=== PATIENT | female | born 1955 | race Caucasian/White ===

== ENCOUNTER → 2016-06-09 | Outpatient (REF) | payer BC ==
[2016-06-09 18:08] LABS: ALBUMIN 3.8 GM/DL (3.2-5.2); ALBUMIN/GLOBULIN RATIO 1.31 (1.00-1.93); ALKALINE PHOSPHATASE 86 U/L (45-117); ALT/SGPT 18 U/L (12-78); ANION GAP 7 MEQ/L (8-16); AST/SGOT 18 U/L (15-37); BILIRUBIN,TOTAL 0.2 MG/DL (0.2-1.0); BLOOD UREA NITROGEN 14 MG/DL (7-18); CALCIUM LEVEL 8.9 MG/DL (8.8-10.2); CARBON DIOXIDE LEVEL 28 MEQ/L (21-32); CHLORIDE LEVEL 108 MEQ/L (98-107); CREATININE FOR GFR 0.74 MG/DL (0.55-1.02); GLOMERULAR FILTRATION RATE > 60.0 (>45); GLUCOSE, FASTING 88 MG/DL (80-110); POTASSIUM SERUM 4.4 MEQ/L (3.5-5.1); SODIUM LEVEL 143 MEQ/L (136-145); TOTAL PROTEIN 6.7 GM/DL (6.4-8.2)
== END ==
LOC: M SFHCPLAZ 15:27
PROVIDERS: ATTEND Nurse Practitioner Adult Health
DX: I50.30 Unspecified diastolic (congestive) heart failure (principal); R73.01 Impaired fasting glucose; E03.9 Hypothyroidism, unspecified

== ENCOUNTER → 2016-06-20 | Outpatient (CLI) | payer OTHER, BC ==
[2016-06-20 15:02] LABS: INR 0.97
== END ==
LOC: M LAB 14:31
PROVIDERS: ATTEND Physical Medicine & Rehabilitation
DX: M47.896 Other spondylosis, lumbar region (principal)

== ENCOUNTER 2016-07-30 16:32 | Emergency (ER) | payer OTHER, BC ==
[~2016-07-30] VITALS: Ht 165.1 cm; Wt 90.7 kg
[2016-07-30] MEDS ORDERED: ANAS1TAB (16:47)
[2016-07-30] MEDS ORDERED: OXYCODONE ACETAMINOPHEN (16:47)
[2016-07-30] MEDS ORDERED: LEVO100T5 (16:47)
[2016-07-30] MEDS ORDERED: DULO1CAP2 (16:47)
[2016-07-30] MEDS ORDERED: VITA50003 (16:47)
[2016-07-30] MEDS ORDERED: METH-107 (16:47)
[2016-07-30] MEDS ORDERED: OMEP40CA2 (16:47)
[2016-07-30] MEDS ORDERED: MEDR4PAK PO (18:01)
[2016-07-30] MEDS ORDERED: ROBA500T PO (18:03)
[2016-07-30 18:16] VITALS: BP 128/60
== END 2016-07-30 18:15 | disposition home or self-care (01) ==
LOC: M ED 17:24
DX: M54.5 Low back pain (principal); G89.29 Other chronic pain

== ENCOUNTER → 2016-09-12 | Outpatient (CLI) | payer BC ==
[~2016-09-12] MED LIST: ANAS1TAB; DULO1CAP2; LEVO100T5; MEDR4PAK PO; METH-107; OMEP40CA2; OXYCODONE ACETAMINOPHEN; ROBA500T PO; VITA50003
--- NOTE | 2016-09-12 14:11 | REP ---
UNILATERAL MAMMOGRAM RIGHT BREAST: Unilateral mammogram of the right breast is performed in the MLO and CC projections. Patient has a history of left breast cancer and mastectomy. Comparison 08/10/2015 as well as other prior exams. Fibroglandular pattern is unchanged with no new mass or architectural distortion. No clustered microcalcifications are seen. IMPRESSION: ACR 2 benign mammogram right breast in this patient status post left mastectomy. Suggest followup mammogram in 1 year. This mammogram was interpreted with the aid of an FDA-approved computer-aided detection system. The patient states she/he had a clinical breast exam in 08/2016. The patient letter being requested is M1. Signed by Piyush Gregg MD 09/12/2016 05:44 P
== END ==
LOC: M RAD 13:29
PROVIDERS: ATTEND Internal Medicine Medical Oncology
DX: Z12.31 Encounter for screening mammogram for malignant neoplasm of breast (principal)

== ENCOUNTER → 2016-09-29 | Outpatient (REF) | payer BC | LOC: M LAB REF 16:28 | PROVIDERS: ATTEND Obstetrics & Gynecology | DX: R30.0 Dysuria (principal) ==

== ENCOUNTER → 2016-09-29 | Outpatient (CLI) | payer BC ==
--- NOTE | 2016-10-03 09:42 | DEXA ---
AP SPINE L1 - L4 0.973 -1.8 -1.5 LT FEMUR TOTAL 0.864 -1.1 -0.9 RT FEMUR TOTAL 0.848 -1.3 -1.0 TOTAL BODY TOTAL OTHER DUAL FEMUR FRAX* ASSESSMENT Risk factors: Mother hip fracture, tobacco user, possible premature menopause. 10 year probability of fracture Major osteoporotic fracture 15.8 % Hip fracture 1.5 % COMMENTS: There is low bone density of the spine and hips. The density of the spine has decreased 10.2% since 01/09/2003. The density of the left hip has increased 1.6% since 01/09/2003. The density of the right hip has decreased 1.6% since 01/09/2003. FOLLOW-UP: Recommendation for the next bone density exam: 2 years. AMEYA
== END ==
LOC: M WHC 14:00
PROVIDERS: ATTEND Internal Medicine Medical Oncology
DX: Z13.820 Encounter for screening for osteoporosis (principal)

== ENCOUNTER 2017-01-16 19:24 | Emergency (ER) | payer OTHER, BC ==
[~2017-01-16] VITALS: Ht 167.6 cm; Wt 90.9 kg
[~2017-01-16 19:24] MED LIST changes: -METH-107; +METH1TAB40; +VITA1CAP40; -VITA50003
[2017-01-16 19:25] VITALS: BP 141/88
[2017-01-16] MEDS ORDERED: diazePAM 5 MG TAB PO ONE (22:45)
[2017-01-16] MEDS ORDERED: OXYCODONE/APAP 5MG/325MG(BULK FOR ED) 1 TABLET PO ONE (22:45)
== END 2017-01-16 22:55 | disposition home or self-care (01) ==
LOC: M ED 19:24
DX: G89.29 Other chronic pain (principal); M54.5 Low back pain; I25.9 Chronic ischemic heart disease, unspecified; E07.9 Disorder of thyroid, unspecified; K21.9 Gastro-esophageal reflux disease without esophagitis; Z79.899 Other long term (current) drug therapy; Z88.0 Allergy status to penicillin; Z88.8 Allergy status to other drugs, medicaments and biological substances; F17.210 Nicotine dependence, cigarettes, uncomplicated

== ENCOUNTER → 2017-05-01 | Outpatient (REF) | payer OTHER ==
[2017-05-01 16:07] LABS: INR 0.85
== END ==
LOC: M LABDRAW1 13:43
PROVIDERS: ATTEND Physical Medicine & Rehabilitation
DX: M48.07 Spinal stenosis, lumbosacral region (principal)

== ENCOUNTER → 2017-09-08 | Outpatient (CLI) | payer OTHER | LOC: M RAD 13:58 | DX: F17.210 Nicotine dependence, cigarettes, uncomplicated (principal) | CPT/HCPCS: G0297 ==

== ENCOUNTER → 2017-11-21 | Outpatient (CLI) | payer OTHER | LOC: M RAD 14:09 | DX: Z12.31 Encounter for screening mammogram for malignant neoplasm of breast (principal); Z85.3 Personal history of malignant neoplasm of breast; Z90.12 Acquired absence of left breast and nipple | CPT/HCPCS: 77067 ==

== ENCOUNTER → 2018-05-17 | Outpatient (REF) | payer OTHER ==
[~2018-05-17] MED LIST changes: -ANAS1TAB; +ANAS1TAB2; +FURO40TA2 OR; +OXYC-517 PO; +OXYC1TAB23 PO; +TIZA2TA OR; -VITA1CAP40; +VITA50005
[2018-05-17 12:33] LABS: HEMATOCRIT 44.3 % (36.0-47.0); HEMOGLOBIN 14.9 g/dl (12.0-15.5); MEAN CORPUSCULAR HEMOGLOBIN 30.6 pg (27.0-33.0); MEAN CORPUSCULAR HGB CONC 33.6 g/dl (32.0-36.5); PLATELET COUNT, AUTOMATED 262 10^3/uL (150-450); RED BLOOD COUNT 4.87 10^6/uL (4.00-5.40); WHITE BLOOD COUNT 6.4 10^3/uL (4.0-10.0)
[2018-05-17 12:45] LABS: ALBUMIN 3.7 GM/DL (3.2-5.2); ALT/SGPT 54 U/L (12-78); BILIRUBIN,TOTAL 0.4 MG/DL (0.2-1.0); BLOOD UREA NITROGEN 13 MG/DL (7-18); CARBON DIOXIDE LEVEL 27 MEQ/L (21-32); CHLORIDE LEVEL 106 MEQ/L (98-107); CREATININE FOR GFR 0.97 MG/DL (0.55-1.30); GLOMERULAR FILTRATION RATE > 60.0 (>45); GLUCOSE, FASTING 88 MG/DL (70-100); POTASSIUM SERUM 4.6 MEQ/L (3.5-5.1); SODIUM LEVEL 139 MEQ/L (136-145); TOTAL PROTEIN 6.8 GM/DL (6.4-8.2)
== END ==
LOC: M SFHCPLAZ 09:32
PROVIDERS: ATTEND Nurse Practitioner Adult Health
DX: I50.30 Unspecified diastolic (congestive) heart failure (principal); E03.9 Hypothyroidism, unspecified

== ENCOUNTER → 2018-07-02 | Outpatient (REF) | payer OTHER ==
[~2018-07-02] MED LIST changes: +ANAS1TAB2 PO
[2018-07-02 12:43] LABS: INR 0.92; PROTHROMBIN TIME 12.5 SECONDS (12.1-14.4)
[2018-07-02 12:44] LABS: PARTIAL THROMBOPLASTIN TIME 30.3 SECONDS (25.4-37.6)
== END ==
LOC: M LABDRAW1 11:03
PROVIDERS: ATTEND Physician Assistant
DX: Z01.812 Encounter for preprocedural laboratory examination (principal)

== ENCOUNTER → 2018-07-13 | Outpatient (CLI) | payer OTHER ==
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
== END ==
LOC: M PAIN 14:45
PROVIDERS: ATTEND Anesthesiology
DX: M46.1 Sacroiliitis, not elsewhere classified (principal); M47.816 Spondylosis without myelopathy or radiculopathy, lumbar region; G89.29 Other chronic pain; Z85.3 Personal history of malignant neoplasm of breast; Z92.21 Personal history of antineoplastic chemotherapy; E55.9 Vitamin D deficiency, unspecified; M85.80 Other specified disorders of bone density and structure, unspecified site; Z86.69 Personal history of other diseases of the nervous system and sense organs; R73.01 Impaired fasting glucose; E78.5 Hyperlipidemia, unspecified; E03.9 Hypothyroidism, unspecified; F17.210 Nicotine dependence, cigarettes, uncomplicated; Z88.0 Allergy status to penicillin; Z88.1 Allergy status to other antibiotic agents; Z88.6 Allergy status to analgesic agent; Z88.8 Allergy status to other drugs, medicaments and biological substances; K21.9 Gastro-esophageal reflux disease without esophagitis; Z79.899 Other long term (current) drug therapy

== ENCOUNTER 2018-09-19 17:07 | Emergency (ER) | payer OTHER ==
[~2018-09-19] VITALS: Ht 165.1 cm; Wt 115.0 kg
--- NOTE | 2018-09-19 18:57 | REPVR ---
EXAM: US Duplex Left Lower Extremity Veins, Limited EXAM DATE/TIME: 09/19/2018 6:26 PM CLINICAL HISTORY: 63 years old, female; Pain; Leg, upper; Left; Additional info: Left leg pain, swelling TECHNIQUE: Imaging protocol: Real-time Duplex ultrasound of the Left Lower Extremity with 2-D plummer scale, color Doppler flow and spectral waveform analysis. Limited exam focused on the left lower extremity veins. COMPARISON: No relevant prior studies available. FINDINGS: Left deep veins: Unremarkable. The common femoral, femoral, proximal profunda femoral and popliteal veins are patent without thrombus. Normal Doppler waveforms. Normal compressibility and/or augmentation response. Left superficial veins: Unremarkable. Saphenofemoral junction is patent without thrombus. Soft tissues: Unremarkable. IMPRESSION: No acute findings. No evidence of deep vein thrombosis. Electronically signed by: Elmer Bedoya On 09/19/2018 18:56:49 PM
[2018-09-19] MEDS ORDERED: LYRI75CA PO ×2 (19:14→20:09)
[2018-09-19 19:15] VITALS: BP 136/66
[2018-09-19] MEDS ORDERED: PREGABALIN 75 MG CAP(LYRICA) PO ONE (19:15)
== END 2018-09-19 20:18 | disposition home or self-care (01) ==
LOC: M ED 17:07
DX: G62.9 Polyneuropathy, unspecified (principal); I50.9 Heart failure, unspecified; E78.5 Hyperlipidemia, unspecified; G89.29 Other chronic pain; M54.5 Low back pain; E03.9 Hypothyroidism, unspecified; Z79.899 Other long term (current) drug therapy; Z79.890 Hormone replacement therapy; Z88.0 Allergy status to penicillin; Z88.8 Allergy status to other drugs, medicaments and biological substances; F17.210 Nicotine dependence, cigarettes, uncomplicated

== ENCOUNTER → 2018-09-21 | Outpatient (CLI) | payer OTHER ==
[~2018-09-21] MED LIST changes: +LYRI75CA PO
--- NOTE | 2018-09-22 11:30 | ECHO ---
DATE OF STUDY: 09/21/2018 REFERRING INDIVIDUAL: MARLEY Long INDICATION: Diastolic heart failure. HEIGHT: 65 inches. WEIGHT: 245 pounds. 2D MEASUREMENTS: Aortic annulus: 2.3 cm Aortic root: 3.5 cm Left atrium: 3.1 cm Ventricular septum: 1.22 cm Posterior wall: 1.17 cm Left ventricle diastole: 4.1 cm DOPPLER MEASUREMENTS: Aortic valve velocity: 103 cm/s LVOT velocity: 71.7 cm/s Mitral E velocity: 49.5 cm/s Mitral A velocity: 55.3 cm/s Mitral deceleration time: 280 ms MITRAL ANNULAR TISSUE DOPPLER: E prime septal: 6.63 cm/s E prime lateral: 6.74 cm/s DESCRIPTION: Rhythm was sinus. This was a moderately technically difficult echocardiogram. No pericardial effusion. Frequent premature ventricular contractions (PVCs). CONCLUSIONS: 1. Borderline concentric left ventricle hypertrophy. Normal regional left ventricular (LV) wall motion and wall thickening. Normal LV systolic function. Left ventricular ejection fraction (LVEF) 65% by visual estimate. Grade 1 LV diastolic dysfunction. 2. Frequent PVCs. 3. Moderately technically difficult echocardiogram. 4. Otherwise, normal-appearing echocardiogram Doppler findings.
== END ==
LOC: M CARPUL 10:20
PROVIDERS: ATTEND Nurse Practitioner Adult Health
DX: I50.30 Unspecified diastolic (congestive) heart failure (principal)

== ENCOUNTER → 2018-10-31 | Outpatient (CLI) | payer OTHER ==
--- NOTE | 2018-11-01 07:16 | REP ---
CT ORBITS: CT orbits is performed without the use of intravenous contrast in the axial plane. Sagittal and coronal reconstruction images are performed. No fracture is seen of either orbit. Orbital floors are intact. Visualized paranasal sinuses are clear. Globes are intact. IMPRESSION: No evidence of orbital fracture. Electronically Signed by Piyush Gregg MD 11/01/2018 09:15 A
--- NOTE | 2018-11-01 07:16 | REP ---
CT BRAIN WITHOUT CONTRAST: CT brain performed without IV contrast. There is mild atrophy. There is no midline shift or mass effect. Gregg-white differentiation is well maintained. There are mild periventricular small vessel ischemic changes in the white matter. There is no acute intracranial hemorrhage or extra-axial fluid collection. No skull fracture is seen. IMPRESSION: No evidence of acute intracranial hemorrhage or skull fracture. Mild atrophy and periventricular small vessel ischemic changes. Electronically Signed by Piyush Gregg MD 11/01/2018 09:15 A
== END ==
LOC: M RAD 16:32
PROVIDERS: ATTEND Physician Assistant
DX: S00.83XA Contusion of other part of head, initial encounter (principal); X58.XXXA Exposure to other specified factors, initial encounter; Y92.89 Other specified places as the place of occurrence of the external cause

== ENCOUNTER 2018-11-13 15:48 | Emergency (ER) | payer OTHER ==
[~2018-11-13] VITALS: Ht 165.1 cm; Wt 113.2 kg
[~2018-11-13 15:48] MED LIST changes: -DULO1CAP2; +DULO1CAP5
[2018-11-13] MEDS ORDERED: MORP-38 PO (16:00)
--- NOTE | 2018-11-13 17:09 | REP ---
Clinical: Trauma/head injury. Comparison: 10/31/2018 . Findings: Age-related atrophy and microvascular ischemic changes are appreciated along with subtle periventricular leukomalacia. Findings appear relatively stable compared to prior examination. The ventricles and sulci are symmetric. Gregg-white differentiation is maintained. There is no evidence for acute intracranial hemorrhage, mass/mass effect, pathology or infarction. No extra-axial fluid collection. Calvarium is intact. Paranasal sinuses and mastoid air cells are clear. Impression: Age related atrophy and microvascular ischemic changes. No acute intracranial hemorrhage, infarction, or mass/mass effect. Electronically Signed by Bam Licona MD 11/13/2018 05:00 P
[2018-11-13 17:57] VITALS: BP 138/86
== END 2018-11-13 19:04 | disposition home or self-care (01) ==
LOC: M ED 15:48
DX: S06.0X0A Concussion without loss of consciousness, initial encounter (principal); W22.8XXA Striking against or struck by other objects, initial encounter; Y92.89 Other specified places as the place of occurrence of the external cause; G62.9 Polyneuropathy, unspecified; E03.9 Hypothyroidism, unspecified; K21.9 Gastro-esophageal reflux disease without esophagitis; Z79.899 Other long term (current) drug therapy; Z79.890 Hormone replacement therapy; Z88.0 Allergy status to penicillin; Z88.8 Allergy status to other drugs, medicaments and biological substances; F17.210 Nicotine dependence, cigarettes, uncomplicated

== ENCOUNTER → 2019-01-01 | Outpatient (REF) | payer OTHER ==
[~2019-01-01] MED LIST changes: +MORP-69 PO
[2019-01-01 17:29] LABS: ALBUMIN 3.6 GM/DL (3.2-5.2); ALT/SGPT 60 U/L (12-78); BILIRUBIN,TOTAL 0.6 MG/DL (0.2-1.0); BLOOD UREA NITROGEN 8 MG/DL (7-18); CALCIUM LEVEL 9.1 MG/DL (8.8-10.2); CARBON DIOXIDE LEVEL 30 MEQ/L (21-32); CHLORIDE LEVEL 104 MEQ/L (98-107); CREATININE FOR GFR 0.83 MG/DL (0.55-1.30); GLOMERULAR FILTRATION RATE > 60.0 (>45); GLUCOSE, FASTING 82 MG/DL (70-100); POTASSIUM SERUM 4.1 MEQ/L (3.5-5.1); SODIUM LEVEL 139 MEQ/L (136-145); TOTAL 25(OH) VITAMIN D 15.4 NG/ML (30.0-100.0); TOTAL PROTEIN 6.9 GM/DL (6.4-8.2)
[2019-01-01 17:38] LABS: HEMOGLOBIN A1c 6.1 %
== END ==
LOC: M SFHCPLAZ 15:29
PROVIDERS: ATTEND Nurse Practitioner Adult Health
DX: E03.9 Hypothyroidism, unspecified (principal); I50.30 Unspecified diastolic (congestive) heart failure; R73.01 Impaired fasting glucose; E55.9 Vitamin D deficiency, unspecified

== ENCOUNTER → 2019-01-09 | Outpatient (CLI) | payer OTHER ==
--- NOTE | 2019-01-09 10:56 | REPMRS ---
Patient History The patient states she has not had a clinical breast exam in over a year. Left breast mastectomy 2011. Family history of ovarian cancer at age 50 or over in maternal aunt, unknown cancer at age 50 or over in maternal grandmother, breast cancer at age 50 or over in maternal cousin. Benign radio exam breast specimen of the right breast, November 29, 2012. Benign stereotatic loc for ea lesion of the right breast, November 29, 2012. Digital Mammo Screening Bilat: January 09, 2019 - Exam #: [id number] Bilateral CC and MLO view(s) were taken. Technologist: Yessi Jones, Technologist Prior study comparison: November 21, 2017, bilateral digital mammo screening bilat performed at [facility]. September 12, 2016, right breast digital mammo diagnostic unilateral performed at [facility]. August 10, 2015, right breast digital mammo diagnostic unilateral performed at [facility]. FINDINGS: There are scattered fibroglandular densities. There is a needle biopsy marker clip again noted in the right upper outer quadrant. There has been no change in the appearance of the right breast parenchyma in the interval since the prior examination. No mass, architectural distortion, or microcalcific grouping has developed. No suspicious finding. Assessment: BI-RADS/ACR category 2 mammogram. Benign Findings. Recommendation Routine screening mammogram of the right breast in 1 year. This mammogram was interpreted with the aid of an FDA-approved computer-aided dectection system. Electronically Signed By: Mack Fry MD 01/09/19 6901
== END ==
LOC: M RAD 09:44
PROVIDERS: ATTEND Internal Medicine Hematology & Oncology
DX: Z12.31 Encounter for screening mammogram for malignant neoplasm of breast (principal)

== ENCOUNTER → 2019-01-25 | Outpatient (REF) | payer OTHER ==
[2019-01-25 16:00] LABS: PLATELET COUNT, AUTOMATED 273 10^3/uL (150-450)
[2019-01-25 16:17] LABS: INR 0.99; PROTHROMBIN TIME 12.8 SECONDS (11.8-14.0)
[2019-01-25 16:18] LABS: PARTIAL THROMBOPLASTIN TIME 31.7 SECONDS (25.0-38.4)
== END ==
LOC: M LABDRAW1 14:37
PROVIDERS: ATTEND Physician Assistant
DX: Z01.812 Encounter for preprocedural laboratory examination (principal); M53.3 Sacrococcygeal disorders, not elsewhere classified

== ENCOUNTER → 2019-02-15 | Outpatient (CLI) | payer OTHER ==
--- NOTE | 2019-02-15 19:55 | REP ---
HISTORY: Tobacco abuse. COMPARISON: All priors were reviewed, the latest 09/08/2017. As per the protocol only lung window images were sent to the read station for interpretation. The 9 mm sized nodule in the right upper lobe is stable and has been so for many years. There are no new abnormal nodules, masses or opacities. Grossly the mediastinum and pulmonary volodymyr are unchanged showing no abnormality. Grossly, the imaged upper abdomen and imaged osseous structures are unchanged showing no gross abnormality. IMPRESSION: Stable CT examination of the chest. Lung RADS category 2. Continued yearly screening CT examination of the chest is recommended as per the revised Nasir Society criteria. Electronically Signed by Carlos Gardiner DO 02/18/2019 04:14 P
== END ==
LOC: M RAD 15:03
PROVIDERS: ATTEND Internal Medicine Hematology & Oncology
DX: Z12.2 Encounter for screening for malignant neoplasm of respiratory organs (principal); F17.218 Nicotine dependence, cigarettes, with other nicotine-induced disorders; R91.1 Solitary pulmonary nodule

== ENCOUNTER → 2019-03-15 | Outpatient (CLI) | payer OTHER ==
[~2019-03-15] MED LIST changes: -OMEP40CA2; +OMEP40CA97; -TIZA2TA OR; +TIZA2TA PO
--- NOTE | 2019-03-15 17:11 | REP ---
BILATERAL UPPER EXTREMITY DUPLEX DOPPLER ARTERIAL ULTRASOUND: Real-time ultrasound evaluation and duplex Doppler interrogation of the bilateral upper extremity arterial systems is performed. There is no evidence of significant stenosis of the upper extremity arterial systems. Very mild plaquing is seen. Biphasic and triphasic waveforms are seen diffusely bilaterally. PEAK SYSTOLIC VELOCITY RIGHT LEFT Subclavian artery 123.9 cm/s 148.5 cm/s Axillary 91.4 61.5 Brachial 85.0 99.5 Radial 42.7 46.6 Ulnar 79.4 67.1 IMPRESSION: Very mild plaquing bilaterally of the upper extremity arterial systems. No evidence of hemodynamically significant stenosis bilaterally. Unreviewed
--- NOTE | 2019-03-15 17:15 | REP ---
BILATERAL LOWER EXTREMITY ARTERIAL DOPPLER ULTRASOUND: HISTORY: Peripheral vascular disease. FINDINGS: Ankle brachial indices could not be obtained. Apparently, the patient was unable to tolerate blood pressure cuff placement on the lower extremities. There is a history of left mastectomy. Mild plaquing is seen throughout the lower extremity arterial system. Relatively normal triphasic and biphasic waveforms are noted throughout. No high-grade stenosis is seen. VELOCITY CHART, RIGHT LOWER EXTREMITY ARTERIES: KNIFE SETTER GRINDER MACHINE 136 cm/s Profunda 92 Proximal SFA 107 Mid SFA 95 Distal SFA 110 Popliteal 57 Proximal ARLINE 50 Tibioperoneal trunk 74 Proximal CABLE FORMER 63 Distal CABLE FORMER 49 Distal ARLINE 41 VELOCITY CHART, LEFT LOWER EXTREMITY ARTERIES: KNIFE SETTER GRINDER MACHINE 126 cm/sProfunda 98 Proximal SFA 104 Mid SFA 80 Distal SFA 80 Popliteal 59 Proximal ARLINE 41 Tibioperoneal trunk 53 Proximal CABLE FORMER 56 Distal CABLE FORMER 39 Distal ARLINE 53 Electronically Signed by Eddie Fry MD 03/16/2019 09:31 A
== END ==
LOC: M RAD 13:30
PROVIDERS: ATTEND Internal Medicine Hematology & Oncology
DX: I73.9 Peripheral vascular disease, unspecified (principal)

== ENCOUNTER → 2019-07-03 | Outpatient (REF) | payer MEDICARE, MEDICAID ==
[2019-07-03 18:29] LABS: HEMATOCRIT 44.2 % (36.0-47.0); HEMOGLOBIN 14.5 g/dl (12.0-15.5); MEAN CORPUSCULAR HEMOGLOBIN 31.2 pg (27.0-33.0); MEAN CORPUSCULAR HGB CONC 32.8 g/dl (32.0-36.5); MEAN CORPUSCULAR VOLUME 95.1 fl (80.0-96.0); PLATELET COUNT, AUTOMATED 300 10^3/uL (150-450); RED BLOOD COUNT 4.65 10^6/uL (4.00-5.40); WHITE BLOOD COUNT 8.4 10^3/uL (4.0-10.0)
[2019-07-03 18:50] LABS: HEMOGLOBIN A1c 6.2 %
[2019-07-03 19:08] LABS: ALBUMIN 3.6 GM/DL (3.2-5.2); ALT/SGPT 35 U/L (12-78); BILIRUBIN,TOTAL 0.6 MG/DL (0.2-1.0); BLOOD UREA NITROGEN 9 MG/DL (7-18); CARBON DIOXIDE LEVEL 29 MEQ/L (21-32); CHLORIDE LEVEL 103 MEQ/L (98-107); CHOLESTEROL LEVEL 182 MG/DL (<200); CHOLESTEROL RISK RATIO 5.687 (<5); CREATININE FOR GFR 0.85 MG/DL (0.55-1.30); GLOMERULAR FILTRATION RATE > 60.0 (>45); GLUCOSE, FASTING 82 MG/DL (70-100); HDL CHOLESTEROL 32 MG/DL (>40); LDL CHOLESTEROL 123 MG/DL (<100); NON-HDL-C 150 MG/DL; POTASSIUM SERUM 4.5 MEQ/L (3.5-5.1); SODIUM LEVEL 137 MEQ/L (136-145); TOTAL 25(OH) VITAMIN D 45.3 NG/ML (30.0-100.0); TOTAL PROTEIN 6.5 GM/DL (6.4-8.2); TRIGLYCERIDES LEVEL 133 MG/DL (<150)
== END ==
LOC: M SFHCPLAZ 13:51
PROVIDERS: ATTEND Nurse Practitioner Adult Health
DX: R73.01 Impaired fasting glucose (principal); E55.9 Vitamin D deficiency, unspecified; I50.30 Unspecified diastolic (congestive) heart failure; E03.9 Hypothyroidism, unspecified; Z13.220 Encounter for screening for lipoid disorders
CPT/HCPCS: 36415; 80053; 80061; 82306; 83036; 84443; 85027; G0463

== ENCOUNTER → 2019-08-21 | Outpatient (CLI) | payer MEDICARE, MEDICAID ==
--- NOTE | 2019-08-21 14:38 | REP ---
REASON FOR EXAM: Chronic venous insufficiency. TECHNIQUE: Multiple ultrasonographic images of the deep venous structures of the thigh were obtained from the common femoral vein to the popliteal vein along with Doppler interrogation and color flow Doppler images. FINDINGS: There is no abnormal echogenic material seen within any of the visualized deep venous structures that would suggest acute thrombosis. Coaptation is unremarkable throughout. Doppler interrogation shows an expected response to respiratory variability and augmentation. The color flow images show what appears to be a normal vascular pattern throughout. IMPRESSION: There is no ultrasonographic evidence of deep venous thrombosis involving any of the visualized deep venous structures of the bilateral thigh, as described above. Bilateral deep vein reflux study was also performed. On the right: No reflux was seen in the common femoral vein. An anterior accessory greater saphenous vein is not present. No reflux was seen in the greater saphenous vein at the saphenous femoral junction, the AP dimension of which measures 4.4 mm. No reflux is seen at the greater saphenous vein mid thigh junction, the AP dimension of which measures 4.1 mm. No reflux is seen in the greater saphenous vein at the knee, the AP dimension of which measures 3 mm. No reflux was seen in any portion of the superficial femoral vein, popliteal vein, or lesser saphenous vein the AP dimension of which measures 2.1 mm. On the left: No reflux was seen in the common femoral vein. An anterior accessory greater saphenous vein is not present. No reflux was seen in the greater saphenous vein at the saphenous femoral junction, the AP dimension of which measures 5.8 mm. No reflux is seen in the greater saphenous vein at the mid thigh, the AP dimension of which measures 3.8 mm. No reflux is seen in the greater saphenous vein at the knee, the AP dimension of which measures 3.1 mm. No reflux is seen in any portion of the superficial femoral vein, popliteal vein, or lesser saphenous vein, the AP dimension of which measures 3.5 mm. IMPRESSION: Negative bilateral deep vein reflux study as described above. Electronically Signed by Carlos Gardiner DO 08/21/2019 04:59 P
== END ==
LOC: M RAD 12:53
PROVIDERS: ATTEND Physician Assistant
DX: Z86.718 Personal history of other venous thrombosis and embolism (principal); Z79.899 Other long term (current) drug therapy

== ENCOUNTER 2019-09-24 14:24 | Emergency (ER) | payer MEDICARE, MEDICAID ==
[~2019-09-24] VITALS: Ht 165.1 cm; Wt 116.0 kg
[2019-09-24] MEDS ORDERED: ISOVUE-370 76% 100ML VIAL As Ordered ONE (15:56)
[2019-09-24 16:02] LABS: BASO # 0.1 10^3/uL (0.0-0.2); BASO % 0.9 % (0.0-1.0); EOS # 0.2 10^3/uL (0.0-0.5); EOS % 3.1 % (0.0-3.0); HEMATOCRIT 44.8 % (36.0-47.0); HEMOGLOBIN 14.7 g/dl (12.0-15.5); LYMPH # 1.3 10^3/uL (1.5-5.0); LYMPH % 19.8 % (24.0-44.0); MEAN CORPUSCULAR HEMOGLOBIN 30.5 pg (27.0-33.0); MEAN CORPUSCULAR HGB CONC 32.8 g/dl (32.0-36.5); MEAN CORPUSCULAR VOLUME 92.9 fl (80.0-96.0); MONO # 0.5 10^3/uL (0.0-0.8); MONO % 7.1 % (0.0-5.0); NEUTROPHILS # 4.5 10^3/uL (1.5-8.5); NEUTROPHILS % 68.5 % (36.0-66.0); PLATELET COUNT, AUTOMATED 274 10^3/uL (150-450); RED BLOOD COUNT 4.82 10^6/uL (4.00-5.40); WHITE BLOOD COUNT 6.5 10^3/uL (4.0-10.0)
[2019-09-24 16:23] LABS: ALBUMIN 3.5 GM/DL (3.2-5.2); ALT/SGPT 46 U/L (12-78); BILIRUBIN,DIRECT 0.2 MG/DL (0.0-0.2); BILIRUBIN,TOTAL 0.5 MG/DL (0.2-1.0); CK-MB VALUE MASS < 1.0 NG/ML (<3.6); CPK CREATINE PHOSPHOKINASE 61 U/L (26-192); MB/CK RELATIVE INDEX 1.64 (< OR =4); NT-PRO BNP 88 PG/ML (<125); THYROXINE (T4) 13.4 UG/DL (4.5-12.0); TOTAL PROTEIN 6.6 GM/DL (6.4-8.2); TROPONIN I < 0.02 NG/ML (< 0.10)
[2019-09-24 16:41] LABS: INR 1.06; PROTHROMBIN TIME 13.5 SECONDS (11.8-14.0)
--- NOTE | 2019-09-24 16:46 | REP ---
CT ANGIOGRAM OF THE CHEST: TECHNIQUE: Axial contrast-enhanced images from the thoracic inlet to the upper abdomen using 100 mL Isovue-370 intravenous contrast material with multiplanar reformations. There is no CT evidence of pulmonary embolism. There is no thoracic aortic aneurysm or dissection. There is mild atherosclerotic calcification. Heart is not enlarged. There is no pleural or pericardial effusion. No significant mediastinal, hilar, or chest wall lymphadenopathy is seen. Metallic clips are seen in the left axillary region. There is no pleural or pericardial effusion. Stable 9 mm nodule is seen in the right upper lobe, unchanged compared to the multiple prior chest CT exams dating back to 09/08/2017. No new nodule or infiltrate is seen. There is mild bibasilar fibroatelectatic change. There is diffuse fatty infiltration of the liver. There are degenerative changes of the spine. IMPRESSION: No CT evidence of pulmonary embolism or other acute finding. Electronically Signed by Piyush Gregg MD 09/24/2019 08:08 P
[2019-09-24 17:01] VITALS: O2SAT 95
[2019-09-24 17:11] VITALS: BP 123/79
--- NOTE | 2019-09-25 08:38 | ECGEPIP ---
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
[2019-09-27] MEDS ORDERED: DULO1CAP6 PO (14:49)
[2019-09-27] MEDS ORDERED: VITA50005 PO (14:52)
== END 2019-09-24 17:16 | disposition home or self-care (01) ==
LOC: M ED 14:24
DX: R60.0 Localized edema (principal); R23.8 Other skin changes; R00.0 Tachycardia, unspecified; G62.9 Polyneuropathy, unspecified; E03.9 Hypothyroidism, unspecified; M54.9 Dorsalgia, unspecified; K21.9 Gastro-esophageal reflux disease without esophagitis; Z85.3 Personal history of malignant neoplasm of breast; Z90.12 Acquired absence of left breast and nipple; F17.200 Nicotine dependence, unspecified, uncomplicated; Z88.0 Allergy status to penicillin; Z88.8 Allergy status to other drugs, medicaments and biological substances; Z79.899 Other long term (current) drug therapy; Z79.891 Long term (current) use of opiate analgesic
CPT/HCPCS: 71275; 80047; 80076; 82550; 82553; 83880; 84436; 84443; 84484; 85025; 85610; 93005; 99284; Q9967

== ENCOUNTER → 2019-09-27 | Outpatient (CLI) | payer MEDICARE, MEDICAID ==
[~2019-09-27] MED LIST changes: +DULO1CAP6 PO; +VITA50005 PO
[2019-09-27 14:45] LABS: BASO # 0.1 10^3/uL (0.0-0.2); EOS # 0.3 10^3/uL (0.0-0.5); EOS % 4.1 % (0.0-3.0); HEMATOCRIT 45.8 % (36.0-47.0); HEMOGLOBIN 14.9 g/dl (12.0-15.5); LYMPH # 1.4 10^3/uL (1.5-5.0); LYMPH % 22.6 % (24.0-44.0); MEAN CORPUSCULAR HEMOGLOBIN 30.5 pg (27.0-33.0); MEAN CORPUSCULAR HGB CONC 32.5 g/dl (32.0-36.5); MEAN CORPUSCULAR VOLUME 93.7 fl (80.0-96.0); MONO # 0.4 10^3/uL (0.0-0.8); MONO % 6.8 % (0.0-5.0); NEUTROPHILS # 3.9 10^3/uL (1.5-8.5); NEUTROPHILS % 64.8 % (36.0-66.0); PLATELET COUNT, AUTOMATED 278 10^3/uL (150-450); RED BLOOD COUNT 4.89 10^6/uL (4.00-5.40)
== END ==
LOC: M LAB 14:12
PROVIDERS: ATTEND Internal Medicine Hematology & Oncology
DX: C50.919 Malignant neoplasm of unspecified site of unspecified female breast (principal)

== ENCOUNTER → 2019-10-28 | Outpatient (CLI) | payer OTHER ==
[2019-10-28 17:13] LABS: PLATELET COUNT, AUTOMATED 274 10^3/uL (150-450)
[2019-10-28 17:30] LABS: INR 0.99; PROTHROMBIN TIME 12.8 SECONDS (11.8-14.0)
[2019-10-28 17:31] LABS: PARTIAL THROMBOPLASTIN TIME 34.7 SECONDS (25.0-38.4)
== END ==
LOC: M WUC 14:33
PROVIDERS: ATTEND Physician Assistant
DX: Z01.812 Encounter for preprocedural laboratory examination (principal); M53.3 Sacrococcygeal disorders, not elsewhere classified

== ENCOUNTER → 2019-11-14 | Outpatient (CLI) | payer OTHER | LOC: M LABSMTC 12:18 | PROVIDERS: ATTEND Physical Medicine & Rehabilitation | DX: Z03.818 Encounter for observation for suspected exposure to other biological agents ruled out (principal); Z11.59 Encounter for screening for other viral diseases ==

== ENCOUNTER → 2020-02-12 | Outpatient (CLI) | payer OTHER, MEDICARE | LOC: M LABSMTC 11:34 | PROVIDERS: ATTEND Physical Medicine & Rehabilitation | DX: Z01.812 Encounter for preprocedural laboratory examination (principal); Z20.828 Contact with and (suspected) exposure to other viral communicable diseases ==

== ENCOUNTER → 2020-03-18 | Outpatient (CLI) | payer OTHER, MEDICARE | LOC: M LABSMTC 11:39 | PROVIDERS: ATTEND Physical Medicine & Rehabilitation | DX: Z01.818 Encounter for other preprocedural examination (principal) ==

== ENCOUNTER → 2020-04-22 | Outpatient (CLI) | payer MEDICARE, MEDICAID ==
[~2020-04-22] MED LIST changes: +CALC500T60 PO; -LEVO100T5; +LEVO100T5 PO; -OMEP40CA97; +OMEP40CA97 PO; +PRED25TA PO
--- NOTE | 2020-04-22 15:36 | REPMRS ---
Patient History The patient states she had a clinical breast exam in 2019. Patient has history of cancer in the left breast at age 56. Family history of ovarian cancer at age 50 or over in maternal aunt, unknown cancer at age 50 or over in maternal grandmother, breast cancer at age 50 or over in maternal cousin. Benign radio exam breast specimen of the right breast, November 29, 2012. Benign stereotatic loc for ea lesion of the right breast, November 29, 2012. Taking tamoxifen for 8 years. Digital Woman Screen Mammo: April 22, 2020 - Exam #: [id number] Bilateral CC and MLO view(s) were taken. Technologist: Yessi Jones, Technologist Prior study comparison: January 09, 2019, bilateral digital mammo screening bilat, performed at [facility]. November 21, 2017, bilateral digital mammo screening bilat, performed at [facility]. September 12, 2016, right breast digital mammo diagnostic unilateral, performed at [facility]. FINDINGS: The breast tissue is almost entirely fat. There has been no change in the appearance of the right breast parenchyma in the interval since the prior examination. No mass, architectural distortion, or microcalcific grouping has developed. No suspicious finding. There is a needle biopsy marker clip in the right breast. 3-D tomosynthesis shows no additional findings. Assessment: BI-RADS/ACR category 2 mammogram. Benign Findings. Recommendation Routine screening mammogram of the right breast in 1 year. This mammogram was interpreted with the aid of an FDA-approved computer-aided dectection system. Electronically Signed By: Mack Fry MD 04/22/20 6201
--- NOTE | 2020-04-22 16:00 | DEXAMM ---
INDICATION: BREAST CA,OM AI. COMPARISON: September 29, 2016 and January 09, 2013.. TECHNIQUE: Bone density was measured using dual-energy x-ray absorptionmetry (DEXA). FINDINGS: AP SPINE L1-L4 BMD 0.903 g/cm2 Young Adult T-Score -2.4 Age Matched Z-Score -0.9. LT FEMUR, TOTAL BMD 0.746 g/cm2 Young Adult T-Score -2.1 Age Matched Z-Score -0.9. LT NECK BMD 0.735 g/cm2 Young Adult T-Score -2.2 Age Matched Z-Score -0.8. RT FEMUR, TOTAL BMD 0.764 g/cm2 Young Adult T-Score -1.9 Age Matched Z-Score -0.8. RT NECK BMD 0.766 g/cm2 Young Adult T-Score -2.0 Age Matched Z-Score -0.5. IMPRESSION: There is low bone density of the spine. There is low bone density of the left hip. There is low bone density of the right hip. The density of the spine has decreased 16.6% since the initial exam on January 09, 2013. The density of the spine decreased 7.2% since most recent exam on September 29, 2016. The density of the left hip has decreased 12.2% since initial exam on January 09, 2013. The density of the left hip has decreased 13.7% since most recent exam on September 29, 2016. The density of the right hip has decreased 11.4% since the initial exam on January 09, 2013. The density of the right hip has decreased 9.9% since the most recent exam on September 29, 2016. FOLLOW-UP: Recommendation for the next bone density exam: 2 years. <Electronically signed by Mack Fry > 04/22/20 0438
== END ==
LOC: M WHC 14:31
PROVIDERS: ATTEND Internal Medicine Hematology & Oncology
DX: Z12.31 Encounter for screening mammogram for malignant neoplasm of breast (principal); N60.31 Fibrosclerosis of right breast; M85.88 Other specified disorders of bone density and structure, other site; M85.851 Other specified disorders of bone density and structure, right thigh; M85.852 Other specified disorders of bone density and structure, left thigh; Z85.3 Personal history of malignant neoplasm of breast; Z79.811 Long term (current) use of aromatase inhibitors

== ENCOUNTER → 2020-07-06 | Outpatient (REF) | payer MEDICARE, MEDICAID ==
[~2020-07-06] MED LIST changes: +ECOT81TA5 PO; +METH-1164; -METH1TAB40; +TAMO20TA8 PO
[2020-07-06 18:07] LABS: HEMOGLOBIN A1c 5.4 %
[2020-07-06 18:19] LABS: ALBUMIN 3.3 GM/DL (3.2-5.2); ALT/SGPT 48 U/L (12-78); BILIRUBIN,TOTAL 0.5 MG/DL (0.2-1.0); BLOOD UREA NITROGEN 10 MG/DL (7-18); CALCIUM LEVEL 8.6 MG/DL (8.8-10.2); CARBON DIOXIDE LEVEL 30 MEQ/L (21-32); CHLORIDE LEVEL 105 MEQ/L (98-107); CREATININE FOR GFR 0.73 MG/DL (0.55-1.30); GLOMERULAR FILTRATION RATE > 60.0 (>45); GLUCOSE, FASTING 79 MG/DL (70-100); POTASSIUM SERUM 4.7 MEQ/L (3.5-5.1); SODIUM LEVEL 139 MEQ/L (136-145); TOTAL 25(OH) VITAMIN D 30.9 NG/ML (30.0-100.0); TOTAL PROTEIN 6.5 GM/DL (6.4-8.2)
== END ==
LOC: M SFHCPLAZ 15:09
PROVIDERS: ATTEND Nurse Practitioner Adult Health
DX: R73.01 Impaired fasting glucose (principal); I50.30 Unspecified diastolic (congestive) heart failure; E55.9 Vitamin D deficiency, unspecified; E03.9 Hypothyroidism, unspecified

== ENCOUNTER → 2020-11-02 | Outpatient (REF) | payer MEDICARE, MEDICAID ==
[~2020-11-02] MED LIST changes: +ERGO500029 PO; +OMEP40CA4 PO; -OMEP40CA97 PO; -VITA50005 PO
[2020-11-02 16:41] LABS: ALBUMIN 3.5 GM/DL (3.2-5.2); ALT/SGPT 35 U/L (12-78); BILIRUBIN,TOTAL 0.5 MG/DL (0.2-1.0); BLOOD UREA NITROGEN 8 MG/DL (7-18); CALCIUM LEVEL 9.3 MG/DL (8.8-10.2); CARBON DIOXIDE LEVEL 29 MEQ/L (21-32); CHLORIDE LEVEL 105 MEQ/L (98-107); CREATININE FOR GFR 0.76 MG/DL (0.55-1.30); GLOMERULAR FILTRATION RATE > 60.0 (>45); GLUCOSE, FASTING 79 MG/DL (70-100); SODIUM LEVEL 137 MEQ/L (136-145); TOTAL 25(OH) VITAMIN D 40.6 NG/ML (30.0-100.0)
[2020-11-02 19:58] LABS: HEMOGLOBIN A1c 5.8 %
== END ==
LOC: M SFHCPLAZ 14:04
PROVIDERS: ATTEND Nurse Practitioner Adult Health
DX: I50.30 Unspecified diastolic (congestive) heart failure (principal); R73.01 Impaired fasting glucose; E55.9 Vitamin D deficiency, unspecified; E03.9 Hypothyroidism, unspecified
CPT/HCPCS: 36415; 80053; 82306; 83036; 84443; G0463

== ENCOUNTER → 2020-12-17 | Outpatient (CLI) | payer MEDICARE, MEDICAID ==
[~2020-12-17] MED LIST changes: +GABA-1171 PO
[2020-12-17 16:07] LABS: PLATELET COUNT, AUTOMATED 255 10^3/uL (150-450)
[2020-12-17 16:18] LABS: INR 0.94; PROTHROMBIN TIME 12.9 SECONDS (12.7-14.5)
[2020-12-17 16:19] LABS: PARTIAL THROMBOPLASTIN TIME 37.8 SECONDS (25.9-37.0)
== END ==
LOC: M WUC 14:16
PROVIDERS: ATTEND Physician Assistant
DX: M51.37 Other intervertebral disc degeneration, lumbosacral region (principal)

== ENCOUNTER → 2020-12-17 | Outpatient (CLI) | payer MEDICARE, MEDICAID ==
[~2020-12-17] MED LIST changes: +ATOR80TA59; +CLOP75TA2; +METO1TAB87
[2020-12-17 16:09] LABS: BASO # 0.1 10^3/uL (0.0-0.2); BASO % 1.4 % (0.0-1.0); EOS # 0.3 10^3/uL (0.0-0.5); EOS % 3.4 % (0.0-3.0); HEMOGLOBIN 15.5 g/dl (12.0-15.5); LYMPH # 2.4 10^3/uL (1.5-5.0); LYMPH % 30.6 % (24.0-44.0); MEAN CORPUSCULAR HEMOGLOBIN 30.5 pg (27.0-33.0); MEAN CORPUSCULAR HGB CONC 32.3 g/dl (32.0-36.5); MEAN CORPUSCULAR VOLUME 94.5 fl (80.0-96.0); MONO # 0.8 10^3/uL (0.0-0.8); MONO % 10.4 % (2.0-8.0); NEUTROPHILS # 4.1 10^3/uL (1.5-8.5); NEUTROPHILS % 53.6 % (36.0-66.0); PLATELET COUNT, AUTOMATED 251 10^3/uL (150-450); RED BLOOD COUNT 5.08 10^6/uL (4.00-5.40); WHITE BLOOD COUNT 7.7 10^3/uL (4.0-10.0)
[2020-12-17 16:29] LABS: ALBUMIN 3.7 GM/DL (3.2-5.2); ALT/SGPT 36 U/L (12-78); BILIRUBIN,TOTAL 0.5 MG/DL (0.2-1.0); BLOOD UREA NITROGEN 9 MG/DL (7-18); CALCIUM LEVEL 9.5 MG/DL (8.8-10.2); CARBON DIOXIDE LEVEL 29 MEQ/L (21-32); CHLORIDE LEVEL 102 MEQ/L (98-107); CREATININE FOR GFR 0.76 MG/DL (0.55-1.30); GLOMERULAR FILTRATION RATE > 60.0 (>45); GLUCOSE, FASTING 92 MG/DL (70-100); POTASSIUM SERUM 4.4 MEQ/L (3.5-5.1); SODIUM LEVEL 139 MEQ/L (136-145)
== END ==
LOC: M WUC 14:22
PROVIDERS: ATTEND Internal Medicine Hematology & Oncology
DX: C50.919 Malignant neoplasm of unspecified site of unspecified female breast (principal); M51.37 Other intervertebral disc degeneration, lumbosacral region; Z79.82 Long term (current) use of aspirin; E03.9 Hypothyroidism, unspecified

== ENCOUNTER 2021-04-25 03:19 | Emergency (ER) | payer MEDICARE, MEDICAID ==
[~2021-04-25] VITALS: Ht 165.1 cm; Wt 117.1 kg
[~2021-04-25 03:19] MED LIST changes: -ATOR80TA59; -CLOP75TA2; -METO1TAB87
--- OUTSIDE RECORDS SUMMARY | 2021-04-25 03:30 | CCD | Continuity of Care Document ---
Author Author Magdalena MOHAN PADamasoC Organization Unknown Address [address] [place] [address] Phone [phone] Care Team Providers Care Technology Lab Teacher Name Role Phone Bina Ferrell MARLEY AUTM [phone] Problems Description No Information Available Social History Type Date Description Comments Sex Unknown ETOH Use Denies alcohol use Tobacco Use Start: Unknown Patient is a current smoker, smo kes every day 1/2 ppd Allergies and adverse reactions Active Allergies Criticality Reaction | Severity Comments Date Naproxen Unable to assess criticality 03/08/2016 Penicillin Unable to assess criticality 03/08/2016 Medications Active Medications SIG Qnty Indications Ordering Provide r Date Tizanidine HCL 2mg Tablets Take 1-2 Tablets By Mouth Three Times A Day Maximum Daily Dose = 6 Tablets 90tabs Roel Wells MD 12/12/2017 Oxycodone HCL 5mg Tablets Take 1 Tablet By Mouth Three Times A Day as Needed For Pain Maximum Daily Dose 3 Tablets Unknown Clotrimazole 1% Cream Apply Under Left Arm After Gentle Cleansing Pat Area Dry 2 Times A Day X 14 Days Unknown Lidocaine HCL 3% Cream Apply Topically A Small Amount To Painful Area Over Tailbone Three Times A Day Unknown Ranitidine HCL 150mg Tablets Take One Tablet By Mouth Once A Day AT Bedtime Unknown Fluconazole 100mg Tablets Take 1 Tablet By Mouth Daily For 3 Days Unknown 0 Prednisone 10mg Tablets Take 4 Tabs.By Mouth Once Daily X 3 Days 3/Day X 3 Days 2/Day X 3 Days 1/Day X 3 Days as Directed Unknown Doxycycline Monohydrate 100mg Caps ules Take One Capsule By Mouth Twice A Day For 10 Days Unknown Levothyroxine Sodium 100mcg Tablet s Take 1 Tablet By Mouth Once A Day In The Morning On An Empty Stomach Unknown Morphine Sulfate ER 15mg Tablets E R Take 1 Tablet By Mouth Every 8 Hours Maximum Daily Dose 3 Tablets Unknown Sucralfate 1gm Tablets Take One Tablet By Mouth Four Times A Day as Needed On An Empty Stomach Unknown Vitamin D (Ergocalciferol) 1.25mg (47880 Ut) Capsules Take 1 Capsule By Mouth Weekly Unknown Duloxetine HCL 60mg Caps Bina Weeks ANP Omeprazole 10mg Capsules DR Unknown Duloxetine HCL 20mg Caps DR Barreto 1 by mouth once a day Unknown Percocet 2.5-325mg Tablets 1 -2 by mouth every 4-6 hours as needed pain Unknown 0 Anastrozole 1mg Tablets every day Unknown Levothyroxine Sodium 1 by mouth every day Unkno wn Immunizations Description No Information Available Vital Signs Date Vital Result Comment 12/19/2019 2:10pm Body Temperature 97.5 F Height 65 inches 5'5" Weight 256.00 lb BMI (Body Mass Index) 42.6 kg/m2 01/23/2019 3:22pm Height 65 inches 5'5" Weight 250.00 lb BMI (Body Mass Index) 41.6 kg/m2 Results Test Acquired Date Facility Test Result H/L Range Note Laboratory test finding 01/20/2021 In House Covid Rapid Testing NEGATIVE Partial Thromboplastin Time 12/17/2020 [facility] [address] [place] [address] (315)- - Prothrombin Time 12.9 seconds Normal 12.7-14.5 Inr 0.94 Normal 1 Partial Thromboplastin Time 37.8 seconds Normal 25.9-37.0 Laboratory test finding [facility] [address] [place] [address] (315)- - Platelet Count, Automated 255 10 Normal 150-450 Partial Thromboplastin Time <pending> CBC With Differential 12/17/2020 [facility] [address] [place] [address] (497)- - White Blood Count 7.7 10 Normal 4.0-10.0 Red Blood Count 5.08 10 Normal 4.00-5.40 Hemoglobin 15.5 g/dL Normal 12.0-15.5 Hematocrit 48.0 % High 36.0-47.0 Mean Corpuscular Volume 94.5 fl Normal 80.0-96.0 Mean Corpuscular Hemoglobin 30.5 pg Normal 27.0-33.0 Mean Corpuscular HGB Conc 32.3 g/dL Normal 32.0-36.5 Red Cell Distribution Width 12.6 % Normal 11.5-14.5 Platelet Count, Automated 251 10 Normal 150-450 Neutrophils % 53.6 % Normal 36.0-66.0 Lymph % 30.6 % Normal 24.0-44.0 [place] % 10.4 % High 2.0-8.0 Eos % 3.4 % High 0.0-3.0 Baso % 1.4 % High 0.0-1.0 Immature Granulocyte % 0.6 % Normal 0-3.0 Nucleated Red Blood Cell % 0.0 % Normal 0-0 Neutrophils # 4.1 10 Normal 1.5-8.5 Lymph # 2.4 10 Normal 1.5-5.0 [place] # 0.8 10 Normal 0.0-0.8 Eos # 0.3 10 Normal 0.0-0.5 Baso # 0.1 10 Normal 0.0-0.2 Comprehensive Metabolic Profil 12/17/2020 [facility] [address] [place] [address] [phone])- - Glucose, Fasting 92 mg/dL Normal 70-100 Blood Urea Nitrogen 9 mg/dL Normal 7-18 Creatinine For GFR 0.76 mg/dL Normal 0.55-1.30 Glomerular Filtration Rate > 60.0 Normal >45 2 Sodium Level 139 mEq/L Normal 136-145 Potassium Serum 4.4 mEq/L Normal 3.5-5.1 Chloride Level 102 mEq/L Normal 98-107 Carbon Dioxide Level 29 mEq/L Normal 21-32 Anion Gap 8 mEq/L Normal 8-16 Calcium Level 9.5 mg/dL Normal 8.8-10.2 Ast/Sgot 32 U/L Normal 7-37 Alt/SGPT 36 U/L Normal 12-78 Alkaline Phosphatase 81 U/L Normal 45-117 Bilirubin,Total 0.5 mg/dL Normal 0.2-1.0 Total Protein 7.0 GM/DL Normal 6.4-8.2 Albumin 3.7 GM/DL Normal 3.2-5.2 Albumin/Globulin Ratio 1.1 Low 1.2-2.2 1 THERAPUTIC HUMAN INR VALUES INDICATIONS NORMAL RANGES PROPHYLAXIS/TREATMENT OF: VENOUS THROMBOSIS 2.0-3.0 PULMONARY EMBOLISM 2.0-3.0 PREVENTION OF SYSTEMIC EMBOLISM FROM: TISSUE HEART VALVES 2.0-3.0 ACUTE MYOCARDIAL INFARCTION 2.0-3.0 VALVULAR HEART DISEASE 2.0-3.0 ATRIAL FIBRILLATION 2.0-3.0 MECHANICAL VALVES(HIGH RISK) 2.5-3.5 RECURRENT MYOCARDIAL INFARCTION 2.5-3.5 2 Units are mL/min/1.73 m2 Chronic Kidney Disease Staging per NKF: Stage I & II GFR >=60 Normal to Mildly Decreased Stage III GFR 30-59 Moderately Decreased Stage IV GFR 15-29 Severely Decreased Stage V GFR <15 Very Little GFR Left ESRD GFR <15 on DATABASES SOFTWARE CONSULTANT Procedures Date Code Description Status 02/11/2021 10961 Office/Outpatient Established Lo w MDM 20-29 Min Completed 02/01/2021 42938 Phone Evaluation/Management By Yvon linares 5-10 Mins Completed 02/01/2021 10928 Office/Outpatient Established SF MDM 10-19 Min Completed 01/25/2021 41131 Epidurography Radiological Super vision & Interpretation Completed 01/25/2021 84270 NJX Aa&/STRD TFRML Epi Lumbar/Sa cral 1 Level Completed 01/25/2021 77114 NJX Aa&/STRD TFRML Epi Lumbar/Sa cral 1 Level Completed 10/22/2020 02344 Office/Outpatient Established Lo w MDM 20-29 Min Completed 10/22/2020 37114 X-Ray Spine Lumbosacral Complete Inc Bending Views Min Of 6 Completed Medical Devices Description No Information Available Encounters Type Date Location Provider Dx Diagnosis Office Visit 02/11/2021 3:45p Vee Mohan PA-C 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, lumbosacral region M53.3 Sacrococcygeal disorders, no t elsewhere classified Office Visit 02/01/2021 11:00a [place] Og[place] MD M6 5.811 Other synovitis and tenosynovitis, right shoulder Office Visit 10/22/2020 2:45p [place] Mohan PA-C M5 3.3 Sacrococcygeal disorders, not elsewhere classified M51.37 Other intervertebral disc de generation, lumbosacral region 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818 Encounter for other preprocedura l examination Lab 01/20/2021 Z20.828 Contact with and (lafleur spected) exposure to other viral communicable diseases Roel Wells MD 01/20/2021 Z20.828 Contact with and (lafleur spected) exposure to other viral communicable diseases Lab 10/22/2020 M53.3 Sacrococcygeal disorders, not el sewhere classified Lauren Mohan PA-C 10/22/2020 M51.37 Other intervertebral disc degene ration, lumbosacral region Lauren Mohan PA-C 10/22/2020 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 LS Created [address] [facility], [address] [place] [address] [phone]
--- OUTSIDE RECORDS SUMMARY | 2021-04-25 03:30 | CCD | Continuity of Care Document ---
Author Author Magdalena OGDEN MD Organization Unknown Address [address] [facility], [address] [place] [address] Phone [phone] Care Team Providers Care Process Control Technician Name Role Phone Bina Ferrell AUTM [phone] Problems Description No Information Available Social History Type Date Description Comments Sex Unknown ETOH Use Denies alcohol use Tobacco Use Start: Unknown Patient is a current smoker, smo kes every day 1/2 ppd Allergies, Adverse Reactions, Alerts Active Allergies Criticality Reaction | Severity Comments [...] Empty Stomach Unknown Vitamin D (Ergocalciferol) 1.25mg (71321 Ut) Capsules Take 1 Capsule By Mouth Weekly Unknown Duloxetine HCL 60mg Caps Bina Weeks ANP Omeprazole 10mg Capsules DR Mi Duloxetine HCL 20mg Caps DR Barreto 1 [...] Rapid Testing NEGATIVE Partial Th[facility]oplast[facility] [address] [place] [address] (315)- - Prothrombin Time 12.9 seconds Normal 12.7-14.5 Inr 0.94 Normal 1 Partial Thromboplastin Time 37.8 seconds Normal 25.9-37.0 Laboratory test finding 12/17/2020 [facility] [address] [place] [address] (315)- - Platelet Count, Automated 255 10 Normal 150-450 Partial Thromboplastin Time <pending> CBC With Differential 12/17/2020 [facility] [address] [place] [address] (110)- - White Blood Count 7.7 10 Normal [...] 36.0-66.0 Lymph % 30.6 % Normal 24.0-44.0 [place] % 10.4 % High 2.0-8.0 Eos % 3.4 % High 0.0-3.0 Baso % 1.4 % High 0.0-1.0 Immature Granulocyte % 0.6 % Normal 0-3.0 Nucleated Red Blood Cell % 0.0 % Normal 0-0 Neutrophils # 4.1 10 Normal 1.5-8.5 Lymph # 2.4 10 Normal 1.5-5.0 [place] # 0.8 10 Normal 0.0-0.8 Eos # 0.3 10 Normal 0.0-0.5 Baso # 0.1 10 Normal 0.0-0.2 Comprehensive Metabolic Profil 12/17/[address] [address] [phone])- - Glucose, Fasting 92 mg/dL Normal 70-100 [...] Little GFR Left ESRD GFR <15 on TRANSACTIONAL ATTORNEY Procedures Date Code Description Status 02/01/2021 27269 Phone Evaluation/Management By Yvon linares 5-10 Mins Completed 02/01/2021 82544 Phone Evaluation/Management By Yvon linares 5-10 Mins Completed 01/25/2021 92763 Epidurography Radiological Super vision & Interpretation Completed 01/25/2021 61043 NJX Aa&/STRD TFRML Epi Lumbar/Sa cral 1 Level Completed 01/25/2021 17223 NJX Aa&/STRD TFRML Epi Lumbar/Sa cral 1 Level Completed 10/22/2020 07951 Office/Outpatient Established Lo w MDM 20-29 Min Completed 10/22/2020 48285 X-Ray Spine Lumbosacral Complete Inc Bending Views Min Of 6 Completed Medical Devices Description No Information Available Encounters Type Date Location Provider Dx Diagnosis Office Visit 02/01/2021 11:00a Vee Ogden MD M6 5.811 Other synovitis and tenosynovitis, right shoulder Office Visit 10/22/2020 2:45p Vee Mohan PA-C M5 3.3 Sacrococcygeal disorders, not elsewhere classified M51.37 Other intervertebral disc de generation, lumbosacral region 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, lumbosacr region Assessments Date Code Description Provider 02/01/2021 M65.811 Other synovitis and tenosynoviti s, [...] lumbosacral Lauren Mohan PA-C Plan of Treatment Future Appointment(s):* 02/11/2021 3:45 pm - Lauren Mohan PA-C at [place] 10/22/2020 - Lauren Mohan PA-C* M53.3 Sacrococcygeal disorders, not elsewhere classified * M51.37 Other intervertebral disc degeneration, lumbosacral region* Follow up: * post darwin inj with [facility] telemed * M47.817 Spondylosis without myelopathy or radiculopathy, lumbosacral Functional Status Description No Information Available Mental Status Description No Information Available Referrals Refer to Dr Reason for Referral Status Appt Date Kaden López MD DARWIN EMANUEL S1 TRANSFORAMINAL ES I WRITTEN AUTH PASSED TO SURGERY. LS Created [address] [facility], [address] [place] [address] [phone]
--- OUTSIDE RECORDS SUMMARY | 2021-04-25 03:30 | CCD | Continuity of Care Document ---
Author Author Magdalena SHAH PA Organization Unknown Address [address] [place] [address] Phone [phone] Care Team Providers Care Rig Builder Name Role Phone Bina Ferrell MARLEY AUTM [phone] Problems Description No Information Available Social History [...] Empty Stomach Unknown Vitamin D (Ergocalciferol) 1.25mg (00194 Ut) Capsules Take 1 Capsule By Mouth [...] Rapid Testing NEGATIVE Partial Thromboplastin Time 12/17/2020 [facility] [address] [place] [address] (315)- - Prothrombin Time 12.9 seconds Normal 12.7-14.5 Inr 0.94 Normal 1 Partial Thromboplastin Time 37.8 seconds Normal 25.9-37.0 Laboratory test finding 12/17/2020 [facility] [address] [place] [address] (315)- - Platelet Count, Automated 255 10 Normal 150-450 Partial Thromboplastin Time <pending> CBC With Differential 12/17/2020 [facility] [address] [place] [address] (315)- - White Blood Count 7.7 10 Normal [...] 36.0-66.0 Lymph % 30.6 % Normal 24.0-44.0 [place] % 10.4 % High 2.0-8.0 Eos % 3.4 % High 0.0-3.0 Baso % 1.4 % High 0.0-1.0 Immature Granulocyte % 0.6 % Normal 0-3.0 Nucleated Red Blood Cell % 0.0 % Normal 0-0 Neutrophils # 4.1 10 Normal 1.5-8.5 Lymph # 2.4 10 Normal 1.5-5.0 [place] # 0.8 10 Normal 0.0-0.8 Eos # 0.3 10 Normal 0.0-0.5 Baso # 0.1 10 Normal 0.0-0.2 Comprehensive Metabolic Profil 12/17/2020 [facility] [address] [place] [address] [phone] - Glucose, Fasting 92 mg/dL Normal 70-100 [...] Little GFR Left ESRD GFR <15 on MANAGER STORE Procedures Date Code Description Status 02/11/2021 85978 Office/Outpatient Established Lo w MDM 20-29 Min Completed 02/01/2021 90562 Phone Evaluation/Management By Yvon linares 5-10 Mins Completed 02/01/2021 84516 Office/Outpatient Established SF MDM 10-19 Min Completed 01/25/2021 72544 Epidurography Radiological Super vision & Interpretation Completed 01/25/2021 30636 NJX Aa&/STRD TFRML Epi Lumbar/Sa cral 1 Level Completed 01/25/2021 08215 NJX Aa&/STRD TFRML Epi Lumbar/Sa cral 1 Level Completed 10/22/2020 08252 Office/Outpatient Established Lo w MDM 20-29 Min Completed 10/22/2020 74013 X-Ray Spine Lumbosacral Complete Inc Bending Views Min Of 6 Completed Medical Devices Description No Information Available Encounters Type Date Location Provider Dx Diagnosis Office Visit 02/11/2021 3:45p Vee Mohan PA-C 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 LS Created [address] [facility], [address] [place] [address] [phone]
--- OUTSIDE RECORDS SUMMARY | 2021-04-25 03:30 | CCD | Continuity of Care Document ---
Author Author Magdalena OGDEN MD Organization Unknown Address [address] [facility], [address] [place] [address] Phone [phone] Care Team Providers Care Customer Engagement Analyst Name Role Phone Bina Ferrell AUTM [phone] Problems Description No Information Available Social History [...] Empty Stomach Unknown Vitamin D (Ergocalciferol) 1.25mg (67343 Ut) Capsules Take 1 Capsule By Mouth [...] Rapid Testing NEGATIVE Partial Thromboplastin [facility] [address] [place] [address] (315)- - Prothrombin Time 12.9 seconds Normal 12.7-14.5 Inr 0.94 Normal 1 Partial Thromboplastin Time 37.8 seconds Normal 25.9-37.0 Laboratory test finding 12/17/2020 [facility] [address] [place] [address] (315)- - Platelet Count, Automated 255 10 Normal 150-450 Partial Thromboplastin Time <pending> CBC With Differential 12/17/2020 [facility] [address] [place] [address] (432)- - White Blood Count 7.7 10 Normal [...] 36.0-66.0 Lymph % 30.6 % Normal 24.0-44.0 [place] % 10.4 % High 2.0-8.0 Eos % 3.4 % High 0.0-3.0 Baso % 1.4 % High 0.0-1.0 Immature Granulocyte % 0.6 % Normal 0-3.0 Nucleated Red Blood Cell % 0.0 % Normal 0-0 Neutrophils # 4.1 10 Normal 1.5-8.5 Lymph # 2.4 10 Normal 1.5-5.0 [place] # 0.8 10 Normal 0.0-0.8 Eos # 0.3 10 Normal 0.0-0.5 Baso # 0.1 10 Normal 0.0-0.2 Comprehensive Metabolic Profil 12/17/[address] [address] [phone] - Glucose, Fasting 92 mg/dL Normal 70-100 [...] Little GFR Left ESRD GFR <15 on PROGRAM DIRECTOR/MORNING SHOW HOST Procedures Date Code Description Status 02/01/2021 32521 Phone Evaluation/Management By Yvon linares 5-10 Mins Completed 02/01/2021 73600 Office/Outpatient Established SF MDM 10-19 Min Completed 01/25/2021 79445 Epidurography Radiological Super vision & Interpretation Completed 01/25/2021 77834 NJX Aa&/STRD TFRML Epi Lumbar/Sa cral 1 Level Completed 01/25/2021 59190 NJX Aa&/STRD TFRML Epi Lumbar/Sa cral 1 Level Completed 10/22/2020 58483 Office/Outpatient Established Lo w MDM 20-29 Min Completed 10/22/2020 13979 X-Ray Spine Lumbosacral Complete Inc Bending Views [...] 3:45 pm - Lauren Mohan PA-C at [place] Functional Status Description No Information Available Mental Status Description No Information Available Referrals Refer to Reason for Referral Status Appt Date Kaden López MD DARWIN EMANUEL S1 TRANSFORAMINAL ES I WRITTEN AUTH PASSED TO SURGERY. LS Created [address] [facility], [address] [place] [address] [phone]
--- OUTSIDE RECORDS SUMMARY | 2021-04-25 03:30 | CCD | Continuity of Care Document ---
Author Author Magdalena MOHAN [facility]ADamas[facility] Organization Unknown Address [address] [place] [address] Phone [phone] Care Team Providers Care Project Structural Engineer Name Role Phone Bina Ferrell MARLEY AUTM [phone] Problems Description No Information Available Social History [...] Empty Stomach Unknown Vitamin D (Ergocalciferol) 1.25mg (53994 Ut) Capsules Take 1 Capsule By Mouth [...] Rapid Testing NEGATIVE Partial Thromboplastin Time 12/17/2020 [facility] [address] [place] [address] (315)- - Prothrombin Time 12.9 seconds Normal 12.7-14.5 Inr 0.94 Normal 1 Partial Thromboplastin Time 37.8 seconds Normal 25.9-37.0 Laboratory test finding [facility] [address] [place] [address] (315)- - Platelet Count, Automated 255 10 Normal 150-450 Partial Thromboplastin Time <pending> CBC With Differential 12/17/2020 [facility] [address] [place] [address] (052)- - White Blood Count 7.7 10 Normal [...] 36.0-66.0 Lymph % 30.6 % Normal 24.0-44.0 [place] % 10.4 % High 2.0-8.0 Eos % 3.4 % High 0.0-3.0 Baso % 1.4 % High 0.0-1.0 Immature Granulocyte % 0.6 % Normal 0-3.0 Nucleated Red Blood Cell % 0.0 % Normal 0-0 Neutrophils # 4.1 10 Normal 1.5-8.5 Lymph # 2.4 10 Normal 1.5-5.0 [place] # 0.8 10 Normal 0.0-0.8 Eos # 0.3 10 Normal 0.0-0.5 Baso # 0.1 10 Normal 0.0-0.2 Comprehensive Metabolic Profil 12/17/2020 [facility] [address] [place] [address] (507)- - Glucose, Fasting 92 mg/dL Normal 70-100 [...] Little GFR Left ESRD GFR <15 on MAINTENANCE OPERATOR Procedures Date Code Description Status 02/11/2021 99439 Phone Evaluation/Management By Yvon linares 5-10 Mins Completed 02/01/2021 20496 Phone Evaluation/Management By Yvon linares 5-10 Mins Completed 02/01/2021 88318 Office/Outpatient Established SF MDM 10-19 Min Completed 01/25/2021 86085 Epidurography Radiological Super vision & Interpretation Completed 01/25/2021 84471 NJX Aa&/STRD TFRML Epi Lumbar/Sa cral 1 Level Completed 01/25/2021 90902 NJX Aa&/STRD TFRML Epi Lumbar/Sa cral 1 Level Completed 10/22/2020 75274 Office/Outpatient Established Lo w MDM 20-29 Min Completed 10/22/2020 94192 X-Ray Spine Lumbosacral Complete Inc Bending Views Min Of 6 Completed Medical Devices Description No Information Available Encounters Type Date Location Provider Dx Diagnosis Office Visit 02/11/2021 3:45p [place] Lauren Mohan PA-C 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 LS Created [address] [facility], [address] [place] [address] [phone]
--- OUTSIDE RECORDS SUMMARY | 2021-04-25 03:31 | CCD ---
Author Author [facility] Organization [facility] Address Unknown Phone Unavailable Care Team Providers Care Production Team Manager Name Role Phone Thais Mohan Unavailable Unavailable Thais Mohan Unavailable Unavailable Thais Mohan PA Unavailable Unavailable Thais Mohan PA Unavailable Unavailable Thais Mohan PA Unavailable Unavailable Thais Mohan PA Unavailable Unavailable Thais Mohan PA Unavailable Unavailable Thais Mohan PA Unavailable Unavailable Thais Mohan PA Unavailable Unavailable Thais Mohan PA Unavailable Unavailable Thais Mohan PA Unavailable Unavailable Thais Mohan PA Unavailable Unavailable Thais Mohan PA Unavailable Unavailable Thais Mohan PA Unavailable Unavailable Thais Moahn PA Unavailable Unavailable Thais Mohan PA Unavailable Unavailable Thais Mohan PA Unavailable Unavailable Thais Mohan PA Unavailable Unavailable Thais Mohan PA Unavailable Unavailable Thais Mohan PA Unavailable Unavailable Thais Mohan PA Unavailable Unavailable Thais Mohan PA Unavailable Unavailable Thais Mohan Unavailable Unavailable Thais Mohan Unavailable Unavailable Thais Mohan PA Unavailable Unavailable Thais Mohan PA Unavailable Unavailable Thais Mohan PA Unavailable Unavailable Thais Mohan PA Unavailable Unavailable Thais Mohan Unavailable Unavailable Jesus Ogden MD Unavailable Unavailable Jesus Ogden MD Unavailable Unavailable VaneenenaamJesus MD Unavailable Unavailable Vaneenenaam, Jesus Ewing MD Unavailable Unavailable VaneenenaamJesus MD Unavailable Unavailable Vaneenenaam, Jesus Ewing MD Unavailable Unavailable Vaneenenaam, Jesus Ewing MD Unavailable Unavailable Vaneenenaam, Jesus Ewing MD Unavailable Unavailable Vaneenenaam, Jesus Ewing MD Unavailable Unavailable Vaneenenaam, Jesus Ewing MD Unavailable Unavailable Vaneenenaam, Jesus Ewing MD Unavailable Unavailable Vaneenenaam, Jesus Ewing MD Unavailable Unavailable Vaneenenaam, Jesus Ewing MD Unavailable Unavailable Vaneenenaam, Jesus Ewing MD Unavailable Unavailable Vaneenenaam, Jesus Ewing MD Unavailable Unavailable Vaneenraquelam, Jesus Ewing MD Unavailable Unavailable Vaneenenaam, Jesus Ewing MD Unavailable Unavailable Vaneenenaam, Jesus Ewing MD Unavailable Unavailable Vaneenenaam, Jesus Ewing MD Unavailable Unavailable Vaneenenaam, Jesus Ewing MD Unavailable Unavailable Vaneenenaam, Jesus Ewing MD Unavailable Unavailable Vanalekam, Jesus Ewing MD Unavailable Unavailable Vaneenraquelam, Jesus Ewing MD Unavailable Unavailable Vaneenenaam, Jesus Ewing MD Unavailable Unavailable Vaneenenaam, Jesus Ewing MD Unavailable Unavailable Vaneenenaam, Jesus Ewing MD Unavailable Unavailable Vaneenenaam, Jesus Ewing MD Unavailable Unavailable Vaneenraquelam, Jesus Ewing MD Unavailable Unavailable Vaneenraquelam, Jesus Ewing MD Unavailable Unavailable Vanalekam, Jesus Ewing MD Unavailable Unavailable Vaneenraquelam, Jesus Ewing MD Unavailable Unavailable Vanalekam, Jesus Ewing MD Unavailable Unavailable Vaneenraquelam, Jesus Ewing MD Unavailable Unavailable VaneenraquelamJesus MD Unavailable Unavailable Vanalekam, Jesus Ewing MD Unavailable Unavailable VanJesus curry MD Unavailable Unavailable Vanalekam, Jesus Ewing MD Unavailable Unavailable Vanalekam, Jesus Ewing MD Unavailable Unavailable Vaneenraquelam, Jesus Ewing MD Unavailable Unavailable VaneenraquelamJesus MD Unavailable Unavailable VanJesus curry MD Unavailable Unavailable VanJesus curry MD Unavailable Unavailable VanJesus curry MD Unavailable Unavailable Vanalekam, Jesus Ewing MD Unavailable Unavailable VanalekamJesus MD Unavailable Unavailable Vaneenenaam, Jesus Ewing MD Unavailable Unavailable VaneenraquelamJesus MD Unavailable Unavailable ALYSSA M SUGAR PA Unavailable Unavailable ALYSSA, M SUGAR PA Unavailable Unavailable ALYSSA, M SUGAR PA Unavailable Unavailable ALYSSA, M SUGAR PA Unavailable Unavailable ALYSSA, M SUGAR PA Unavailable Unavailable ALYSSA, M SUGAR PA Unavailable Unavailable ALYSSA, M SUGAR PA Unavailable Unavailable ALYSSA, M SUGAR PA Unavailable Unavailable ALYSSA, M SUGAR PA Unavailable Unavailable ALYSSA, M SUGAR PA Unavailable Unavailable ALYSSA, M SUGAR PA Unavailable Unavailable ALYSSA, M SUGAR PA Unavailable Unavailable ALYSSA, M SUGAR PA Unavailable Unavailable ALYSSA, M SUGAR PA Unavailable Unavailable ALYSSA, M SUGAR PA Unavailable Unavailable ALYSSA, M SUGAR PA Unavailable Unavailable ALYSSA, M SUGAR PA Unavailable Unavailable ALYSSA, M SUGAR PA Unavailable Unavailable ALYSSA, M SUGAR PA Unavailable Unavailable ALYSSA, M SUGAR PA Unavailable Unavailable ALYSSA, M SUGAR PA Unavailable Unavailable ALYSSA, M SUGAR PA Unavailable Unavailable ALYSSA, M SUGAR PA Unavailable Unavailable ALYSSA, M SUGAR PA Unavailable Unavailable Re-disclosure Warning The records that you are about to access may contain information from federally-assisted alcohol or drug abuse programs. If such information is present, then the following federally mandated warning applies: This information has been disclosed to you from records protected by federal confidentiality rules (42 CFR part 2). The federal rules prohibit you from making any further disclosure of this information unless further disclosure is expressly permitted by the written consent of the person to whom it pertains or as otherwise permitted by 42 CFR part 2. A general authorization for the release of medical or other information is NOT sufficient for this purpose. The Federal rules restrict any use of the information to criminally investigate or prosecute any alcohol or drug abuse patient.The records that you are about to access may contain highly sensitive health information, the redisclosure of which is protected by Article 27-F of the [facility] Public Health law. If you continue you may have access to information: Regarding HIV / AIDS; Provided by facilities licensed or operated by the [facility] Office of Mental Health; or Provided by the [facility] Office for People With Developmental Disabilities. If such information is present, then the following [facility] mandated warning applies: This information has been disclosed to you from confidential records which are protected by state law. State law prohibits you from making any further disclosure of this information without the specific written consent of the person to whom it pertains, or as otherwise permitted by law. Any unauthorized further disclosure in violation of state law may result in a fine or alf sentence or both. A general authorization for the release of medical or other information is NOT sufficient authorization for further disc losure. Family History Family Member Name Family Member Gender Family Member Status Date o f Status Description Data Source(s) Unknown Unknown Problem [facility] ([facility]) Unknown Female Problem [facility] ([facility]) Encounters Encounter Providers Location Date Indications Data Source(s ) OFFICE OUTPATIENT VISIT 15 MINUTES Attender: Lauren HENDERSON Physical Therapy 02/11/2021 03:45:00 PM EDT [facility] ([facility]) Office Visit Attender: Jesus Ogden MD Physical Therap y 02/01/2021 11:00:00 AM EDT [facility] ([facility]) [place] [address] [facility] [place] [address] 01/01/2021 12:00:00 AM EDT eCW1 ([facility]) [place] [address] [place] [place] [address] 12/17/2020 12:00:00 AM EDT eCW1 ([facility]) [place] [address] [place] [place] [address] 12/08/2020 12:00:00 AM EDT eCW1 ([facility]) [place] [address] [place] [address] 11/02/2020 12:00:00 AM EDT eCW1 ([facility]) [place] [address] [address] 10/28/2020 12:00:00 AM EDT eCW1 ([facility]) [place] [address] [place] [address] 10/27/2020 12:00:00 AM EDT eCW1 ([facility]) OFFICE OUTPATIENT VISIT 15 MINUTES Attender: Lauren HENDERSON Physical Therapy 10/22/2020 02:45:00 PM EDT [facility] ([facility]) Office Visit Attender: SUGAR HENDERSON Physical Therapy 06/2020 04:00:00 PM EST [facility] ([facility]) [place] [address] [place] [address] 07/06/2020 12:00:00 AM EST eCW1 ([facility]) OFFICE OUTPATIENT VISIT 15 MINUTES Attender: Jesus sanon MD Physical Therapy 05/01/2020 01:00:00 PM EST [facility] ([facility]) OFFICE OUTPATIENT VISIT 15 MINUTES Attender: SUGAR HENDERSON Ph ysical Therapy 04/08/2020 02:30:00 PM EST [facility] ([facility]) Immunizations Vaccine Date Status Description Data Source(s) COVID-19 dose #2 given elsewhere Unspecified 08/24/2020 11:0 9:00 AM EDT completed eCW1 ([facility]) COVID-19 dose #2 given elsewhere Unspecified 08/24/2020 11:0 9:00 AM EDT completed eCW1 ([facility]) COVID-19 dose #2 given elsewhere Unspecified 08/24/2020 11:0 9:00 AM EDT completed eCW1 ([facility]) COVID-19 dose #2 given elsewhere Unspecified 08/24/2020 11:0 9:00 AM EDT completed eCW1 ([facility]) COVID-19 VACCINE Moderna 08/24/2020 12:00:00 AM EDT completed [facility] Vaccine Series Complete: YESThis Data wa s Submitted to [facility] Via [facility]. COVID-19 VACCINE, MRNA-1273, LNP-S (MODERNA)/PF 08/24/2020 1 2:00:00 AM EDT completed [facility] COVID-19 dose #1 given elsewhere Unspecified 07/24/2020 11:0 8:00 AM EST completed eCW1 ([facility]) COVID-19 dose #1 given elsewhere Unspecified 07/24/2020 11:0 8:00 AM EST completed eCW1 ([facility]) COVID-19 dose #1 given elsewhere Unspecified 07/24/2020 11:0 8:00 AM EST completed eCW1 ([facility]) COVID-19 dose #1 given elsewhere Unspecified 07/24/2020 11:0 8:00 AM EST completed eCW1 ([facility]) COVID-19 VACCINE Moderna 07/24/2020 12:00:00 AM EST completed [facility] Vaccine Series Complete: NOThis Data was Submitted to [facility] Via [employer]. COVID-19 VACCINE, MRNA-1273, LNP-S (MODERNA)/PF 07/24/2020 1 2:00:00 AM EST completed [facility] Medications Medication Brand Name Start Date Product Form Dose Route Admi nistrative Instructions Pharmacy Instructions Status Indications Reaction Description Data Source(s) 60 mg 04/19/2021 12:00:00 AM EST capsule,delayed release (DR/EC) 60 TAKE ONE CAPSULE BY MOUTH TWICE A DAY TAKE ONE CAPSULE BY MOUTH TWICE A DAY SOLD: 04/21/2021 [facility] 5 mg 04/15/2021 12:00:00 AM EST tablet 90 TAKE 1 TABLET BY MOUTH 3 TIMES A DAY NEEDED FOR PAIN MAX DAILY DOSE = 3 TABLETS TAKE 1 TABLET BY MOUTH 3 TIMES A DAY NEEDED FOR PAIN MAX DAILY DOSE = 3 TABLETS SOLD: 04/16/2021 [facility] 15 mg 04/14/2021 12:00:00 AM EST tablet extended release 90 TAKE 1 TABLET BY MOUTH EVERY 8 HOURS MAXIMUM DAILY DOSE = 3 TABLETS TAKE 1 TABLET BY MOUTH EVERY 8 HOURS MAXIMUM DAILY DOSE = 3 TABLETS SOLD: 04/16/2021 [facility] 100 mcg 04/13/2021 12:00:00 AM EST tablet 30 TAKE ONE TABLET BY MOUTH EVERY MORNING TAKE ONE TABLET BY MOUTH EVERY MORNING SOLD: 04/14/2021 [facility] tizanidine 2 MG Oral Tablet TIZANIDINE HCL 04/09/2021 12:00:00 AM EST tablet 90 TAKE ONE TO TWO TABLETS BY MOUTH THREE TIMES A DAY LUCY E ONE TO TWO TABLETS BY MOUTH THREE TIMES A DAY SOLD: 04/11/2021 [facility] 5 mg 03/15/2021 12:00:00 AM EDT tablet 90 TAKE ONE TABLET BY MOUTH THREE TIMES A DAY NEEDED FOR PAIN MAXIMUM DAILY DOSE = 3 TABLETS TAKE ONE TABLET BY MOUTH THREE TIMES A DAY NEEDED FOR PAIN MAXIMUM DAILY DOSE = 3 TABLETS SOLD: 03/17/2021 [facility] 15 mg 03/15/2021 12:00:00 AM EDT tablet extended release 90 TAKE ONE TABLET BY MOUTH EVERY 8 HOURS MAXIMUM DAILY DOSE = 3 TABLETS TAKE ONE TABLET BY MOUTH EVERY 8 HOURS MAXIMUM DAILY DOSE = 3 TABLETS SOLD: 03/17/2021 [facility] 100 mg 02/18/2021 12:00:00 AM EDT capsule 60 TAKE ONE CAPSULE BY MOUTH TWICE A DAY TAKE ONE CAPSULE BY MOUTH TWICE A DAY SOLD: 04/21/2021 [facility] 100 mg 02/18/2021 12:00:00 AM EDT capsule 60 TAKE ONE CAPSULE BY MOUTH TWICE A DAY TAKE ONE CAPSULE BY MOUTH TWICE A DAY SOLD: 02/21/2021 [facility] 100 mg 02/18/2021 12:00:00 AM EDT capsule 60 TAKE ONE CAPSULE BY MOUTH TWICE A DAY TAKE ONE CAPSULE BY MOUTH TWICE A DAY SOLD: 03/22/2021 [facility] 5 mg 02/11/2021 12:00:00 AM EDT tablet 90 TAKE 1 TABLET BY MOUTH 3 TIMES A DAY NEEDED FOR PAIN MAX DAILY DOSE = 3 TABLETS TAKE 1 TABLET BY MOUTH 3 TIMES A DAY NEEDED FOR PAIN MAX DAILY DOSE = 3 TABLETS SOLD: 02/13/2021 [facility] 15 mg 02/11/2021 12:00:00 AM EDT tablet extended release 90 TAKE ONE TABLET BY MOUTH EVERY 8 HOURS MAXIMUM DAILY DOSE = 3 TABLETS TAKE ONE TABLET BY MOUTH EVERY 8 HOURS MAXIMUM DAILY DOSE = 3 TABLETS SOLD: 02/13/2021 [facility] 15 mg 01/12/2021 12:00:00 AM EDT tablet extended release 90 TAKE ONE TABLET BY MOUTH EVERY 8 HOURS MAXIMUM DAILY DOSE = 3 TABLETS TAKE ONE TABLET BY MOUTH EVERY 8 HOURS MAXIMUM DAILY DOSE = 3 TABLETS SOLD: 01/14/2021 [facility] 5 mg 01/12/2021 12:00:00 AM EDT tablet 90 TAKE ONE TABLET BY MOUTH THREE TIMES A DAY NEEDED FOR PAIN, MAX OF 3 PER DAY TAKE ONE TABLET BY MOUTH THREE TIMES A DAY NEEDED FOR PAIN, MAX OF 3 PER DAY SOLD: 01/14/2021 [facility] 70 mg 12/24/2020 12:00:00 AM EDT tablet 4 TAKE 1TAB.BY MOUTH WEEKLY 30MIN. BEFORE 1ST FOOD/LIQUID RX OF DAY W/PLAIN WATER TAKE 1TAB.BY MOUTH WEEKLY 30MIN. BEFORE 1ST FOOD/LIQUID RX OF DAY W/PLAIN WATER SOLD: 02/18/2021 [facility] 70 mg 12/24/2020 12:00:00 AM EDT tablet 4 TAKE 1TAB.BY MOUTH WEEKLY 30MIN. BEFORE 1ST FOOD/LIQUID RX OF DAY W/PLAIN WATER TAKE 1TAB.BY MOUTH WEEKLY 30MIN. BEFORE 1ST FOOD/LIQUID RX OF DAY W/PLAIN WATER SOLD: 04/14/2021 [facility] 70 mg 12/24/2020 12:00:00 AM EDT tablet 4 TAKE 1TAB.BY MOUTH WEEKLY 30MIN. BEFORE 1ST FOOD/LIQUID RX OF DAY W/PLAIN WATER TAKE 1TAB.BY MOUTH WEEKLY 30MIN. BEFORE 1ST FOOD/LIQUID RX OF DAY W/PLAIN WATER SOLD: 03/17/2021 [facility] 70 mg 12/24/2020 12:00:00 AM EDT tablet 4 TAKE 1TAB.BY MOUTH WEEKLY 30MIN. BEFORE 1ST FOOD/LIQUID RX OF DAY W/PLAIN WATER TAKE 1TAB.BY MOUTH WEEKLY 30MIN. BEFORE 1ST FOOD/LIQUID RX OF DAY W/PLAIN WATER SOLD: 01/20/2021 [facility] 70 mg 12/24/2020 12:00:00 AM EDT tablet 4 TAKE 1TAB.BY MOUTH WEEKLY 30MIN. BEFORE 1ST FOOD/LIQUID RX OF DAY W/PLAIN WATER TAKE 1TAB.BY MOUTH WEEKLY 30MIN. BEFORE 1ST FOOD/LIQUID RX OF DAY W/PLAIN WATER SOLD: 12/25/2020 [facility] 100 mg 12/18/2020 12:00:00 AM EDT capsule 60 TAKE ONE CAPSULE BY MOUTH TWICE A DAY TAKE ONE CAPSULE BY MOUTH TWICE A DAY SOLD: 12/21/2020 [facility] 100 mg 12/18/2020 12:00:00 AM EDT capsule 60 TAKE ONE CAPSULE BY MOUTH TWICE A DAY TAKE ONE CAPSULE BY MOUTH TWICE A DAY SOLD: 01/20/2021 [facility] 15 mg 12/11/2020 12:00:00 AM EDT tablet extended release 90 TAKE 1 TABLET BY MOUTH EVERY 8 HOURS MAX DAILY DOSE = 3 TABLETS TAKE 1 TABLET BY MOUTH EVERY 8 HOURS MAX DAILY DOSE = 3 TABLETS SOLD: 12/12/2020 [facility] 1,250 mcg (50,000 unit) 12/11/2020 12:00:00 AM EDT capsule 4 TAKE 1 CAPSULE BY MOUTH WEEKLY TAKE 1 CAPSULE BY MOUTH WEEKLY SOLD: 03/24/2021 [facility] 5 mg 12/11/2020 12:00:00 AM EDT tablet 90 TAKE 1 TABLET BY MOUTH 3 TIMES A DAY NEEDED FOR PAIN MAX DAILY DOSE = 3 TABLETS TAKE 1 TABLET BY MOUTH 3 TIMES A DAY NEEDED FOR PAIN MAX DAILY DOSE = 3 TABLETS SOLD: 12/12/2020 [facility] 1,250 mcg (50,000 unit) 12/11/2020 12:00:00 AM EDT capsule 4 TAKE 1 CAPSULE BY MOUTH WEEKLY TAKE 1 CAPSULE BY MOUTH WEEKLY SOLD: 12/12/2020 [facility] 40 mg 12/09/2020 12:00:00 AM EDT capsule,delayed release (DR/EC) 30 TAKE ONE CAPSULE BY MOUTH EVERY DAY TAKE ONE CAPSULE BY MOUTH EVERY DAY SOLD: 12/12/2020 [facility] 40 mg 12/09/2020 12:00:00 AM EDT capsule,delayed release (DR/EC) 30 TAKE ONE CAPSULE BY MOUTH EVERY DAY TAKE ONE CAPSULE BY MOUTH EVERY DAY SOLD: 03/12/2021 [facility] 40 mg 12/09/2020 12:00:00 AM EDT capsule,delayed release (DR/EC) 30 TAKE ONE CAPSULE BY MOUTH EVERY DAY TAKE ONE CAPSULE BY MOUTH EVERY DAY SOLD: 01/11/2021 [facility] 40 mg 12/09/2020 12:00:00 AM EDT capsule,delayed release (DR/EC) 30 TAKE ONE CAPSULE BY MOUTH EVERY DAY TAKE ONE CAPSULE BY MOUTH EVERY DAY SOLD: 04/11/2021 [facility] 40 mg 12/09/2020 12:00:00 AM EDT capsule,delayed release (DR/EC) 30 TAKE ONE CAPSULE BY MOUTH EVERY DAY TAKE ONE CAPSULE BY MOUTH EVERY DAY SOLD: 02/10/2021 [facility] Levofloxacin 500 MG Oral Tablet levoFLOXacin 500 MG levoFLOX acin 500 MG 12/08/2020 12:00:00 AM EDT 1.0 {tablet} active levoFLOXacin 500 MG eCW1 ([facility]) Fluconazole 150 MG Oral Tablet Fluconazole 150 MG 12/08/2020 12:00: 00 AM EDT 1.0 {tablet} active Fluconazole 150 MG eCW1 ([facility]) 1 gram 12/08/2020 12:00:00 AM EDT tablet 120 TAKE ONE TABLET BY MOUTH FOUR TIMES A DAY ON AN EMPTY STOMACH NEEDED TAKE ONE TABLET BY MOUTH FOUR TIMES A DAY ON AN EMPTY STOMACH NEEDED SOLD: 01/07/2021 [facility] 150 mg 12/08/2020 12:00:00 AM EDT tablet 2 TAKE 1 TABLET BY MOUTH TODAY AND REPEAT 1 DOSE IN 7 DAYS DIRECTED TAKE 1 TABLET BY MOUTH TODAY AND REPEAT 1 DOSE IN 7 DAYS DIRECTED SOLD: 12/08/2020 [facility] Levofloxacin 500 MG Oral Tablet levoFLOXacin 500 MG levoFLOX acin 500 MG 12/08/2020 12:00:00 AM EDT 1.0 {tablet} active levoFLOXacin 500 MG eCW1 ([facility]) Fluconazole 150 MG Oral Tablet Fluconazole 150 MG 12/08/2020 12:00: 00 AM EDT 1.0 {tablet} active Fluconazole 150 MG eCW1 ([facility]) 1 gram 12/08/2020 12:00:00 AM EDT tablet 120 TAKE ONE TABLET BY MOUTH FOUR TIMES A DAY ON AN EMPTY STOMACH NEEDED TAKE ONE TABLET BY MOUTH FOUR TIMES A DAY ON AN EMPTY STOMACH NEEDED SOLD: 12/08/2020 [facility] Levofloxacin 500 MG Oral Tablet levoFLOXacin 500 MG levoFLOX acin 500 MG 12/08/2020 12:00:00 AM EDT 1.0 {tablet} active levoFLOXacin 500 MG eCW1 ([facility]) 500 mg 12/08/2020 12:00:00 AM EDT tablet 7 TAKE ONE TABLET BY MOUTH EVERY DAY FOR 7 DAYS TAKE ONE TABLET BY MOUTH EVERY DAY FOR 7 DAYS SOLD: 12/08/2020 [facility] Fluconazole 150 MG Oral Tablet Fluconazole 150 MG 12/08/2020 12:00: 00 AM EDT 1.0 {tablet} active Fluconazole 150 MG eCW1 ([facility]) 100 mcg 11/16/2020 12:00:00 AM EDT tablet 30 TAKE ONE TABLET BY MOUTH EVERY MORNING TAKE ONE TABLET BY MOUTH EVERY MORNING SOLD: 01/20/2021 [facility] 100 mcg 11/16/2020 12:00:00 AM EDT tablet 30 TAKE ONE TABLET BY MOUTH EVERY MORNING TAKE ONE TABLET BY MOUTH EVERY MORNING SOLD: 02/18/2021 [facility] 100 mcg 11/16/2020 12:00:00 AM EDT tablet 30 TAKE ONE TABLET BY MOUTH EVERY MORNING TAKE ONE TABLET BY MOUTH EVERY MORNING SOLD: 11/18/2020 [facility] 100 mcg 11/16/2020 12:00:00 AM EDT tablet 30 TAKE ONE TABLET BY MOUTH EVERY MORNING TAKE ONE TABLET BY MOUTH EVERY MORNING SOLD: 03/17/2021 [facility] 100 mcg 11/16/2020 12:00:00 AM EDT tablet 30 TAKE ONE TABLET BY MOUTH EVERY MORNING TAKE ONE TABLET BY MOUTH EVERY MORNING SOLD: 12/18/2020 [facility] 15 mg 11/12/2020 12:00:00 AM EDT tablet extended release 90 TAKE ONE TABLET BY MOUTH EVERY 8 HOURS MAXIMUM DAILY DOSE = 3 TABLETS TAKE ONE TABLET BY MOUTH EVERY 8 HOURS MAXIMUM DAILY DOSE = 3 TABLETS SOLD: 11/13/2020 [facility] 5 mg 11/12/2020 12:00:00 AM EDT tablet 90 TAKE ONE TABLET BY MOUTH THREE TIMES A DAY NEEDED FOR PAIN MAXIMUM DAILY DOSE = 3 TABLETS TAKE ONE TABLET BY MOUTH THREE TIMES A DAY NEEDED FOR PAIN MAXIMUM DAILY DOSE = 3 TABLETS SOLD: 11/13/2020 [facility] Lactulose 667 MG/ML Oral Solution Lactulose 10 GM/15ML Lactu lose 10 GM/15ML 11/03/2020 12:00:00 AM EDT 15.0 {ml} active Lactulose 10 GM/15ML eCW1 ([facility]) Lactulose 667 MG/ML Oral Solution Lactulose 10 GM/15ML Lactu lose 10 GM/15ML 11/03/2020 12:00:00 AM EDT 15.0 {ml} active Lactulose 10 GM/15ML eCW1 ([facility]) 100 mg 11/03/2020 12:00:00 AM EDT capsule 30 TAKE 1 CAPSULE BY MOUTH BEFORE BEDTIME DIRECTED TAKE 1 CAPSULE BY MOUTH BEFORE BEDTIME DIRECTED GAEL [facility] Lactulose 667 MG/ML Oral Solution Lactulose 10 GM/15ML Lactu lose 10 GM/15ML 11/03/2020 12:00:00 AM EDT 15.0 {ml} active Lactulose 10 GM/15ML eCW1 ([facility]) Lactulose 667 MG/ML Oral Solution Lactulose 10 GM/15ML Lactu lose 10 GM/15ML 11/03/2020 12:00:00 AM EDT 15.0 {ml} active Lactulose 10 GM/15ML eCW1 ([facility]) 100 mg 11/03/2020 12:00:00 AM EDT capsule 30 TAKE 1 CAPSULE BY MOUTH BEFORE BEDTIME DIRECTED TAKE 1 CAPSULE BY MOUTH BEFORE BEDTIME DIRECTED GAEL [facility] 10 gram/15 mL 11/03/2020 12:00:00 AM EDT solution 473 TAKE 15MLS [2 TABLESPOONFULS] BY MOUTH ONCE A DAY NEEDED FOR CONSTIPATION TAKE 15MLS [2 TABLESPOONFULS] BY MOUTH ONCE A DAY NEEDED FOR CONSTIPATION SOLD: 11/04/2020 [facility] gabapentin 100 MG Oral Capsule Gabapentin 100 MG Gabapentin 100 MG 11/02/2020 12:00:00 AM EDT 1.0 {capsule} active G abapentin 100 MG eCW1 ([facility]) gabapentin 100 MG Oral Capsule Gabapentin 100 MG Gabapentin 100 MG 11/02/2020 12:00:00 AM EDT 1.0 {capsule} active G abapentin 100 MG eCW1 ([facility]) gabapentin 100 MG Oral Capsule Gabapentin 100 MG Gabapentin 100 MG 11/02/2020 12:00:00 AM EDT 1.0 {capsule} active G abapentin 100 MG eCW1 ([facility]) gabapentin 100 MG Oral Capsule Gabapentin 100 MG Gabapentin 100 MG 11/02/2020 12:00:00 AM EDT 1.0 {capsule} active G abapentin 100 MG eCW1 ([facility]) 60 mg 10/28/2020 12:00:00 AM EDT capsule,delayed release (DR/EC) 60 TAKE ONE CAPSULE BY MOUTH TWICE A DAY TAKE ONE CAPSULE BY MOUTH TWICE A DAY SOLD: 12/25/2020 [facility] 60 mg 10/28/2020 12:00:00 AM EDT capsule,delayed release (DR/EC) 60 TAKE ONE CAPSULE BY MOUTH TWICE A DAY TAKE ONE CAPSULE BY MOUTH TWICE A DAY SOLD: 03/22/2021 [facility] 60 mg 10/28/2020 12:00:00 AM EDT capsule,delayed release (DR/EC) 60 TAKE ONE CAPSULE BY MOUTH TWICE A DAY TAKE ONE CAPSULE BY MOUTH TWICE A DAY SOLD: 11/25/2020 [facility] 60 mg 10/28/2020 12:00:00 AM EDT capsule,delayed release (DR/EC) 60 TAKE ONE CAPSULE BY MOUTH TWICE A DAY TAKE ONE CAPSULE BY MOUTH TWICE A DAY SOLD: 02/21/2021 [facility] 60 mg 10/28/2020 12:00:00 AM EDT capsule,delayed release (DR/EC) 60 TAKE ONE CAPSULE BY MOUTH TWICE A DAY TAKE ONE CAPSULE BY MOUTH TWICE A DAY SOLD: 10/28/2020 [facility] 60 mg 10/28/2020 12:00:00 AM EDT capsule,delayed release (DR/EC) 60 TAKE ONE CAPSULE BY MOUTH TWICE A DAY TAKE ONE CAPSULE BY MOUTH TWICE A DAY SOLD: 01/25/2021 [facility] 15 mg 10/13/2020 12:00:00 AM EDT tablet extended release 90 TAKE ONE TABLET BY MOUTH EVERY 8 HOURS MAXIMUM DAILY DOSE = 3 TAKE ONE TABLET BY MOUTH EVERY 8 HOURS MAXIMUM DAILY DOSE = 3 SOLD: 10/15/2020 [facility] 5 mg 10/13/2020 12:00:00 AM EDT tablet 90 TAKE ONE TABLET BY MOUTH THREE TIMES A DAY NEEDED FOR PAIN MAXIMUM DAILY DOSE = 3 TAKE ONE TABLET BY MOUTH THREE TIMES A DAY NEEDED FOR PAIN MAXIMUM DAILY DOSE = 3 SOLD: 10/15/2020 [facility] tizanidine 2 MG Oral Tablet TIZANIDINE HCL 10/06/2020 12:00:00 AM EDT tablet 90 TAKE 1 TO 2 TABLETS BY MOUTH THREE TIMES A DAY . MAXIM UM DAILY DOSE = 6 TAKE 1 TO 2 TABLETS BY MOUTH THREE TIMES A DAY . MAXIMUM DAILY DOSE = 6 SOLD: 11/09/2020 [facility] tizanidine 2 MG Oral Tablet TIZANIDINE HCL 10/06/2020 12:00:00 AM EDT tablet 90 TAKE 1 TO 2 TABLETS BY MOUTH THREE TIMES A DAY . MAXIM UM DAILY DOSE = 6 TAKE 1 TO 2 TABLETS BY MOUTH THREE TIMES A DAY . MAXIMUM DAILY DOSE = 6 SOLD: 12/08/2020 [facility] tizanidine 2 MG Oral Tablet TIZANIDINE HCL 10/06/2020 12:00:00 AM EDT tablet 90 TAKE 1 TO 2 TABLETS BY MOUTH THREE TIMES A DAY . MAXIM UM DAILY DOSE = 6 TAKE 1 TO 2 TABLETS BY MOUTH THREE TIMES A DAY . MAXIMUM DAILY DOSE = 6 SOLD: 10/25/2020 [facility] tizanidine 2 MG Oral Tablet TIZANIDINE HCL 10/06/2020 12:00:00 AM EDT tablet 90 TAKE 1 TO 2 TABLETS BY MOUTH THREE TIMES A DAY . MAXIM UM DAILY DOSE = 6 TAKE 1 TO 2 TABLETS BY MOUTH THREE TIMES A DAY . MAXIMUM DAILY DOSE = 6 SOLD: 11/24/2020 [facility] [facility] tizanidine 2 MG Oral Tablet TIZANIDINE HCL 10/06/2020 12:00:00 AM EDT tablet 90 TAKE 1 TO 2 TABLETS BY MOUTH THREE TIMES A DAY . MAXIM UM DAILY DOSE = 6 TAKE 1 TO 2 TABLETS BY MOUTH THREE TIMES A DAY . MAXIMUM DAILY DOSE = 6 SOLD: 10/10/2020 [facility] tizanidine 2 MG Oral Tablet TIZANIDINE HCL 10/06/2020 12:00:00 AM EDT tablet 90 TAKE 1 TO 2 TABLETS BY MOUTH THREE TIMES A DAY . MAXIM UM DAILY DOSE = 6 TAKE 1 TO 2 TABLETS BY MOUTH THREE TIMES A DAY . MAXIMUM DAILY DOSE = 6 SOLD: 12/21/2020 [facility] 15 mg 09/12/2020 12:00:00 AM EDT tablet extended release 90 TAKE ONE TABLET BY MOUTH EVERY 8 HOURS MAXIMUM DAILY DOSE = 3 TABLETS TAKE ONE TABLET BY MOUTH EVERY 8 HOURS MAXIMUM DAILY DOSE = 3 TABLETS SOLD: 09/12/2020 [facility] 5 mg 09/12/2020 12:00:00 AM EDT tablet 90 TAKE 1 TABLET BY MOUTH 3 TIMES A DAY NEEDED FOR PAIN MAX DAILY DOSE = 3 TABLETS TAKE 1 TABLET BY MOUTH 3 TIMES A DAY NEEDED FOR PAIN MAX DAILY DOSE = 3 TABLETS SOLD: 09/12/2020 [facility] 1,250 mcg (50,000 unit) 08/19/2020 12:00:00 AM EDT capsule 4 TAKE ONE CAPSULE BY MOUTH ONCE WEEKLY TAKE ONE CAPSULE BY MOUTH ONCE WEEKLY SOLD: 08/23/2020 [facility] 1,250 mcg (50,000 unit) 08/19/2020 12:00:00 AM EDT capsule 4 TAKE ONE CAPSULE BY MOUTH ONCE WEEKLY TAKE ONE CAPSULE BY MOUTH ONCE WEEKLY SOLD: 11/16/2020 [facility] 1,250 mcg (50,000 unit) 08/19/2020 12:00:00 AM EDT capsule 4 TAKE ONE CAPSULE BY MOUTH ONCE WEEKLY TAKE ONE CAPSULE BY MOUTH ONCE WEEKLY SOLD: 10/20/2020 [facility] 1,250 mcg (50,000 unit) 08/19/2020 12:00:00 AM EDT capsule 4 TAKE ONE CAPSULE BY MOUTH ONCE WEEKLY TAKE ONE CAPSULE BY MOUTH ONCE WEEKLY SOLD: 09/22/2020 [facility] 15 mg 08/13/2020 12:00:00 AM EDT tablet extended release 90 TAKE ONE TABLET BY MOUTH EVERY 8 HOURS MAX OF 3 PER DAY TAKE ONE TABLET BY MOUTH EVERY 8 HOURS MAX OF 3 PER DAY SOLD: 08/14/2020 [facility] 5 mg 08/13/2020 12:00:00 AM EDT tablet 90 TAKE ONE TABLET BY MOUTH THREE TIMES A DAY NEEDED FOR PAIN MAXIMUM DAILY DOSE = 3 TABLETS TAKE ONE TABLET BY MOUTH THREE TIMES A DAY NEEDED FOR PAIN MAXIMUM DAILY DOSE = 3 TABLETS SOLD: 08/14/2020 [facility] 5 mg 07/14/2020 12:00:00 AM EST tablet 90 TAKE ONE TABLET BY MOUTH THREE TIMES A DAY NEEDED FOR PAIN MAXIMUM DAILY DOSE = 3 TABLETS TAKE ONE TABLET BY MOUTH THREE TIMES A DAY NEEDED FOR PAIN MAXIMUM DAILY DOSE = 3 TABLETS SOLD: 07/15/2020 [facility] 15 mg 07/14/2020 12:00:00 AM EST tablet extended release 90 TAKE ONE TABLET BY MOUTH EVERY 8 HOURS MAXIMUM DAILY DOSE = 3 TABLETS TAKE ONE TABLET BY MOUTH EVERY 8 HOURS MAXIMUM DAILY DOSE = 3 TABLETS SOLD: 07/15/2020 [facility] 40 mg 07/10/2020 12:00:00 AM EST capsule,delayed release (DR/EC) 30 TAKE ONE CAPSULE BY MOUTH EVERY DAY TAKE ONE CAPSULE BY MOUTH EVERY DAY SOLD: 11/12/2020 [facility] 40 mg 07/10/2020 12:00:00 AM EST capsule,delayed release (DR/EC) 30 TAKE ONE CAPSULE BY MOUTH EVERY DAY TAKE ONE CAPSULE BY MOUTH EVERY DAY SOLD: 07/15/2020 [facility] 40 mg 07/10/2020 12:00:00 AM EST capsule,delayed release (DR/EC) 30 TAKE ONE CAPSULE BY MOUTH EVERY DAY TAKE ONE CAPSULE BY MOUTH EVERY DAY SOLD: 10/13/2020 [facility] 40 mg 07/10/2020 12:00:00 AM EST capsule,delayed release (DR/EC) 30 TAKE ONE CAPSULE BY MOUTH EVERY DAY TAKE ONE CAPSULE BY MOUTH EVERY DAY SOLD: 09/12/2020 [facility] 40 mg 07/10/2020 12:00:00 AM EST capsule,delayed release (DR/EC) 30 TAKE ONE CAPSULE BY MOUTH EVERY DAY TAKE ONE CAPSULE BY MOUTH EVERY DAY SOLD: 08/14/2020 [facility] 70 mg 07/07/2020 12:00:00 AM EST tablet 4 TAKE 1TAB.BY MOUTH WEEKLY 30MIN. BEFORE 1ST FOOD/LIQUID RX OF DAY W/PLAIN WATER TAKE 1TAB.BY MOUTH WEEKLY 30MIN. BEFORE 1ST FOOD/LIQUID RX OF DAY W/PLAIN WATER SOLD: 10/05/2020 [facility] 70 mg 07/07/2020 12:00:00 AM EST tablet 4 TAKE 1TAB.BY MOUTH WEEKLY 30MIN. BEFORE 1ST FOOD/LIQUID RX OF DAY W/PLAIN WATER TAKE 1TAB.BY MOUTH WEEKLY 30MIN. BEFORE 1ST FOOD/LIQUID RX OF DAY W/PLAIN WATER SOLD: 09/07/2020 [facility] 70 mg 07/07/2020 12:00:00 AM EST tablet 4 TAKE 1TAB.BY MOUTH WEEKLY 30MIN. BEFORE 1ST FOOD/LIQUID RX OF DAY W/PLAIN WATER TAKE 1TAB.BY MOUTH WEEKLY 30MIN. BEFORE 1ST FOOD/LIQUID RX OF DAY W/PLAIN WATER SOLD: 08/08/2020 [facility] 70 mg 07/07/2020 12:00:00 AM EST tablet 4 TAKE 1TAB.BY MOUTH WEEKLY 30MIN. BEFORE 1ST FOOD/LIQUID RX OF DAY W/PLAIN WATER TAKE 1TAB.BY MOUTH WEEKLY 30MIN. BEFORE 1ST FOOD/LIQUID RX OF DAY W/PLAIN WATER SOLD: 11/29/2020 [facility] 70 mg 07/07/2020 12:00:00 AM EST tablet 4 TAKE 1TAB.BY MOUTH WEEKLY 30MIN. BEFORE 1ST FOOD/LIQUID RX OF DAY W/PLAIN WATER TAKE 1TAB.BY MOUTH WEEKLY 30MIN. BEFORE 1ST FOOD/LIQUID RX OF DAY W/PLAIN WATER SOLD: 07/09/2020 [facility] 70 mg 07/07/2020 12:00:00 AM EST tablet 4 TAKE 1TAB.BY MOUTH WEEKLY 30MIN. BEFORE 1ST FOOD/LIQUID RX OF DAY W/PLAIN WATER TAKE 1TAB.BY MOUTH WEEKLY 30MIN. BEFORE 1ST FOOD/LIQUID RX OF DAY W/PLAIN WATER SOLD: 11/01/2020 [facility] Alendronic acid 70 MG Oral Tablet [Fosamax] Fosamax 70 MG Fo samax 70 MG 07/06/2020 12:00:00 AM EST active Fosamax 70 MG eCW1 ([facility]) Alendronic acid 70 MG Oral Tablet [Fosamax] Fosamax 70 MG Fo samax 70 MG 07/06/2020 12:00:00 AM EST active Fosamax 70 MG eCW1 ([facility]) Alendronic acid 70 MG Oral Tablet [Fosamax] Fosamax 70 MG Fo samax 70 MG 07/06/2020 12:00:00 AM EST active Fosamax 70 MG eCW1 ([facility]) 100 mcg 06/23/2020 12:00:00 AM EST tablet 30 TAKE ONE TABLET BY MOUTH EVERY MORNING TAKE ONE TABLET BY MOUTH EVERY MORNING SOLD: 06/24/2020 [facility] 100 mcg 06/23/2020 12:00:00 AM EST tablet 30 TAKE ONE TABLET BY MOUTH EVERY MORNING TAKE ONE TABLET BY MOUTH EVERY MORNING SOLD: 10/20/2020 [facility] 100 mcg 06/23/2020 12:00:00 AM EST tablet 30 TAKE ONE TABLET BY MOUTH EVERY MORNING TAKE ONE TABLET BY MOUTH EVERY MORNING SOLD: 07/24/2020 [facility] 100 mcg 06/23/2020 12:00:00 AM EST tablet 30 TAKE ONE TABLET BY MOUTH EVERY MORNING TAKE ONE TABLET BY MOUTH EVERY MORNING SOLD: 08/23/2020 [facility] 100 mcg 06/23/2020 12:00:00 AM EST tablet 30 TAKE ONE TABLET BY MOUTH EVERY MORNING TAKE ONE TABLET BY MOUTH EVERY MORNING SOLD: 09/22/2020 [facility] 15 mg 06/16/2020 12:00:00 AM EST tablet extended release 90 TAKE ONE TABLET BY MOUTH EVERY 8 HOURS MAXIMUM DAILY DOSE = 3 TABLETS TAKE ONE TABLET BY MOUTH EVERY 8 HOURS MAXIMUM DAILY DOSE = 3 TABLETS SOLD: 06/19/2020 [facility] 5 mg 06/16/2020 12:00:00 AM EST tablet 90 TAKE ONE TABLET BY MOUTH THREE TIMES A DAY NEEDED FOR PAIN MAXIMUM DAILY DOSE = 3 TABLETS TAKE ONE TABLET BY MOUTH THREE TIMES A DAY NEEDED FOR PAIN MAXIMUM DAILY DOSE = 3 TABLETS SOLD: 06/19/2020 [facility] 20 mg 06/13/2020 12:00:00 AM EST tablet 30 TAKE ONE TABLET BY MOUTH EVERY DAY TAKE ONE TABLET BY MOUTH EVERY DAY SOLD: 06/13/2020 [facility] 60 mg 05/25/2020 12:00:00 AM EST capsule,delayed release (DR/EC) 60 TAKE ONE CAPSULE BY MOUTH TWICE A DAY TAKE ONE CAPSULE BY MOUTH TWICE A DAY SOLD: 09/22/2020 [facility] 60 mg 05/25/2020 12:00:00 AM EST capsule,delayed release (DR/EC) 60 TAKE ONE CAPSULE BY MOUTH TWICE A DAY TAKE ONE CAPSULE BY MOUTH TWICE A DAY SOLD: 08/23/2020 [facility] 60 mg 05/25/2020 12:00:00 AM EST capsule,delayed release (DR/EC) 60 TAKE ONE CAPSULE BY MOUTH TWICE A DAY TAKE ONE CAPSULE BY MOUTH TWICE A DAY SOLD: 05/27/2020 [facility] 60 mg 05/25/2020 12:00:00 AM EST capsule,delayed release (DR/EC) 60 TAKE ONE CAPSULE BY MOUTH TWICE A DAY TAKE ONE CAPSULE BY MOUTH TWICE A DAY SOLD: 07/24/2020 [facility] 60 mg 05/25/2020 12:00:00 AM EST capsule,delayed release (DR/EC) 60 TAKE ONE CAPSULE BY MOUTH TWICE A DAY TAKE ONE CAPSULE BY MOUTH TWICE A DAY SOLD: 06/25/2020 [facility] 5 mg 05/15/2020 12:00:00 AM EST tablet 90 TAKE ONE TABLET BY MOUTH THREE TIMES A DAY NEEDED FOR PAIN MAXIMUM DAILY DOSE = 3 TAKE ONE TABLET BY MOUTH THREE TIMES A DAY NEEDED FOR PAIN MAXIMUM DAILY DOSE = 3 SOLD: 05/17/2020 [facility] 15 mg 05/15/2020 12:00:00 AM EST tablet extended release 90 TAKE ONE TABLET BY MOUTH EVERY 8 HOURS MAXIMUM DAILY DOSE = 3 TABLETS TAKE ONE TABLET BY MOUTH EVERY 8 HOURS MAXIMUM DAILY DOSE = 3 TABLETS SOLD: 05/17/2020 [facility] 20 mg 05/13/2020 12:00:00 AM EST tablet 30 TAKE ONE TABLET BY MOUTH EVERY DAY TAKE ONE TABLET BY MOUTH EVERY DAY SOLD: 05/13/2020 [facility] 1,250 mcg (50,000 unit) 04/23/2020 12:00:00 AM EST capsule 4 TAKE ONE CAPSULE BY MOUTH EVERY WEEK TAKE ONE CAPSULE BY MOUTH EVERY WEEK SOLD: 07/24/2020 [facility] 1,250 mcg (50,000 unit) 04/23/2020 12:00:00 AM EST capsule 4 TAKE ONE CAPSULE BY MOUTH EVERY WEEK TAKE ONE CAPSULE BY MOUTH EVERY WEEK SOLD: 04/24/2020 [facility] 1,250 mcg (50,000 unit) 04/23/2020 12:00:00 AM EST capsule 4 TAKE ONE CAPSULE BY MOUTH EVERY WEEK TAKE ONE CAPSULE BY MOUTH EVERY WEEK SOLD: 05/24/2020 [facility] 1,250 mcg (50,000 unit) 04/23/2020 12:00:00 AM EST capsule 4 TAKE ONE CAPSULE BY MOUTH EVERY WEEK TAKE ONE CAPSULE BY MOUTH EVERY WEEK SOLD: 06/24/2020 [facility] 5 mg 04/13/2020 12:00:00 AM EST tablet 90 TAKE ONE TABLET BY MOUTH THREE TIMES A DAY NEEDED FOR PAIN MAXIMUM DAILY DOSE = 3 TAKE ONE TABLET BY MOUTH THREE TIMES A DAY NEEDED FOR PAIN MAXIMUM DAILY DOSE = 3 SOLD: 04/16/2020 [facility] 15 mg 04/13/2020 12:00:00 AM EST tablet extended release 90 TAKE ONE TABLET BY MOUTH EVERY 8 HOURS MAXIMUM DAILY DOSE = 3 TABLETS TAKE ONE TABLET BY MOUTH EVERY 8 HOURS MAXIMUM DAILY DOSE = 3 TABLETS SOLD: 04/16/2020 [facility] 2.5 mg 04/03/2020 12:00:00 AM EST tablet 30 TAKE ONE TABLET BY MOUTH EVERY DAY TAKE ONE TABLET BY MOUTH EVERY DAY SOLD: 04/04/2020 [facility] 5 mg 03/12/2020 12:00:00 AM EDT tablet 90 TAKE ONE TABLET BY MOUTH THREE TIMES A DAY NEEDED FOR PAIN MAX DAILY DOSE=3TABS. TAKE ONE TABLET BY MOUTH THREE TIMES A DAY NEEDED FOR PAIN MAX DAILY DOSE=3TABS. SOLD: 03/14/2020 [facility] 15 mg 03/12/2020 12:00:00 AM EDT tablet extended release 90 TAKE ONE TABLET BY MOUTH EVERY 8 HOURS MAXIMUM DAILY DOSE = 3 TABLETS TAKE ONE TABLET BY MOUTH EVERY 8 HOURS MAXIMUM DAILY DOSE = 3 TABLETS SOLD: 03/14/2020 [facility] tizanidine 2 MG Oral Tablet TIZANIDINE HCL 03/09/2020 12:00:00 AM EDT tablet 90 TAKE 1-2 TABLETS BY MOUTH THREE TIMES A DAY MAXIMUM DA ERICKA DOSE = 6 TABLETS TAKE 1-2 TABLETS BY MOUTH THREE TIMES A DAY MAXIMUM DAILY DOSE = 6 TABLETS SOLD: 08/14/2020 [facility] tizanidine 2 MG Oral Tablet TIZANIDINE HCL 03/09/2020 12:00:00 AM EDT tablet 90 TAKE 1-2 TABLETS BY MOUTH THREE TIMES A DAY MAXIMUM DA ERICKA DOSE = 6 TABLETS TAKE 1-2 TABLETS BY MOUTH THREE TIMES A DAY MAXIMUM DAILY DOSE = 6 TABLETS SOLD: 06/13/2020 [facility] tizanidine 2 MG Oral Tablet TIZANIDINE HCL 03/09/2020 12:00:00 AM EDT tablet 90 TAKE 1-2 TABLETS BY MOUTH THREE TIMES A DAY MAXIMUM DA ERICKA DOSE = 6 TABLETS TAKE 1-2 TABLETS BY MOUTH THREE TIMES A DAY MAXIMUM DAILY DOSE = 6 TABLETS SOLD: 03/11/2020 [facility] tizanidine 2 MG Oral Tablet TIZANIDINE HCL 03/09/2020 12:00:00 AM EDT tablet 90 TAKE 1-2 TABLETS BY MOUTH THREE TIMES A DAY MAXIMUM DA ERICKA DOSE = 6 TABLETS TAKE 1-2 TABLETS BY MOUTH THREE TIMES A DAY MAXIMUM DAILY DOSE = 6 TABLETS SOLD: 07/15/2020 [facility] tizanidine 2 MG Oral Tablet TIZANIDINE HCL 03/09/2020 12:00:00 AM EDT tablet 90 TAKE 1-2 TABLETS BY MOUTH THREE TIMES A DAY MAXIMUM DA ERICKA DOSE = 6 TABLETS TAKE 1-2 TABLETS BY MOUTH THREE TIMES A DAY MAXIMUM DAILY DOSE = 6 TABLETS SOLD: 09/09/2020 [facility] 1 mg 02/26/2020 12:00:00 AM EDT tablet 90 TAKE ONE TABLET BY MOUTH EVERY DAY TAKE ONE TABLET BY MOUTH EVERY DAY SOLD: 02/26/2020 [facility] 40 mg 02/07/2020 12:00:00 AM EDT capsule,delayed release (DR/EC) 30 TAKE ONE CAPSULE BY MOUTH EVERY DAY TAKE ONE CAPSULE BY MOUTH EVERY DAY SOLD: 03/11/2020 [facility] 40 mg 02/07/2020 12:00:00 AM EDT capsule,delayed release (DR/EC) 30 TAKE ONE CAPSULE BY MOUTH EVERY DAY TAKE ONE CAPSULE BY MOUTH EVERY DAY SOLD: 04/11/2020 [facility] 40 mg 02/07/2020 12:00:00 AM EDT capsule,delayed release (DR/EC) 30 TAKE ONE CAPSULE BY MOUTH EVERY DAY TAKE ONE CAPSULE BY MOUTH EVERY DAY SOLD: 05/13/2020 [facility] 40 mg 02/07/2020 12:00:00 AM EDT capsule,delayed release (DR/EC) 30 TAKE ONE CAPSULE BY MOUTH EVERY DAY TAKE ONE CAPSULE BY MOUTH EVERY DAY SOLD: 06/13/2020 [facility] 100 mcg 01/01/2020 12:00:00 AM EDT tablet 30 TAKE ONE TABLET BY MOUTH EVERY MORNING TAKE ONE TABLET BY MOUTH EVERY MORNING SOLD: 04/27/2020 [facility] 100 mcg 01/01/2020 12:00:00 AM EDT tablet 30 TAKE ONE TABLET BY MOUTH EVERY MORNING TAKE ONE TABLET BY MOUTH EVERY MORNING SOLD: 05/27/2020 [facility] 100 mcg 01/01/2020 12:00:00 AM EDT tablet 30 TAKE ONE TABLET BY MOUTH EVERY MORNING TAKE ONE TABLET BY MOUTH EVERY MORNING SOLD: 03/29/2020 [facility] 100 mcg 01/01/2020 12:00:00 AM EDT tablet 30 TAKE ONE TABLET BY MOUTH EVERY MORNING TAKE ONE TABLET BY MOUTH EVERY MORNING SOLD: 02/28/2020 [facility] 2 mg 12/18/2019 12:00:00 AM EDT tablet 90 TAKE 1-2 TABLETS BY MOUTH 3 TIMES A DAY MAX DAILY DOSE = 6 TABLETS TAKE 1-2 TABLETS BY MOUTH 3 TIMES A DAY MAX DAILY DOSE = 6 TABLETS SOLD: 02/26/2020 [facility] 60 mg 11/25/2019 12:00:00 AM EDT capsule,delayed release (DR/EC) 60 TAKE ONE CAPSULE BY MOUTH TWICE A DAY TAKE ONE CAPSULE BY MOUTH TWICE A DAY SOLD: 02/28/2020 [facility] 60 mg 11/25/2019 12:00:00 AM EDT capsule,delayed release (DR/EC) 60 TAKE ONE CAPSULE BY MOUTH TWICE A DAY TAKE ONE CAPSULE BY MOUTH TWICE A DAY SOLD: 04/27/2020 [facility] 60 mg 11/25/2019 12:00:00 AM EDT capsule,delayed release (DR/EC) 60 TAKE ONE CAPSULE BY MOUTH TWICE A DAY TAKE ONE CAPSULE BY MOUTH TWICE A DAY SOLD: 03/29/2020 [facility] 1,250 mcg (50,000 unit) 08/05/2019 12:00:00 AM EDT capsule 4 TAKE 1 CAPSULE BY MOUTH WEEKLY TAKE 1 CAPSULE BY MOUTH WEEKLY SOLD: 03/29/2020 [facility] Insurance Providers Payer name Policy type / Coverage type Policy ID Covered green party ID Covered green party's relationship to diamond Policy Diamond Plan [place] [id number] SP [id number] [employer] [place]/[phone] [id number] SP [id number] [employer] [place]/307 [id number] SP [id number] [employer] [place] Workers Compensation [id number] Self [id number] [employer] ([employer]) Workers Compensation [id number] [id number] Self [id number] [employer] ([employer]) Workers Compensation [id number] 2.840.1.335865.3.227.99.991.249144.0 Self [id number] [employer] ([place] Workers Compensation [id number] 2.840.1.206[id number] Self [id number] [employer] ([place] Workers Compensation [id number] 2.840.1.964725.3.227.99.991.509578.0 Self [id number] [employer] ([place] Workers Compensation [id number] 2.840.1.659745.3.227.99.991.084705.0 Self [id number] [employer] ([employer]) Workers Compensation [id number] 2.16840.1.217533.3.227.99.991.326417.0 Self [id number] [employer] ([employer] Workers Compensation [id number] 2.840.1.009475.3.227.99.991.667137.0 Self [id number] [employer] ([employer] Workers Compensation [id number] 2.16.840.1.359017.3.227.99.991.914293.0 Self [id number] [employer] ([place] Workers Compensation [id number] 2.16.840.1.271590.3.227.99.991.479331.0 Self [id number] [employer] ([employer] Workers Compensation [id number] 2.16.840.1.807357.3.227.99.991.715969.0 Self [id number] [employer] ([employer] Workers Compensation [id number] 2.16.840.1.323739.3.227.99.991.846297.0 Self [id number] [employer] [place] Workers Compensation [id number] 2.16.840.1.465367.3.227.99.991.658267.0 Self [id number] [employer] ([place]) Workers Compensation 2.16.840.1.884417.3.227.99.991.276817.0 Self [employer] ([employer] Workers Compensation [id number] 2.16.840.1.620248.3.227.99.991.679010.0 Self [id number] [employer] [place] Workers Compensation [id number] 2.16.840.1.184528.3.227.99.991.991779.0 Self [id number] [employer] ([employer] Workers Compensation [id number] Self [id number] [employer] ([employer] Workers Compensation [id number] 2.16.840.1.538437.3.227.99.991.459442.0 Self [id number] [employer] [place] Workers Compensation [id number] 2.16.840.1.286596.3.227.99.991.292867.0 Self [id number] [employer] [place] Workers Compensation [id number] 2.16.840.1.412941.3.227.99.991.165194.0 Self [id number] [employer] ([employer] Workers Compensation [id number] 2.16.840.1.216121.3.227.99.991.417814.0 Self [id number] [employer] [place] Workers Compensation [id number] 2.16.840.1.550236.3.227.99.991.149459.0 Self [id number] [employer] [place] Workers Compensation [id number] 2.16840.1.169869.3.227.99.991.901133.0 Self [id number] [employer] ([employer] Workers Compensation [id number] Self [id number] [employer] ([employer] Workers Compensation [id number] 2.16840.1.817753.3.227.99.991.841817.0 Self [id number] [employer] ([employer] Workers Compensation [id number] 2.16840.1.838753.3.227.99.991.372819.0 Self [id number] [employer] [place] Workers Compensation [id number] 2.16840.1.427908.3.227.99.991.945061.0 Self [id number] [employer] ([employer] Workers Compensation [id number] 2.16840.1.867230.3.227.99.991.310811.0 Self [id number] [employer] ([employer] Workers Compensation [id number] 2.16.840.1.985750.3.227.99.991.921609.0 Self [id number] [employer] ([employer] Workers Compensation [id number] 2.16.840.1.863040.3.227.99.991.190895.0 Self [id number] [employer] ([employer] Workers Compensation [id number] 2.16.840.1.476722.3.227.99.991.927047.0 Self [id number] [employer] B [id number] 2.16840.1.603207.3.227.99.991.865121.0 Self [id number] [employer] [id number] 2.840.1.428033.3.227.99.991.010839.0 Self [id number] [employer] B [id number] 2.16840.1.181742.3.227.99.991.444694.0 Self [id number] [employer] B [id number] 2.16840.1.644104.3.227.99.991.083913.0 Self [id number] [employer] Part B [id number] 2.16840.1.620487.3.227.99.991.895378.0 Self [id number] [employer] B [id number] 2.16840.1.574793.3.227.99.991.122655.0 Self [id number] [employer] [id number] Self [id number] [employer] Part B [id number] 2.16.840.1.179061.3.227.99.991.254552.0 Self [id number] [facility] [id number] 2.16.840.1.809366.3.227.99.991.481511.0 Self [id number] [employer] B [id number] 2.16.840.1.599594.3.227.99.991.231005.0 Self [id number] [facility] [id number] 2.16840.1.725736.3.227.99.991.896417.0 Self [id number] [facility] [id number] Self [id number] [facility] [id number] 2.16840.1.181445.3.227.99.991.647861.0 Self [id number] [employer] [id number] 2.16.840.1.504216.3.227.99.991.751566.0 Self [id number] [employer] [place] [id number] 2.16.840.1.876837.3.227.99.991.174856.0 Self [id number] [employer] Part B [id number] 2.16.840.1.977447.3.227.99.991.300783.0 Self [id number] [employer] [facility] Part B [id number] 2.16.840.1.354538.3.227.99.991.796796.0 Self [id number] [employer] [facility] Part B [id number] 2.16.840.1.375947.3.227.99.991.930757.0 Self [id number] [employer] [facility] Part B [id number] 2.16.840.1.245934.3.227.99.991.396485.0 Self [id number] [employer] [facility] Part B [id number] 2.16.840.1.689105.3.227.99.991.440382.0 Self [id number] [employer] [place] [facility] Part B [id number] 2.16.840.1.879558.3.227.99.991.450076.0 Self [id number] [employer] [place] [facility] Part B [id number] 2.16.840.1.673778.3.227.99.991.723340.0 Self [id number] [employer] ([employer]) Workers Compensation [id number] 2.16.840.1.459049.3.227.99.991.095379.0 Self [id number] [employer] ([employer]) Workers Compensation [id number] Self [id number] [employer] ([employer]) Workers Compensation [id number] Self [id number] [employer] ([employer]) Workers Compensation [id number] Self [id number] [employer] ([place]) Workers Compensation [id number] Self [id number] [employer] ([employer]) Workers Compensation [id number] 2.16840.1.280889.3.227.99.991.319386.0 Self [id number] [employer] ([place]) Workers Compensation [id number] 2.16840.1. 010047.3.227.99.991.916082.0 Self [id number] [employer] ([employer]) Workers Compensation [id number] 2.16840.1.604745.3.227.99.991.063453.0 Self [id number] [employer] ([employer]) Workers Compensation [id number] 2.16840.1. 019077.3.227.99.991.174220.0 Self [id number] [employer] ([employer] Workers Compensation [id number] 2.16840.1.685715.3.227.99.991.559045.0 Self [id number] [employer] Workers Compensation [id number] 2.16840.1.473061.3.227.99.991.915985.0 Self [id number] [employer] Workers Compensation [id number] 2.16840.1.892987.3.227.99.991.370441.0 Self [id number] [employer] Workers Compensation [id number] 2.16840.1.041371.3.227.99.991.211929.0 Self [id number] [employer] Workers Compensation [id number] 2.16840.1.942162.3.227.99.991.785420.0 Self [id number] [employer] Workers Compensation [id number] 2.16840.1.635100.3.227.99.991.061826.0 Self [id number] [employer] Workers Compensation [id number] 2.16840.1.535266.3.227.99.991.655730.0 Self [id number] [employer] Workers Compensation [id number] 2.16840.1.091799.3.227.99.991.246488.0 Self [id number] [employer] Workers Compensation [id number] 2.840.1.041894.3.227.99.991.730786.0 Self [id number] [employer] Workers Compensation [id number] 2.16840.1.925178.3.227.99.991.965655.0 Self [id number] [employer] Workers Compensation [id number] 2.840.1.911446.3.227.99.991.883704.0 Self [id number] [employer] Workers Compensation [id number] 2.840.1.087506.3.227.99.991.942957.0 Self [id number] [employer] Workers Compensation [id number] 2.16840.1.943085.3.227.99.991.641613.0 Self [id number] [employer] Workers Compensation [id number] 2.16840.1.725027.3.227.99.991.635750.0 Self [id number] [employer] Workers Compensation [id number] 2.16.840.1.165394.3.227.99.991.106293.0 Self [id number] [employer] Workers Compensation [id number] 2.16.840.1.994706.3.227.99.991.119195.0 Self [id number] [employer] ([employer] Workers Compensation [id number] 2.16.840.1.113460.3.227.99.991.585527.0 Self [id number] [employer] Workers Compensation [id number] 2.16.840.1.046037.3.227.99.991.323982.0 Self [id number] [employer] Workers Compensation [id number] 2.16.840.1.500577.3.227.99.991.190609.0 Self [id number] [employer] Workers Compensation [id number] 2.16.840.1.582765.3.227.99.991.823714.0 Self [id number] [employer] Workers Compensation [id number] 2.16.840.1.865205.3.227.99.991.683521.0 Self [id number] [employer] ([employer] Workers Compensation [id number] Self [id number] [employer] ([employer]) Workers Compensation [id number] 2.16.840.1.446622.3.227.99.991.203929.0 Self [id number] [employer] (wc) Workers Compensation [id number] 2.16.840.1.735719.3.227.99.991.712665.0 Self [id number] [facility] [id number] SP [id number] [facility] [id number] SP [id number] ANSI-Medicaid [id number] ANSI-Medicaid [id number] [facility] B [id number] 2.16.840.1.026713.3.227.99.991.191285.0 Self [id number] OTHER WORKERS COMPENSATION WCB# [id number] SP WCB# [id number] EM[facility] [id number] SP [id number] ANSI-Commercial [id number]-[id number] ANSI-Commercial 9446ea1b-8zwm-5204-755b-r486ha73iewm 4441zg2h-0vty-7096-202n-o143yl65hevq [facility] B [id number] 2.16.840.1.528044.3.227.99.991.963777.0 Self [id number] [facility] [id number] SP [id number] [place] [id number] SP [id number] ANSI-Medicaid [id number] ANSI-Commercial [id number]-w48nqp1000d4 [id number]-[id number] ANSI-Commercial [id number]-6h14-7922-95gz220778jv [id number]-8u39-5812-68nt699734yi OTHER WORKERS COMPENSATION [id number] SP [id number] ANSI-Commercial [id number]-a74s-[id number] [id number]-n59q-[id number] ANSI-Medicaid [id number] ANSI-Commercial [id number]-hc9q-24id-2j53-n416dj794f81 2x131u31-tn0z-14bv-4e38-u750yh942m92 ANSI-Commercial [id number]-[id number] iacs6388-3887-3194-z0o8-0xd478u4286l ANSI-Commercial 36a0rkj0-924c-8z67-d53m-[id number] 37i7sna4-306t-7l17-l49u-[id number] [facility] Part B [id number] 2.16.840.1.979609.3.227.99.991.488131.0 Self [id number] [facility] [id number] S [id number] ANSI-Medicaid [id number] ANSI-Medicaid [id number] [facility] Community Plan Medigap Part B [id number] 2.16.840.1.663419.3.227.99.991.685218.0 Self [id number] [facility] B [id number] S S [id number] ANSI-Medicaid [id number] ANSI-Commercial [id number] o1n8b4f6-32o2-4483-8242-9143u8l8pf2v ANSI-Commercial 88fr977s-194c-4ta3-24q9-318352ggt4l8 47hz751b-731m-7pr6-62t7-049715lky6p1 ANSI-Commercial 32506mz6-dv1g-001s-66k3-589165cmw9s7 75338lh4-ba9t-462y-08s7-182305uuc6w0 [facility] [id number] 2..1.394515.3.227.99.991.439798.0 Self [id number] MEDICARE [id number] SP [id number] [facility] Health Maintenance Organization (HMO) [id number] 2..1.457042.3.227.99.1767.4650.0 Self [id number] [facility] Part B [id number] 2..1.104806.3.227.99.991.829691.0 Self [id number] [employer] P UNAVAILABLE [id number] S UNAV AILABLE ANSI-Commercial [id number]-887o-2427-5761-a33cye2785r2 xw8knv8n-720l-5195-9685-n93wus9552v6 ANSI-Commercial bb0hpk13-m7px-747r-6008-0ezm40u9977s vz3fto56-q5wa-523y-0734-5myg65r0408x [facility] Part B [id number] 2..1.135055.3.227.99.991.365692.0 Self [id number] [employer] MGMT [id number] SP [id number] ANSI-Medicaid [id number] ANSI-Commercial eq2357l6-u487-677b-7c8d-[id number] up4248j5-m805-434u-3c3y-4l1ojj862966 ANSI-Medicaid [id number] ANSI-Commercial 5714q9f2-1365-19p3-u261-618iqu2gi3q4 0316k9o6-7210-58m5-v031-885wwg4xg5f5 ANSI-Medicaid [id number] ANSI-Medicaid [id number] [facility] Plan Medigap Part B [id number] 2..840.1.037841.3.227.99.991.949416.0 Self [id number] [employer] [id number] SP WCST [id number] ANSI-Commercial 390g237y-1346-6mbz-9s5e-m1kvqvv938j7 066m370y-7982-9caa-0m8h-y7rqqux679h6 ANSI-Commercial 23x87q0a-76t3-014e-a89i-[id number] 66b27p6x-28i7-401g-a84u-[id number] [facility] Plan Medigap Part B [id number] 2.16.840.1.697317.3.227.99.991.895700.0 Self [id number] [place] [id number] SP [id number] [facility] Plan Medigap Part B [id number] Self [id number] [facility] ([facility] [id number] Self [id number] [facility] Part B [id number] 2.16.840.1.929771.3.227.99.991.790679.0 Self [id number] [facility] [id number] SP [id number] [facility] ([facility]) [id number] MRN.[id number] Self [id number] ANSI-Commercial qojt120o-y954-6912-46st-l041zl0w056b dvky863m-r681-1301-67wy-z398vk5h697l [facility] Part B [id number] 2..840.1.875466.3.227.99.991.675832.0 Self [id number] [facility] [id number] SP [id number] ANSI-Medicaid [id number] ANSI-Commercial 09u73pti-[id number] 45q69bdt-[id number] [facility] Part B [id number] 2.16.840.1.802162.3.227.99.991.729429.0 Self [id number] [facility] [id number] SP [id number] ANSI-Commercial [id number] [id number] ANSI-Medicaid [id number] [facility] B [id number] 2.16.840.1.697302.3.227.99.991.170010.0 Self [id number] BCBS [place] PPO 302/307 [id number] SP [id number] ANSI-Commercial [id number]-[id number] k384g2z4-4618-1b39-617g-[id number] ANSI-Medicaid [id number] [facility] [id number] 840.1.342077.3.227.99.991.331706.0 Self [id number] BCBS [place] PPO 302/307 [id number] SP [id number] [facility] [id number] S 1 [id number] [facility] O [id number] S [id number] 76 ANSI-Commercial [id number]8to [id number]5wk ANSI-Commercial 32946ej9-vt49-90m1-1498-i70ys6m6ztgx [id number]-xg53-34l1-3467-r66zh6l8goph [facility] B [id number] 2.840.1.721143.3.227.99.991.064660.0 Self [id number] [employer] MANAGMENT [id number] SP [id number] [facility] B [id number] Self [id number] [employer] MGMT [id number] SP [id number] [facility] Community Plan Medigap Part B [id number] 2.840.1.201672.3.227.99.991.620457.0 Self [id number] [employer] MGMT [id number] SP [id number] [facility]) O [id number] S [id number] [facility] O [id number] S [id number] [facility] O UNAVAILABLE [id number] S UN AVAILABLE [facility] Plan Commercial [id number] 7.99.991.215194.0 Self [id number] [employer] MGMT SP [id number] BCBS [place] PPO 302/307 [id number] SP [id number] [facility] O [id number] S 2 [id number] [employer]BS B [id number] S [id number] [id number] [employer] O [id number] S [id number] [facility] Plan Commercial [id number] 06.30.840.1.063318.3.22 7.99.991.484380.0 Self [id number] [employer] O [id number] S [id number] [facility] [id number] SP [id number] [employer] MANAGEMENT O [id number] S [id number] [facility] Plan Commercial [id number] 7.99.991.385318.0 Self [id number] [employer] MGMT UNAVAILABLE SP UNAVAILABLE MEDICAID [id number] SP [id number] Workers Comp Workers Compensation [id number] Self [facility]) O [id number] S [id number] [employer] MGMT [id number] SP [id number] BCBS [place] PPO 302/307 [id number] SP [id number] MEDICAID [id number] SP [id number] BCBS/[employer] Commercial [id number] Self MEDICAID [id number] S [id number] BS [place] Commercial [id number] Self [facility]) O [id number] S [id number] EMEDNY [id number] SP [id number] ANSI-Commercial [id number]-[id number]-0319-s71u-[id number]-s1vf-2316-x02o-[id number] ANSI-Commercial s80373hh-[id number]-[id number] [id number]-5t27-2238-6c5t-[id number] ANSI-Medicaid [id number] ANSI-Commercial [id number] l90x8k55-6541-8l07-32u4-0996b7cmkt56 ANSI-Commercial [id number]-j4z7-5963fh383rus [id number]-i3n1-4578ra191eyr ANSI-Commercial 1865k2kp-2r2y-0530-b249-813301yf37x7 5664i3uz-3c5e-1456-x267-005927jc50u6 ANSI-Commercial gz4no0m8-8071-236h-v30z-7ea06vby7122 jm2rz8z0-3787-683h-f51a-2cs58rcj3829 ANSI-Medicaid [id number] ANSI-Medicaid [id number] ANSI-[employer] [id number]-t739-[id number]-a970-m40w77m8cp69 ANSI-[employer] 0a59v5l9-6k2n-2251-0zut-[id number] 7f15e5q3-6g2h-0077-2tqv-oi054l3049v5 ANSI-Medicaid [id number] ANSI-[employer] [id number]-[id number]-[id number] [id number]-9nc1-5z86-[id number] ANSI-[employer] se6lwdso-80uv-878u-96ov-[id number] cg3tmelh-47ve-343s-63xc-[id number] ANSI-Medicaid [id number] ANSI-[employer] [id number]-wwm0-0935-z7d2-879185rbgu72 453am0l5-vqz4-2387-d0h6-816044jiye84 ANSI-[employer] vx8cirw3-6819-2hc8-u117-[id number] dj7qkdk9-4020-5ur7-d557-a45061gz1677 ANSI-[employer] 60344h5t-0k0u-954u-nwv3-b0c3j99s8337 40243c7w-2y7f-300h-utj4-q7m9s53h8870 ANSI-Commercial j081jg86-33i5-5db5-t22h-[id number] p293na04-21m3-0jr1-f23b-284h27itt924 ANSI-Medicaid [id number] ANSI-Medicaid [id number] ANSI-Commercial [id number]-x472-3dg8-98cq-788426h8x9hw yb193oy2-k581-9zi1-13tw-851436s3e8ke ANSI-Commercial [id number] ANSI-Medicaid [id number] ANSI-Commercial [id number]-jj32-g250wn9vfcmj 10194as7-7061-9zh4-bp78-p377je1ykump ANSI-Commercial [id number]-[id number] [id number]-57626pe47b97 OTHER WORKERS COMPENSATION [id number] SP [id number] ANSI-Medicaid [id number] ANSI-Commercial [id number]-gv4w-[id number] [id number]-wc0y-37zn5jjuo382 ANSI-Commercial gmy4i258-5b3e-90vk-849i-[id number]-54qy-[id number] Problems, Conditions, and Diagnoses Code Display Name Description Problem Type Effective Dates Data Source(s) K59.00 18263589 Constipation, unspecified constipation ty pe Problem 11/03/2020 12:00:00 AM EDT eCW1 ([facility]) Surgeries/Procedures Procedure Description Date Indications Data Source(s) OFFICE OUTPATIENT VISIT 15 MINUTES 02/11/2021 12:00:00 AM EDT [facility] ([facility] ) PHYSICIAN TELEPHONE EVALUATION 5-10 MIN 02/11/2021 12: 00:00 AM EDT [facility] ([facility] ) OFFICE OUTPATIENT VISIT 10 MINUTES 02/01/2021 12:00:00 AM EDT [facility] ([facility] ) PHYSICIAN TELEPHONE EVALUATION 5-10 MIN 02/01/2021 12: 00:00 AM EDT [facility] ([facility] ) PHYSICIAN TELEPHONE EVALUATION 5-10 MIN 02/01/2021 12: 00:00 AM EDT [facility] ([facility] ) NJX ANES&/STRD W/IMG TFRML EDRL LMBR/SAC 1 LVL 021 12:00:00 AM EDT [facility] ([facility] ) NJX ANES&/STRD W/IMG TFRML EDRL LMBR/SAC 1 LVL 021 12:00:00 AM EDT [facility] ([facility] ) Epidurography Radiological Supervision & Interpretation 01/25/2021 12:00:00 AM EDT [facility] ([facility] ) X-Ray Spine Lumbosacral Complete Inc Bending Views Min Of 6 10/22/2020 12:00:00 AM EDT [facility] ([facility] ) OFFICE OUTPATIENT VISIT 15 MINUTES 10/22/2020 12:00:00 AM EDT [facility] ([facility] ) PHYSICIAN TELEPHONE EVALUATION 5-10 MIN 07/14/2020 12: 00:00 AM EST [facility] ([facility] ) ARTHROCENTESIS ASPIR&/INJECTION MAJOR JT/BURSA 020 12:00:00 AM EST [facility] ([facility] ) Injec(S),Diag Or Therapeutic Agent, Paravertebral Lumber Or Sacr 03/23/2020 12:00:00 AM EST [facility] ([facility] ) Injec(S),Diag Or Therapeutic Agent, Paravertebral Lumber Or Sacr 03/23/2020 12:00:00 AM EST [facility] ([facility] ) Moderate Sedation Services; Same Phys Intl 15 Mins; PT >= 5 Years 03/23/2020 12:00:00 AM EST [facility] ([facility] ) Moderate Sedation Services; Same Phys Each Additional 15 Min s 03/23/2020 12:00:00 AM EST [facility] ([facility] ) Results ID Date Data Source [id number] 01/20/2021 09:25:00 AM EDT [facility] ([facility] ) Name Value Range Interpretation Code Description Data Patrizia rce(s) Supporting Document(s) Covid Rapid Testing Laboratory test result [facility] ([facility] ) ID Date Data Source [id number] 01/20/2021 12:00:00 AM EDT [facility] Name Value Range Interpretation Code Description Data Patrizia rce(s) Supporting Document(s) Covid Rapid Testing Negative [facility] This lab was ordered by [facility] and re ported by [facility]. ID Date Data Source [id number] 12/17/2020 02:23:00 PM EDT [facility] ([facility] ) Name Value Range Interpretation Code Description Data Patrizia rce(s) Supporting Document(s) Glucose, Fasting 92 mg/dL 70-100 [facility] ([facility] ) Blood Urea Nitrogen 9 mg/dL 7-18 [facility] (No [facility] ) Sodium Level 139 meq/L 136-145 [facility] ([facility] ) Glomerular Filtration Rate Laboratory test result [facility] ([facility] ) <content>Units are mL/min/1.73 m2</content>
<content></content>
<content>Chronic Kidney Disease Staging per NKF:</content>
<content></content>
<content>Stage I & II GFR >=60 Normal to Mildly Decreased</content>
<content>Stage III GFR 30- 59 Moderately Decreased</content>
<content>Stage IV GFR 15-29 Severely Decreased</content>
<content>Stage V GFR <15 Very Little GFR Left</content>
<content>ESRD GFR <15 on ASSISTIVE TECHNOLOGY SPECIALIST</content>
<content></content> Creatinine For GFR 0.76 mg/dL 0.55-1.30 [facility] ([facility]) Carbon Dioxide Level 29 meq/L 21-32 [facility] ( [facility] Chloride Level 102 meq/L 98-107 [facility] ([facility] Potassium Serum 4.4 meq/L 3.5-5.1 [facility] ([facility]) Calcium Level 9.5 mg/dL 8.8-10.2 [facility] ([facility] Anion Gap 8 meq/L 8-16 [facility] Ast/Sgot 32 U/L 7-37 [facility] Alkaline Phosphatase 81 U/L 45-117 [facility] ([facility] Alt/SGPT 36 U/L 12-78 [facility] Total Protein 7.0 GM/DL 6.4-8.2 [facility] ([facility] Bilirubin,Total 0.5 mg/dL 0.2-1.0 [facility] ([facility]) Albumin/Globulin Ratio 1.1 1.2-2.2 [facility] ([facility]) Albumin 3.7 GM/DL 3.2-5.2 [facility] ([facility]) ID Date Data Source [id number] 12/17/2020 02:23:00 PM EDT [facility] ([facility]) Name Value Range Interpretation Code Description Data Patrizia rce(s) Supporting Document(s) Hemoglobin 15.5 g/dL 12.0-15.5 [facility] ([facility] Red Blood Count 5.08 10 4.00-5.40 [facility] ([facility] White Blood Count 7.7 10 4.0-10.0 [facility] ([facility] Hematocrit 48.0 % 36.0-47.0 [facility] ([facility] Mean Corpuscular Volume 94.5 fl 80.0-96.0 M EDENT ([facility]) Mean Corpuscular HGB Conc 32.3 g/dL 32.0-36.5 [facility] ([facility]) Mean Corpuscular Hemoglobin 30.5 pg 27.0-33.0 [facility] ([facility]) Red Cell Distribution Width 12.6 % 11.5-14.5 [facility] ([facility]) Lymph % 30.6 % 24.0-44.0 [facility] ([facility] Neutrophils % 53.6 % 36.0-66.0 [facility] Platelet Count, Automated 251 10 150-450 [facility] ([facility]) Baso % 1.4 % 0.0-1.0 [facility] ([facility] Eos % 3.4 % 0.0-3.0 [facility] ([facility]) [place] % 10.4 % 2.0-8.0 [facility] ([facility] Neutrophils # 4.1 10 1.5-8.5 [facility] ([facility]) Immature Granulocyte % 0.6 % 0-3.0 [facility] ([facility]) Nucleated Red Blood Cell % 0.0 % 0-0 [facility] ([facility]) Eos # 0.3 10 0.0-0.5 [facility] ([facility] Lymph # 2.4 10 1.5-5.0 [facility] ([facility] [place] # 0.8 10 0.0-0.8 [facility] ([facility] Baso # 0.1 10 0.0-0.2 [facility] ([facility]) ID Date Data Source [id number] 12/17/2020 02:23:00 PM EDT [facility] ([facility]) Name Value Range Interpretation Code Description Data Patrizia rce(s) Supporting Document(s) Platelets [#/volume] in Blood by Automated count 255 10 150-450 [facility] ([facility]) Prothrombin time (PT) Laboratory test result [facility] ([facility]) ID Date Data Source [id number] 12/17/2020 02:23:00 PM EDT [facility] ([facility]) Name Value Range Interpretation Code Description Data Patrizia rce(s) Supporting Document(s) Inr 0.94 [facility] ([facility]) THERAPUTIC HUMAN INR VALUES INDICATIONS NORMAL RANGES PROPHYLAXIS/TREATMENT OF: VENOUS THROMBOSIS 2.0-3.0 PULMONARY EMBOLISM 2.0-3.0 PREVENTION OF SYSTEMIC EMBOLISM FROM: TISSUE HEART VALVES 2.0-3.0 ACUTE MYOCARDIAL INFARCTION 2.0-3.0 VALVULAR HEART DISEASE 2.0-3.0 ATRIAL FIBRILLATION 2.0-3.0 MECHANICAL VALVES(HIGH RISK) 2.5-3.5 RECURRENT MYOCARDIAL INFARCTION 2.5-3.5 Prothrombin Time 12.9 s 12.7-14.5 [facility] Partial Thromboplastin Time 37.8 s 25.9-37.0 [facility] ([facility]) ID Date Data Source [id number] 03/18/2020 12:30:00 PM EST [facility] Name Value Range Interpretation Code Description Data Patrizia rce(s) Supporting Document(s) Coronavirus 2019 Nasopharygeal Laboratory test result [facility] ([facility]) This nucleic acid amplification test was developed and its performance characteristics determined by [facility]. Nucleic acid amplification tests include PCR and TMA. This test has not been FDA cleared or approved. This test has been authorized by FDA under an Emergency Use Authorization (EUA). This test is only authorized for the duration of time the declaration that circumstances exist justifying the authorization of the emergency use of in vitro diagnostic tests for detection of SARS-CoV-2 virus and/or diagnosis of COVID-19 infection under section 564(b)(1) of the Act, 21 U.S.C. 360bbb-3 (b) (1), unless the authorization is terminated or revoked sooner. When diagnostic testing is negative, the possibility of a false negative result should be considered in the context of a patient's recent exposures and the presence of clinical signs and symptoms consistent with COVID-19. An individual without symptoms of COVID-19 and who is not shedding SARS-CoV-2 virus would expect to have a negative (not detected) result in this assay. Performed at: [facility] [id number] Trimming Cutter Machine: Jodi Tanner MD, Phone: [phone] Not Detected ID Date Data Source [id number] 03/18/2020 12:30:00 PM [facility] Name Value Range Interpretation Code Description Data Patrizia rce(s) Supporting Document(s) SARS coronavirus 2 RNA [facility] This lab was ordered by [facility] and reported by [facility]. Procedure Social History Code Duration Value Status Description Data Source(s ) Smoking 12/08/2020 12:00:00 AM EDT Current Smoker completed Curre nt Smoker eCW1 ([facility]) Smoking 12/08/2020 12:00:00 AM EDT Current Smoker completed Curre nt Smoker eCW1 ([facility]) Smoking 12/08/2020 12:00:00 AM EDT Current Smoker completed Curre nt Smoker eCW1 ([facility]) Smoking 11/03/2020 12:00:00 AM EDT Current Smoker completed Curre nt Smoker eCW1 ([facility]) Smoking 07/06/2020 12:00:00 AM EST Current Smoker completed Curre nt Smoker eCW1 ([facility]) Smoking 07/06/2020 12:00:00 AM EST Current Smoker completed Curre nt Smoker eCW1 ([facility]) Smoking 07/06/2020 12:00:00 AM EST Current Smoker completed Curre nt Smoker eCW1 ([facility]) Vital Signs ID Date Data Source UNK Name Value Range Interpretation Code Description Data Source(s) Body weight 256.0 [lb_av] 256.0 [lb_av] eCW1 ([facility]) Body height 66 [in_i] 66 [in_i] eCW1 ([facility]) Body mass index (BMI) [Ratio] 41.31 kg/m2 41.31 kg/m2 W1 ([facility]) Heart rate 88 /min 88 /min eCW1 ([facility]) Respiratory rate 20 /min 20 /min W1 ([facility]) Body temperature 97 [degF] 97 [degF] eCW1 ([facility]) Systolic blood pressure 120 mm[Hg] 120 mm[Hg] e CW1 ([facility]) Diastolic blood pressure 80 mm[Hg] 80 mm[Hg] eCW1 ([facility]) Body weight 256.0 [lb_av] 256.0 [lb_av] eCW1 ([facility]) Body height 66 [in_i] 66 [in_i] eCW1 ([facility]) Body mass index (BMI) [Ratio] 41.31 kg/m2 41.31 kg/m2 eCW1 ([facility]) Heart rate 66 /min 66 /min eCW1 ([facility]) Respiratory rate 20 /min 20 /min eCW1 ([facility]) Body temperature 98 [degF] 98 [degF] eCW1 ([facility]) Systolic blood pressure 140 mm[Hg] 140 mm[Hg] e CW1 ([facility]) Diastolic blood pressure 80 mm[Hg] 80 mm[Hg] eCW1 ([facility]) Body weight 261.0 [lb_av] 261.0 [lb_av] eCW1 ([facility]) Body height 66 [in_i] 66 [in_i] eCW1 ([facility]) Body mass index (BMI) [Ratio] 42.12 kg/m2 42.12 kg/m2 eCW1 ([facility]) Heart rate 72 /min 72 /min eCW1 ([facility]) Respiratory rate 18 /min 18 /min eCW1 ([facility]) Body temperature 96.8 [degF] 96.8 [degF] eCW1 ( [facility]) Systolic blood pressure 130 mm[Hg] 130 mm[Hg] e CW1 ([facility]) Diastolic blood pressure 80 mm[Hg] 80 mm[Hg] eCW1 ([facility]) Patient Treatment Plan of Care Planned Activity Planned Date Details Description Data Source (s) Fluconazole 150 MG Oral Tablet 12/08/2020 12:00:00 AM EDT eCW1 ([facility]) Levofloxacin 500 MG Oral Tablet 12/08/2020 12:00:00 AM EDT eCW1 ([facility]) Fluconazole 150 MG Oral Tablet 12/08/2020 12:00:00 AM EDT eCW1 ([facility]) Levofloxacin 500 MG Oral Tablet 12/08/2020 12:00:00 AM EDT eCW1 ([facility]) Fluconazole 150 MG Oral Tablet 12/08/2020 12:00:00 AM EDT eCW1 ([facility]) Levofloxacin 500 MG Oral Tablet 12/08/2020 12:00:00 AM EDT eCW1 ([facility]) Lactulose 667 MG/ML Oral Solution 11/03/2020 12:00:00 AM EDT eCW1 ([facility]) gabapentin 100 MG Oral Capsule 11/02/2020 12:00:00 AM EDT eCW1 ([facility]) gabapentin 100 MG Oral Capsule 11/02/2020 12:00:00 AM EDT eCW1 ([facility]) gabapentin 100 MG Oral Capsule 11/02/2020 12:00:00 AM EDT eCW1 ([facility]) gabapentin 100 MG Oral Capsule 11/02/2020 12:00:00 AM EDT eCW1 ([facility]) Alendronic acid 70 MG Oral Tablet [Fosamax] 07/06/2020 12:00:00 AM EST eCW1 ([facility]) Alendronic acid 70 MG Oral Tablet [Fosamax] 07/06/2020 12:00:00 AM EST eCW1 ([facility]) Alendronic acid 70 MG Oral Tablet [Fosamax] 07/06/2020 12:00:00 AM EST eCW1 ([facility])
[2021-04-25] MEDS ORDERED: ASPIRIN 81 MG CHEW TABLET PO ONE (04:05)
[2021-04-25] MEDS: NITROGLYCERIN 0.4 MG SUBL TABLET SL PRN ×3 (04:08→04:28)
[2021-04-25 04:11] LABS: BASO # 0.1 10^3/uL (0.0-0.2); BASO % 1.1 % (0.0-1.0); EOS # 0.3 10^3/uL (0.0-0.5); HEMATOCRIT 45.2 % (36.0-47.0); HEMOGLOBIN 15.2 g/dl (12.0-15.5); LYMPH # 2.9 10^3/uL (1.5-5.0); LYMPH % 27.4 % (24.0-44.0); MEAN CORPUSCULAR HEMOGLOBIN 31.9 pg (27.0-33.0); MEAN CORPUSCULAR HGB CONC 33.6 g/dl (32.0-36.5); MEAN CORPUSCULAR VOLUME 94.8 fl (80.0-96.0); MONO # 0.8 10^3/uL (0.0-0.8); MONO % 7.8 % (2.0-8.0); NEUTROPHILS # 6.5 10^3/uL (1.5-8.5); NEUTROPHILS % 60.2 % (36.0-66.0); PLATELET COUNT, AUTOMATED 262 10^3/uL (150-450); RED BLOOD COUNT 4.77 10^6/uL (4.00-5.40); WHITE BLOOD COUNT 10.7 10^3/uL (4.0-10.0)
[2021-04-25 04:23] LABS: INR 0.91; PROTHROMBIN TIME 12.7 SECONDS (12.7-14.5)
[2021-04-25] MEDS ORDERED: MORPHINE 2 MG/ML 1ML VIAL (J2270) IV ONE ×2 (04:35→05:25)
[2021-04-25 04:41] LABS: BLOOD UREA NITROGEN 11 MG/DL (7-18); CALCIUM LEVEL 9.1 MG/DL (8.8-10.2); CARBON DIOXIDE LEVEL 25 MEQ/L (21-32); CHLORIDE LEVEL 105 MEQ/L (98-107); CREATININE FOR GFR 0.68 MG/DL (0.55-1.30); GLOMERULAR FILTRATION RATE > 60.0 (>45); GLUCOSE, FASTING 100 MG/DL (70-100); POTASSIUM SERUM 4.4 MEQ/L (3.5-5.1); SODIUM LEVEL 139 MEQ/L (136-145)
[2021-04-25 04:43] LABS: CK-MB VALUE MASS 6.8 NG/ML (<3.6); MB/CK RELATIVE INDEX 6.02 (< OR =4)
[2021-04-25] MEDS ORDERED: HEPARIN SOD (PORCINE) 5000UNITS/ML 1ML VIAL/SYRINGE IV ONE (04:45)
[2021-04-25] MEDS ORDERED: HEPARIN DRIP 25,000 UNITS in IV 1 EA IV SCH (04:45)
--- OUTSIDE RECORDS SUMMARY | 2021-04-25 04:48 | CCD ---
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 If you continue you may have access to information: Regarding HIV / AIDS; Provided by facilities licensed or operated by the [facility] Office of Mental Health; or Provided by the [facility] Office for People With Developmental Disabilities. If such information is present, then the following [facility] mandated warning applies: This information has been [...] law may result in a fine or mcc sentence or both. A general authorization for the release of medical or other information is NOT sufficient authorization for further disc losure. Family History Family Member Name Family Member Gender Family Member Status Date o f Status Description Data Source(s) Unknown Unknown Problem MEDENT ([facility]) Unknown Female Problem MED[facility] ([facility]) Encounters Encounter Providers Location Date Indications Data Source(s ) OFFICE OUTPATIENT VISIT 15 MINUTES Attender: Lauren HENDERSON Physical Therapy 02/11/2021 03:45:00 PM EDT MEDENT ([facility]) Office Visit Attender: Jesus Ogden MD Physical Therap y 02/01/2021 11:00:00 AM EDT [facility] ([facility]) [place] [address] [facility] [place] [address] 01/01/2021 12:00:00 AM EDT eCW1 ([facility]) Unknown [address] [facility] [address] 12/17/2020 12:00:00 AM EDT eCW1 ([facility]) Outpatient [address] [facility] [address] 12/08/2020 12:00:00 AM EDT eCW1 ([facility]) Outpatient [address] [facility] [address] 11/02/2020 12:00:00 AM EDT eCW1 ([facility]) Unknown [address] [facility] [address] 10/28/2020 12:00:00 AM EDT eCW1 ([facility]) Unknown [address] [facility] [address] 10/27/2020 12:00:00 AM EDT eCW1 ([facility]) OFFICE OUTPATIENT VISIT 15 MINUTES Attender: Lauren HENDERSON Physical Therapy 10/22/2020 02:45:00 PM EDT MEDENT ([facility]) Office Visit Attender: SUGAR HENDERSON Physical Therapy 06/2020 04:00:00 PM EST [facility] ([facility]) Outpatient [address] [facility] [address] 07/06/2020 12:00:00 AM EST eCW1 ([facility]) OFFICE OUTPATIENT VISIT 15 MINUTES Attender: Jesus sanon MD Physical Therapy 05/01/2020 01:00:00 PM EST MEDENT ([facility]) OFFICE OUTPATIENT VISIT 15 MINUTES Attender: SUGAR HENDESRON Ph ysical Therapy 04/08/2020 02:30:00 PM EST MEDENT ([facility]) Immunizations Vaccine Date Status Description Data Source(s) COVID-19 dose #2 given elsewhere Unspecified 08/24/2020 11:0 9:00 AM EDT completed eCW1 ([facility]) COVID-19 dose #2 given elsewhere Unspecified 08/24/2020 11:0 9:00 AM EDT completed eCW1 ([facility]) COVID-19 dose #2 given elsewhere Unspecified 08/24/2020 11:0 9:00 AM EDT completed eCW1 ([facility]) COVID-19 dose #2 given elsewhere Unspecified 08/24/2020 11:0 9:00 AM EDT completed eCW1 ([facility]) COVID-19 VACCINE Moderna 08/24/2020 12:00:00 AM EDT completed [employer] Vaccine Series Complete: YESThis Data wa s Submitted to [facility] Via [employer]. COVID-19 VACCINE, MRNA-1273, LNP-S (MODERNA)/PF 08/24/2020 1 2:00:00 AM EDT completed [facility] COVID-19 dose #1 given elsewhere Unspecified 07/24/2020 11:0 8:00 AM EST completed eCW1 ([facility]) COVID-19 dose #1 given elsewhere Unspecified 07/24/2020 11:0 8:00 AM EST completed eCW1 ([facility]) COVID-19 dose #1 given elsewhere Unspecified 07/24/2020 11:0 8:00 AM EST completed eCW1 ([facility]) COVID-19 dose #1 given elsewhere Unspecified 07/24/2020 11:0 8:00 AM EST completed eCW1 ([facility]) COVID-19 VACCINE Moderna 07/24/2020 12:00:00 AM EST completed [employer] Vaccine Series Complete: NOThis Data was Submitted to [facility] Via [employer]. COVID-19 VACCINE, MRNA-1273, LNP-S (MODERNA)/PF 07/24/2020 1 [...] 1.0 {tablet} active levoFLOXacin 500 MG eCW1 ([facility]) Fluconazole 150 MG Oral Tablet Fluconazole 150 MG 12/08/2020 12:00: 00 AM EDT 1.0 {tablet} active Fluconazole 150 MG eCW1 ([facility]) 1 gram 12/08/2020 12:00:00 AM EDT tablet [...] 1.0 {tablet} active levoFLOXacin 500 MG eCW1 ([facility]) Fluconazole 150 MG Oral Tablet Fluconazole 150 MG 12/08/2020 12:00: 00 AM EDT 1.0 {tablet} active Fluconazole 150 MG eCW1 ([facility]) 1 gram 12/08/2020 12:00:00 AM EDT tablet 120 TAKE ONE TABLET BY MOUTH FOUR TIMES A DAY ON AN EMPTY STOMACH NEEDED TAKE ONE TABLET BY MOUTH FOUR TIMES A DAY ON AN EMPTY STOMACH NEEDED SOLD: 12/08/2020 [facility] Levofloxacin 500 MG Oral Tablet levoFLOXacin 500 MG levoFLOX acin 500 MG 12/08/2020 12:00:00 AM EDT 1.0 {tablet} active levoFLOXacin 500 MG eCW1 ([facility]) 500 mg 12/08/2020 12:00:00 AM EDT tablet 7 TAKE ONE TABLET BY MOUTH EVERY DAY FOR 7 DAYS TAKE ONE TABLET BY MOUTH EVERY DAY FOR 7 DAYS SOLD: 12/08/2020 [facility] Fluconazole 150 MG Oral Tablet Fluconazole 150 MG 12/08/2020 12:00: 00 AM EDT 1.0 {tablet} active Fluconazole 150 MG eCW1 ([facility]) 100 mcg 11/16/2020 12:00:00 AM EDT tablet [...] 15.0 {ml} active Lactulose 10 GM/15ML eCW1 ([facility]) Lactulose 667 MG/ML Oral Solution Lactulose 10 GM/15ML Lactu lose 10 GM/15ML 11/03/2020 12:00:00 AM EDT 15.0 {ml} active Lactulose 10 GM/15ML eCW1 ([facility]) 100 mg 11/03/2020 12:00:00 AM EDT capsule 30 TAKE 1 CAPSULE BY MOUTH BEFORE BEDTIME DIRECTED TAKE 1 CAPSULE BY MOUTH BEFORE BEDTIME DIRECTED GAEL [facility] Lactulose 667 MG/ML Oral Solution Lactulose 10 GM/15ML Lactu lose 10 GM/15ML 11/03/2020 12:00:00 AM EDT 15.0 {ml} active Lactulose 10 GM/15ML eCW1 ([facility]) Lactulose 667 MG/ML Oral Solution Lactulose 10 GM/15ML Lactu lose 10 GM/15ML 11/03/2020 12:00:00 AM EDT 15.0 {ml} active Lactulose 10 GM/15ML eCW1 ([facility]) 100 mg 11/03/2020 12:00:00 AM EDT capsule [...] {capsule} active G abapentin 100 MG eCW1 ([facility]) gabapentin 100 MG Oral Capsule Gabapentin 100 MG Gabapentin 100 MG 11/02/2020 12:00:00 AM EDT 1.0 {capsule} active G abapentin 100 MG eCW1 ([facility]) gabapentin 100 MG Oral Capsule Gabapentin 100 MG Gabapentin 100 MG 11/02/2020 12:00:00 AM EDT 1.0 {capsule} active G abapentin 100 MG eCW1 ([facility]) gabapentin 100 MG Oral Capsule Gabapentin 100 MG Gabapentin 100 MG 11/02/2020 12:00:00 AM EDT 1.0 {capsule} active G abapentin 100 MG eCW1 ([facility]) 60 mg 10/28/2020 12:00:00 AM EDT capsule,delayed [...] BY MOUTH TWICE A DAY SOLD: 01/25/2021 [facility] 15 mg 10/13/2020 12:00:00 AM EDT tablet extended release 90 TAKE ONE TABLET BY MOUTH EVERY 8 HOURS MAXIMUM DAILY DOSE = 3 TAKE ONE TABLET BY MOUTH EVERY 8 HOURS MAXIMUM DAILY DOSE = 3 SOLD: 10/15/2020 [facility] 5 mg 10/13/2020 12:00:00 AM EDT tablet 90 TAKE ONE TABLET BY MOUTH THREE TIMES A DAY NEEDED FOR PAIN MAXIMUM DAILY DOSE = 3 TAKE ONE TABLET BY MOUTH THREE TIMES A DAY NEEDED FOR PAIN MAXIMUM DAILY DOSE = 3 SOLD: 10/15/2020 [facility] tizanidine 2 MG Oral Tablet TIZANIDINE HCL 10/06/2020 12:00:00 AM EDT tablet 90 TAKE 1 TO 2 TABLETS BY MOUTH THREE TIMES A DAY . MAXIM UM DAILY DOSE = 6 TAKE 1 TO 2 TABLETS BY MOUTH THREE TIMES A DAY . MAXIMUM DAILY DOSE = 6 SOLD: 11/09/2020 [facility] tizanidine 2 MG Oral Tablet TIZANIDINE HCL 10/06/2020 12:00:00 AM EDT tablet 90 TAKE 1 TO 2 TABLETS BY MOUTH THREE TIMES A DAY . MAXIM UM DAILY DOSE = 6 TAKE 1 TO 2 TABLETS BY MOUTH THREE TIMES A DAY . MAXIMUM DAILY DOSE = 6 SOLD: 12/08/2020 [facility] tizanidine 2 MG Oral Tablet TIZANIDINE HCL [...] CAPSULE BY MOUTH EVERY DAY SOLD: 08/14/2020 [facility] 70 mg 07/07/2020 12:00:00 AM EST [...] AM EST active Fosamax 70 MG eCW1 ([facility]) Alendronic acid 70 MG Oral Tablet [Fosamax] Fosamax 70 MG Fo samax 70 MG 07/06/2020 12:00:00 AM EST active Fosamax 70 MG eCW1 ([facility]) Alendronic acid 70 MG Oral Tablet [Fosamax] Fosamax 70 MG Fo samax 70 MG 07/06/2020 12:00:00 AM EST active Fosamax 70 MG eCW1 ([facility]) 100 mcg 06/23/2020 12:00:00 AM EST tablet [...] DAILY DOSE = 3 TABLETS SOLD: 03/14/2020 [facility] tizanidine 2 MG Oral Tablet TIZANIDINE HCL [...] type / Coverage type Policy ID Covered alliance party ID Covered alliance party's relationship to diamond Policy Diamond Plan Information [place] [id number] SP [id number] [employer] [place] P[place] 302/307 [id number] SP [id number] [employer] [place] 302/307 [id number] SP [id number] [employer] ([place]) Workers Compensation [id number] 2.840.1.716475.3.227.99.991.224932.0 Self [id number] [employer] ([employer]) Workers Compensation [id number] 2.16840.1.663337.3.227.99.991.315080.0 Self [id number] [employer] ([place]) Workers Compensation [id number] 2.840.1.480884.3.227.99.991.835539.0 Self [id number] [employer] ([place]) Workers Compensation [id number] 2.840.1.290703.3.227.99.991.364172.0 Self [id number] [employer] ([place]) Workers Compensation [id number] 2.840.1.841230.3.227.99.991.357004.0 Self [id number] [employer] ([employer]) Workers Compensation [id number] 2.840.1.778577.3.227.99.991.710375.0 Self [id number] [employer] ([employer]) Workers Compensation [id number] 2.16840.1.954582.3.227.99.991.790901.0 Self [id number] [employer] ([employer]) Workers Compensation [id number] 2.840.1.432226.3.227.99.991.251418.0 Self [id number] [employer] ([employer]) Workers Compensation [id number] 2.16.840.1.742958.3.227.99.991.275999.0 Self [id number] [employer] ([place]) Workers Compensation [id number] 2.16.840.1.529232.3.227.99.991.494929.0 Self [id number] [employer] ([place]) Workers Compensation [id number] 2.16.840.1.078901.3.227.99.991.287480.0 Self [id number] [employer] ([employer]) Workers Compensation [id number] 2.16.840.1.059688.3.227.99.991.836806.0 Self [id number] [employer] ([employer] Workers Compensation [id number] 2.16.840.1.776965.3.227.99.991.892709.0 Self [id number] [employer] [place]) Workers Compensation 2.16.840.1.458095.3.227.99.991.567690.0 Self [employer] ([place]) Workers Compensation [id number] 2.16.840.1.672460.3.227.99.991.716539.0 Self [id number] [employer] ([employer] Workers Compensation [id number] 2.16.840.1.831849.3.227.99.991.091429.0 Self [id number] [employer] ([employer] Workers Compensation [id number] Self [id number] [employer] ([employer]) Workers Compensation [id number] 2.16.840.1.297558.3.227.99.991.981458.0 Self [id number] [employer] ([employer]) Workers Compensation [id number] 2.16.840.1.066219.3.227.99.991.037067.0 Self [id number] [employer] ([employer] Workers Compensation [id number] 2.16.840.1.638607.3.227.99.991.328776.0 Self [id number] [employer] ([employer] Workers Compensation [id number] 2.16.840.1.459868.3.227.99.991.329925.0 Self [id number] [employer] ([employer] Workers Compensation [id number] 2.16.840.1.497855.3.227.99.991.173518.0 Self [id number] [employer] Workers Compensation [id number] 2.16840.1.914410.3.227.99.991.297051.0 Self [id number] [employer] ([employer] Workers Compensation [id number] Self [id number] [employer] ([employer]) Workers Compensation [id number] 2.16840.1.535540.3.227.99.991.847470.0 Self [id number] [employer] ([employer]) Workers Compensation [id number] 2.16840.1.182255.3.227.99.991.461762.0 Self [id number] [employer] ([employer]) Workers Compensation [id number] 2.16840.1.159413.3.227.99.991.688656.0 Self [id number] [employer] ([employer]) Workers Compensation [id number] 2.16840.1.840753.3.227.99.991.928045.0 Self [id number] [employer] ([employer]) Workers Compensation [id number] 2.16.840.1.332733.3.227.99.991.022916.0 Self [id number] [employer] ([employer]) Workers Compensation [id number] 2.16.840.1.042734.3.227.99.991.556658.0 Self [id number] [employer] ([employer]) Workers Compensation [id number] 2.16.840.1.824588.3.227.99.991.789430.0 Self [id number] [place] [employer] [id number] 2.16840.1.177637.3.227.99.991.094397.0 Self [id number] [place] [employer] [id number] 2.840.1.610353.3.227.99.991.770485.0 Self [id number] [facility] [place] [employer] [id number] 2.16840.1.694924.3.227.99.991.092469.0 Self [id number] [facility] [place] [employer] [id number] 2.16840.1.651192.3.227.99.991.756592.0 Self [id number] [facility] [place] [employer] [id number] 2.16840.1.037009.3.227.99.991.669354.0 Self [id number] [place] [employer] [id number] 2.16840.1.912887.3.227.99.991.457282.0 Self [id number] [facility] [place] [employer] [id number] Self [id number] [employer] [place] [employer] [id number] 2.16.840.1.960516.3.227.99.991.429832.0 Self [id number] [facility] [place] [facility] [id number] 2.16.840.1.783308.3.227.99.991.833080.0 Self [id number] [facility] [place] [employer] [id number] 2.16.840.1.280613.3.227.99.991.632588.0 Self [id number] [facility] [place] [facility] [id number] 2.16840.1.014885.3.227.99.991.980553.0 Self [id number] [facility] [place] [facility] [id number] Self [id number] [facility] [place] [facility] [id number] 2.16840.1.504936.3.227.99.991.179440.0 Self [id number] [facility] [place] [employer] [id number] 2.16.840.1.764233.3.227.99.991.345754.0 Self [id number] [place] [employer] [id number] 2.16.840.1.442969.3.227.99.991.728865.0 Self [id number] [facility] [place] [employer] [id number] 2.16.840.1.474312.3.227.99.991.795902.0 Self [id number] [place] [facility] Part B [id number] 2.16.840.1.741210.3.227.99.991.960045.0 Self [id number] [facility] [place] [facility] Part B [id number] 2.16.840.1.631447.3.227.99.991.271632.0 Self [id number] [facility] [place] [facility] Part B [id number] 2.16.840.1.180612.3.227.99.991.933102.0 Self [id number] [facility] [place] [facility] Part B [id number] 2.16.840.1.621420.3.227.99.991.943674.0 Self [id number] [facility] [place] [facility] Part B [id number] 2.16.840.1.920265.3.227.99.991.560455.0 Self [id number] [facility] [place] [facility] Part B [id number] 2.16.840.1.435006.3.227.99.991.692749.0 Self [id number] [employer] ([employer]) Workers Compensation [id number] 2.16.840.1.527389.3.227.99.991.400755.0 Self [id number] [employer] ([employer]) Workers Compensation [id number] MRN.[id number] Self [id number] [employer] ([employer]) Workers Compensation [id number] Self [id number] [employer] ([employer]) Workers Compensation [id number] Self [id number] [employer] ([employer]) Workers Compensation [id number] Self [id number] [employer] ([employer]) Workers Compensation [id number] 2.16840.1.133500.3.227.99.991.353042.0 Self [id number] [employer] ([employer]) Workers Compensation [id number] 2.16840.1. 196166.3.227.99.991.755794.0 Self [id number] [employer] ([employer]) Workers Compensation [id number] 2.16840.1.259529.3.227.99.991.165458.0 Self [id number] [employer] ([place]) Workers Compensation [id number] 2.16840.1. 032505.3.227.99.991.943040.0 Self [id number] [employer] ([employer]) Workers Compensation [id number] 2.16840.1.585171.3.227.99.991.784874.0 Self [id number] [employer] ([employer]) Workers Compensation [id number] 2.16840.1.355250.3.227.99.991.867767.0 Self [id number] [employer] ([employer]) Workers Compensation [id number] 2.16840.1.022589.3.227.99.991.159350.0 Self [id number] [employer] ([employer]) Workers Compensation [id number] 2.16840.1.712606.3.227.99.991.190687.0 Self [id number] [employer] ([employer] Workers Compensation [id number] 2.16840.1.449043.3.227.99.991.735283.0 Self [id number] [employer] ([employer]) Workers Compensation [id number] 2.16840.1.229402.3.227.99.991.485542.0 Self [id number] [employer] ([employer] Workers Compensation [id number] 2.16840.1.493173.3.227.99.991.954647.0 Self [id number] [employer] ([employer] Workers Compensation [id number] 2.16840.1.227940.3.227.99.991.382760.0 Self [id number] [employer] ([employer] Workers Compensation [id number] 2.840.1.273828.3.227.99.991.580485.0 Self [id number] [employer] ([employer] Workers Compensation [id number] 2.16840.1.653019.3.227.99.991.977894.0 Self [id number] [employer] ([employer] Workers Compensation [id number] 2.840.1.514787.3.227.99.991.058086.0 Self [id number] [employer] ([employer] Workers Compensation [id number] 2.840.1.520966.3.227.99.991.689413.0 Self [id number] [employer] ([employer] Workers Compensation [id number] 2.16840.1.719293.3.227.99.991.436507.0 Self [id number] [employer] ([employer]) Workers Compensation [id number] 2.16840.1.867576.3.227.99.991.125967.0 Self [id number] [employer] ([employer]) Workers Compensation [id number] 2.16.840.1.903081.3.227.99.991.003521.0 Self [id number] [employer] ([employer]) Workers Compensation [id number] 2.16.840.1.559027.3.227.99.991.009083.0 Self [id number] [employer] ([employer]) Workers Compensation [id number] 2.16.840.1.664692.3.227.99.991.683615.0 Self [id number] [employer] ([employer]) Workers Compensation [id number] 2.16.840.1.962658.3.227.99.991.435468.0 Self [id number] [employer] ([place] Workers Compensation [id number] 2.16.840.1.653599.3.227.99.991.203099.0 Self [id number] [employer] ([employer]) Workers Compensation [id number] 2.16.840.1.258961.3.227.99.991.423733.0 Self [id number] [employer] ([employer] Workers Compensation [id number] 2.16.840.1.692470.3.227.99.991.779143.0 Self [id number] [employer] ([employer] Workers Compensation [id number] 2.16.840.1.572904.3.227.99.991.780593.0 Self [id number] [employer] ([employer] Workers Compensation [id number] 2.16.840.1.049547.3.227.99.991.576626.0 Self [id number] [employer] (wc) Workers Compensation [id number] 2.16.840.1.574314.3.227.99.991.342194.0 Self [id number] [facility] [id number] SP [id number] [facility] [id number] SP [id number] ANSI-Medicaid [id number] ANSI-Medicaid [id number] [facility] B [id number] 2.16.840.1.272064.3.227.99.991.908336.0 Self [id number] OTHER WORKERS COMPENSATION WCB# [id number] SP WCB# [id number] EMEDNY [id number] SP [id number] [employer]-Commercial [id number] ANSI-Commercial [id number] [facility] B [id number] 2.16.840.1.995231.3.227.99.991.815663.0 Self [id number] [facility] [id number] SP [id number] [place] [id number] SP [id number] ANSI-Medicaid [id number] ANSI-Commercial [id number] ANSI-Commercial [id number] OTHER WORKERS COMPENSATION [id number] SP [id number] ANSI-Commercial [id number] ANSI-Medicaid [id number] ANSI-Commercial [id number]-hd1f-40nm-8p05-[id number]-li1x-20ur-7p70-[id number] ANSI-Commercial [id number]-[id number] seoz7396-3418-6299-[id number] ANSI-Commercial 20i0igg5-970i-3o26-h63c-[id number]-4z73-[id number] [facility] Part B [id number] Self [id number] [facility] [id number] S [id number] ANSI-Medicaid [id number] ANSI-Medicaid [id number] [facility] Med[employer] Part B [id number] Self [id number] [facility] [id number] S S [id number] ANSI-Medicaid [id number] ANSI-Commercial [id number] [id number] ANSI-Commercial 89xm752p-382t-6dm2-40u7-994820ies1n8 [id number]-491u-5el1-79s2-659680iam5y6 ANSI-Commercial 00135zf2-ve7h-455t-47u4-584389ryu1j2 [id number]-th9y-198u-06t1-500441qij0g5 [facility] [id number] 2..1.612233.3.227.99.991.016331.0 Self [id number] MEDICARE [id number] SP [id number] [facility] Health Maintenance Organization (HMO) [id number] 2..1.469015.3.227.99.1767.4650.0 Self [id number] [facility] [id number] 2..1.926152.3.227.99.991.816103.0 Self [id number] [employer] P UNAVAILABLE [id number] S UNAV AILABLE ANSI-Commercial ip3ecg4s-[id number]-086p-3018-4404-[id number] ANSI-Commercial yy8uab88-x0lh-652j-[id number] ot8vhy79-e1hk-996e-8960-1dlu84a3201e [facility] B [id number] 2..1.390195.3.227.99.991.837582.0 Self [id number] [employer] MGMT [id number] SP [id number] ANSI-Medicaid [id number] ANSI-Commercial [id number] ANSI-Medicaid [id number] ANSI-Commercial [id number] ANSI-Medicaid [id number] ANSI-Medicaid [id number] [facility] Plan Medigap Part B [id number] Self [id number] [employer] [id number] SP WCST [id number] ANSI-Commercial [id number] ANSI-Commercial [id number] [facility] Plan Medigap Part B [id number] Self [id number] [place] [id number] SP [id number] G [facility] Plan Medigap Part B [id number] Self [id number] [facility] ([facility] [id number] Self [id number] [facility] [id number] Self [id number] [facility] [id number] SP [id number] [facility] ([facility] [id number] Self [id number] ANSI-Commercial [id number] [facility] Part B [id number] Self [id number] [facility] [id number] SP [id number] ANSI-Medicaid [id number] ANSI-Commercial [id number] [facility] Part [facility] [id number] Self [id number] [facility] [id number] SP [id number] ANSI-Commercial [id number] ANSI-Medicaid [id number] [facility] B [id number] Self [id number] [place] PPO 302/307 [id number] SP [id number] ANSI-Commercial [id number] ANSI-Medicaid [id number] [facility] [id number] Self [id number] [employer] [place] PPO 302/307 [id number] SP [id number] [facility] [id number] S 1 [id number] [facility] O [id number] S [id number] 76 ANSI-Commercial [id number] ANSI-Commercial [id number] [facility] B [id number] Self [id number] [employer] [id number] SP [id number] [facility] B [id number] Self [id number] [employer] MGMT [id number] SP [id number] [facility] Plan Medigap Part B [id number] Self [id number] FIRST [employer] MGMT [id number] SP [id number] [facility]) O [id number] S [id number] [facility] O [id number] S [id number] [facility] O UNAVAILABLE [id number] S UN AVAILABLE [facility] Plan Commercial [id number] Self [id number] [employer] R[employer] MGMT SP [id number] BCBS [place] PPO 302/307 [id number] SP [id number] [facility] O [id number] S 2 [id number] [employer]BS B [id number] S SZO [id number] [employer] O [id number] S [id number] [facility] Plan Commercial [id number] Self [id number] [employer] O [id number] S [id number] [facility] [id number] SP [id number] [employer] O [id number] S [id number] [facility] Plan Commercial [id number] Self [id number] [employer] MGMT UNAVAILABLE SP UNAVAILABLE MEDICAID [id number] SP [id number] Workers Comp Workers Compensation [id number] Self [facility]) O [id number] S [id number] FIRST [employer]ARA RISK MGMT [id number] SP [id number] BCBS [place] PPO 302/307 [id number] SP [id number] MEDICAID [id number] SP [id number] BCBS/[employer] Commercial [id number] Self MEDICAID [id number] S [id number] BS [place] Commercial [id number] Self [facility](MCA[facility]) O [id number] S [id number] EMEDNY [id number] SP [id number] ANSI-Commercial [id number] ANSI-Commercial [id number] ANSI-Medicaid [id number] ANSI-Commercial [id number] ANSI-Commercial [id number] ANSI-Commercial [id number] ANSI-Commercial [id number] ANSI-Medicaid [id number] ANSI-Medicaid [id number] ANSI-[place] [id number] ANSI-Hypor[place] [id number] ANSI-Medicaid [id number] ANSI-Hypor[place] [id number] ANSI-[place] [id number] ANSI-Medicaid [id number] ANSI-[place]por[place] [id number] ANSI-[place] [id number] ANSI-[place] [id number] ANSI-Commercial [id number] ANSI-Medicaid [id number] ANSI-Medicaid [id number] ANSI-Commercial [id number] ANSI-Commercial [id number] ANSI-Medicaid [id number] ANSI-Commercial [id number] ANSI-Commercial [id number] OTHER WORKERS COMPENSATION [id number] SP [id number] ANSI-Medicaid [id number] ANSI-Commercial [id number] ANSI-Commercial [id number] Problems, Conditions, and Diagnoses Code Display Name Description Problem Type Effective Dates Data Source(s) K59.00 14944743 Constipation, unspecified constipation ty pe Problem 11/03/2020 12:00:00 AM EDT eCW1 ([facility]) Surgeries/Procedures Procedure Description Date Indications Data Source(s) OFFICE OUTPATIENT VISIT 15 MINUTES 02/11/2021 12:00:00 AM EDT [facility] ([facility] ) PHYSICIAN TELEPHONE EVALUATION 5-10 MIN 02/11/2021 12: 00:00 AM EDT [facility] ([facility] ) OFFICE OUTPATIENT VISIT 10 MINUTES 02/01/2021 12:00:00 AM EDT [facility] ([facility] ) PHYSICIAN TELEPHONE EVALUATION 5-10 MIN 02/01/2021 12: 00:00 AM EDT [facility] ([facility] ) PHYSICIAN TELEPHONE EVALUATION 5-10 MIN 02/01/2021 12: 00:00 AM EDT [facility] ([facility] ) NJX ANES&/STRD W/IMG TFRML EDRL LMBR/SAC 1 LVL 021 12:00:00 AM EDT [facility] ([facility] ) NJX ANES&/STRD W/IMG TFRML EDRL LMBR/SAC 1 LVL 021 12:00:00 AM EDT [facility] ([facility] ) Epidurography Radiological Supervision & Interpretation 01/25/2021 12:00:00 AM EDT [facility] ([facility] ) X-Ray Spine Lumbosacral Complete Inc Bending Views Min Of 6 10/22/2020 12:00:00 AM EDT [facility] ([facility] ) OFFICE OUTPATIENT VISIT 15 MINUTES 10/22/2020 12:00:00 AM EDT [facility] ([facility] ) PHYSICIAN TELEPHONE EVALUATION 5-10 MIN 07/14/2020 12: 00:00 AM EST [facility] ([facility] ) ARTHROCENTESIS ASPIR&/INJECTION MAJOR JT/BURSA 020 12:00:00 AM EST [facility] ([facility] ) Injec(S),Diag Or Therapeutic Agent, Paravertebral Lumber Or Sacr 03/23/2020 12:00:00 AM EST [facility] ([facility] ) Injec(S),Diag Or Therapeutic Agent, Paravertebral Lumber Or Sacr 03/23/2020 12:00:00 AM EST [facility] ([facility] ) Moderate Sedation Services; Same Phys Intl 15 Mins; PT >= 5 Years 03/23/2020 12:00:00 AM EST [facility] ([facility] ) Moderate Sedation Services; Same Phys Each Additional 15 Min s 03/23/2020 12:00:00 AM EST [facility] ([facility] ) Results ID Date Data Source [id number] 01/20/2021 09:25:00 AM EDT [facility] ([facility] ) Name Value Range Interpretation Code Description Data Patrizia rce(s) Supporting Document(s) Covid Rapid Testing Laboratory test result [facility] ([facility] ) ID Date Data Source [id number] 01/20/2021 12:00:00 AM EDT [facility] Name Value Range Interpretation Code Description Data Patrizia rce(s) Supporting Document(s) Covid Rapid Testing Negative [facility] This lab was ordered by [facility] and re ported by [facility]. ID Date Data Source [id number] 12/17/2020 02:23:00 PM EDT [facility] ([facility] ) Name Value Range Interpretation Code Description Data Patrizia rce(s) Supporting Document(s) Glucose, Fasting 92 mg/dL 70-100 [facility] ([facility] ) Blood Urea Nitrogen 9 mg/dL 7-18 [facility] (No [facility] ) Sodium Level 139 meq/L 136-145 [facility] ([facility] ) Glomerular Filtration Rate Laboratory test result [facility] ([facility] ) <content>Units are mL/min/1.73 m2</content>
<content></content>
<content>Chronic Kidney Disease Staging per NKF:</content>
<content></content>
<content>Stage I & II GFR >=60 Normal to Mildly Decreased</content>
<content>Stage III GFR 30- 59 Moderately Decreased</content>
<content>Stage IV GFR 15-29 Severely Decreased</content>
<content>Stage V GFR <15 Very Little GFR Left</content>
<content>ESRD GFR <15 on PREMIUM CANCELLATION CLERK</content>
<content></content> Creatinine For GFR 0.76 mg/dL 0.55-1.30 [facility] ([facility]) Carbon Dioxide Level 29 meq/L 21-32 [facility] ( [facility] Chloride Level 102 meq/L 98-107 [facility] ([facility] Potassium Serum 4.4 meq/L 3.5-5.1 [facility] ([facility]) Calcium Level 9.5 mg/dL 8.8-10.2 [facility] ([facility]) Anion Gap 8 meq/L 8-16 [facility] Ast/Sgot 32 U/L 7-37 [facility] ([facility] Alkaline Phosphatase 81 U/L 45-117 [facility] ([facility]) Alt/SGPT 36 U/L 12-78 [facility] ([facility] Total Protein 7.0 GM/DL 6.4-8.2 [facility] ([facility]) Bilirubin,Total 0.5 mg/dL 0.2-1.0 [facility] ([facility]) Albumin/Globulin Ratio 1.1 1.2-2.2 [facility] ([facility]) Albumin 3.7 GM/DL 3.2-5.2 [facility] ([facility]) ID Date Data Source [id number] 12/17/2020 02:23:00 PM EDT [facility] ([facility]) Name Value Range Interpretation Code Description Data Patrizia rce(s) Supporting Document(s) Hemoglobin 15.5 g/dL 12.0-15.5 [facility] ([facility]) Red Blood Count 5.08 10 4.00-5.40 [facility] ([facility]) White Blood Count 7.7 10 4.0-10.0 [facility] ([facility]) Hematocrit 48.0 % 36.0-47.0 [facility] ([facility]) Mean Corpuscular Volume 94.5 fl 80.0-96.0 M [facility] ([facility]) Mean Corpuscular HGB Conc 32.3 g/dL 32.0-36.5 [facility] ([facility]) Mean Corpuscular Hemoglobin 30.5 pg 27.0-33.0 [facility] ([facility]) Red Cell Distribution Width 12.6 % 11.5-14.5 [facility] ([facility]) Lymph % 30.6 % 24.0-44.0 [facility] ([facility]) Neutrophils % 53.6 % 36.0-66.0 [facility] Platelet Count, Automated 251 10 150-450 [facility] ([facility]) Baso % 1.4 % 0.0-1.0 [facility] ([facility]) Eos % 3.4 % 0.0-3.0 [facility] ([facility]) Owen % 10.4 % 2.0-8.0 [facility] ([facility]) Neutrophils # 4.1 10 1.5-8.5 [facility] ([facility]) Immature Granulocyte % 0.6 % 0-3.0 [facility] ([facility]) Nucleated Red Blood Cell % 0.0 % 0-0 [facility] ([facility]) Eos # 0.3 10 0.0-0.5 [facility] ([facility]) Lymph # 2.4 10 1.5-5.0 [facility] ([facility]) Owen # 0.8 10 0.0-0.8 [facility] ([facility]) Baso # 0.1 10 0.0-0.2 [facility] ([facility]) ID Date Data Source [id number] 12/17/2020 02:23:00 PM EDT [facility] ([facility]) Name Value Range Interpretation Code Description Data Patrizia rce(s) Supporting Document(s) Platelets [#/volume] in Blood by Automated count 255 10 150-450 [facility] ([facility]) Prothrombin time (PT) Laboratory test result [facility] ([facility]) ID Date Data Source [id number] 12/17/2020 02:23:00 PM EDT [facility] ([facility]) Name Value Range Interpretation Code Description Data Patrizia rce(s) Supporting Document(s) Inr 0.94 [facility] ([facility]) THERAPUTIC HUMAN INR VALUES INDICATIONS NORMAL RANGES PROPHYLAXIS/TREATMENT OF: VENOUS THROMBOSIS 2.0-3.0 PULMONARY EMBOLISM 2.0-3.0 PREVENTION OF SYSTEMIC EMBOLISM FROM: TISSUE HEART VALVES 2.0-3.0 ACUTE MYOCARDIAL INFARCTION 2.0-3.0 VALVULAR HEART DISEASE 2.0-3.0 ATRIAL FIBRILLATION 2.0-3.0 MECHANICAL VALVES(HIGH RISK) 2.5-3.5 RECURRENT MYOCARDIAL INFARCTION 2.5-3.5 Prothrombin Time 12.9 [facility] Partial Thromboplastin Time 37.8 s 25.9-37.0 [facility] ([facility]) ID Date Data Source [id number] 03/18/2020 12:30:00 PM [facility] Name Value Range Interpretation Code Description Data Patrizia rce(s) Supporting Document(s) Coronavirus 2019 Nasopharygeal Laboratory test result [facility] ([facility]) This nucleic acid amplification test was developed and its performance characteristics determined by [facility]. Nucleic acid amplification tests include PCR and [...] detected) result in this assay. Performed at: [facility] [address] [id number] Mother Helper: Jodi Tanner MD, Phone: [phone] Not Detected ID Date Data Source [id number] 03/18/2020 12:30:00 PM [facility] Name Value Range Interpretation Code Description Data Patrizia rce(s) Supporting Document(s) SARS coronavirus 2 RNA [facility] This lab was ordered by [facility] and reported by [facility]. Procedure Social History Code Duration Value Status Description Data Source(s ) Smoking 12/08/2020 12:00:00 AM EDT Current Smoker completed Curre nt Smoker eCW1 ([facility]) Smoking 12/08/2020 12:00:00 AM EDT Current Smoker completed Curre nt Smoker eCW1 ([facility]) Smoking 12/08/2020 12:00:00 AM EDT Current Smoker completed Curre nt Smoker eCW1 ([facility]) Smoking 11/03/2020 12:00:00 AM EDT Current Smoker completed Curre nt Smoker eCW1 ([facility]) Smoking 07/06/2020 12:00:00 AM EST Current Smoker completed Curre nt Smoker eCW1 ([facility]) Smoking 07/06/2020 12:00:00 AM EST Current Smoker completed Curre nt Smoker eCW1 ([facility]) Smoking 07/06/2020 12:00:00 AM EST Current Smoker completed Curre nt Smoker eCW1 ([facility]) Vital Signs ID Date Data Source UNK Name Value Range Interpretation Code Description Data Source(s) Body weight 256.0 [lb_av] 256.0 [lb_av] eCW1 ([facility]) Body height 66 [in_i] 66 [in_i] eCW1 ([facility]) Body mass index (BMI) [Ratio] 41.31 kg/m2 41.31 kg/m2 W1 ([facility]) Heart rate 88 /min 88 /min eCW1 ([facility]) Respiratory rate 20 /min 20 /min W1 ([facility]) Body temperature 97 [degF] 97 [degF] eCW1 ([facility]) Systolic blood pressure 120 mm[Hg] 120 mm[Hg] e CW1 ([facility]) Diastolic blood pressure 80 mm[Hg] 80 mm[Hg] eCW1 ([facility]) Body weight 256.0 [lb_av] 256.0 [lb_av] eCW1 ([facility]placed [facility]) Body height 66 [in_i] 66 [in_i] eCW1 ([facility]) Body mass index (BMI) [Ratio] 41.31 kg/m2 41.31 kg/m2 eCW1 ([facility]) Heart rate 66 /min 66 /min eCW1 ([facility]) Respiratory rate 20 /min 20 /min eCW1 ([facility]) Body temperature 98 [degF] 98 [degF] eCW1 ([facility]) Systolic blood pressure 140 mm[Hg] 140 mm[Hg] e CW1 ([facility]) Diastolic blood pressure 80 mm[Hg] 80 mm[Hg] eCW1 ([facility]) Body weight 261.0 [lb_av] 261.0 [lb_av] eCW1 ([facility]) Body height 66 [in_i] 66 [in_i] eCW1 ([facility]) Body mass index (BMI) [Ratio] 42.12 kg/m2 42.12 kg/m2 eCW1 ([facility]) Heart rate 72 /min 72 /min eCW1 ([facility]) Respiratory rate 18 /min 18 /min eCW1 ([facility]) Body temperature 96.8 [degF] 96.8 [degF] eCW1 ( [facility]) Systolic blood pressure 130 mm[Hg] 130 mm[Hg] e CW1 ([facility]) Diastolic blood pressure 80 mm[Hg] 80 mm[Hg] eCW1 ([facility]) Patient Treatment Plan of Care Planned Activity Planned Date Details Description Data Source (s) Fluconazole 150 MG Oral Tablet 12/08/2020 12:00:00 AM EDT eCW1 ([facility]) Levofloxacin 500 MG Oral Tablet 12/08/2020 12:00:00 AM EDT eCW1 ([facility]) Fluconazole 150 MG Oral Tablet 12/08/2020 12:00:00 AM EDT eCW1 ([facility]) Levofloxacin 500 MG Oral Tablet 12/08/2020 12:00:00 AM EDT eCW1 ([facility]) Fluconazole 150 MG Oral Tablet 12/08/2020 12:00:00 AM EDT eCW1 ([facility]) Levofloxacin 500 MG Oral Tablet 12/08/2020 12:00:00 AM EDT eCW1 ([facility]) Lactulose 667 MG/ML Oral Solution 11/03/2020 12:00:00 AM EDT eCW1 ([facility]) gabapentin 100 MG Oral Capsule 11/02/2020 12:00:00 AM EDT eCW1 ([facility]) gabapentin 100 MG Oral Capsule 11/02/2020 12:00:00 AM EDT eCW1 ([facility]) gabapentin 100 MG Oral Capsule 11/02/2020 12:00:00 AM EDT eCW1 ([facility]) gabapentin 100 MG Oral Capsule 11/02/2020 12:00:00 AM EDT eCW1 ([facility]) Alendronic acid 70 MG Oral Tablet [Fosamax] 07/06/2020 12:00:00 AM EST eCW1 ([facility]) Alendronic acid 70 MG Oral Tablet [Fosamax] 07/06/2020 12:00:00 AM EST eCW1 ([facility]) Alendronic acid 70 MG Oral Tablet [Fosamax] 07/06/2020 12:00:00 AM EST eCW1 ([facility])
--- NOTE | 2021-04-25 04:49 | REPVR ---
PROCEDURE INFORMATION: Exam: XR Chest Exam date and time: 04/25/2021 4:11 AM Age: 65 years old Clinical indication: Other: Chest pain radiating to arms TECHNIQUE: Imaging protocol: XR of the chest. Views: 1 view. COMPARISON: CT ANGIO CHEST 09/24/2019 4:00 PM FINDINGS: Lungs: There are no interval infiltrates. Pleural spaces: Unremarkable. No pleural effusion. No pneumothorax. Heart/Mediastinum: Borderline cardiomegaly. Bones/joints: Unremarkable. Soft tissues: There are generous overlying soft tissues. IMPRESSION: Stable chest since 09/24/2019. No acute interval process is identified. Electronically signed by: Cash Diehl On 04/25/2021 04:49:09 AM
[2021-04-25] MEDS ORDERED: TENECTEPLASE 50 MG KIT (TNKase) (J3101 PER 1MG) IV ONE (04:55)
[2021-04-25 05:02] LABS: RSV AMPLIFICATION NEGATIVE (NEGATIVE)
[2021-04-25] MEDS ORDERED: MORPHINE 4 MG/ML 1ML VIAL/SYRINGE (J2270) IV ONE (05:30)
[2021-04-25 05:36] LABS: CK-MB VALUE MASS 10.9 NG/ML (<3.6); MB/CK RELATIVE INDEX 8.26 (< OR =4)
--- NOTE | 2021-04-25 05:36 | ECGEPIP ---
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
--- NOTE | 2021-04-25 05:43 | ECGEPIP ---
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
[2021-04-25] MEDS ORDERED: NITROGLYCERIN 2% OINT 1 GM *U/D* PKT TOP ONE (05:50)
[2021-04-25 05:55] VITALS: BP 120/68
[2021-04-25 06:25] VITALS: BP 116/74
== END 2021-04-25 06:33 | disposition short-term general hospital (02) ==
LOC: M ED 03:19
DX: I21.3 ST elevation (STEMI) myocardial infarction of unspecified site (principal); Z85.3 Personal history of malignant neoplasm of breast; K21.9 Gastro-esophageal reflux disease without esophagitis; R94.31 Abnormal electrocardiogram [ECG] [EKG]; F17.200 Nicotine dependence, unspecified, uncomplicated; Z90.12 Acquired absence of left breast and nipple; Z86.79 Personal history of other diseases of the circulatory system; Z88.0 Allergy status to penicillin; Z88.6 Allergy status to analgesic agent
CPT/HCPCS: 71045; 80048; 82550; 82553; 84484; 85025; 85610; 87631; 93005; 93041; 94760; 96365; 96375; 99291; 99292; J1644; J2270; J3101

== ENCOUNTER → 2021-06-28 | Outpatient (CLI) | payer MEDICARE ==
[~2021-06-28] MED LIST changes: +ATOR80TA59; +CLOP75TA2; +METO1TAB87
== END ==
LOC: M WHC 10:09
PROVIDERS: ATTEND Internal Medicine Hematology & Oncology
DX: Z12.31 Encounter for screening mammogram for malignant neoplasm of breast (principal); Z85.3 Personal history of malignant neoplasm of breast; Z90.12 Acquired absence of left breast and nipple; Z80.41 Family history of malignant neoplasm of ovary; Z80.3 Family history of malignant neoplasm of breast

== ENCOUNTER → 2021-09-02 | Outpatient (CLI) | payer OTHER | LOC: M PLAIMG 13:06 | PROVIDERS: ATTEND Physician Assistant | DX: M51.16 Intervertebral disc disorders with radiculopathy, lumbar region (principal) ==

== ENCOUNTER → 2021-12-07 | Outpatient (CLI) | payer OTHER, MEDICAID, MEDICARE ==
[2021-12-07 13:12] LABS: PLATELET COUNT, AUTOMATED 271 10^3/uL (150-450)
[2021-12-07 13:25] LABS: INR 0.95; PROTHROMBIN TIME 13.1 SECONDS (12.7-14.5)
[2021-12-07 13:26] LABS: PARTIAL THROMBOPLASTIN TIME 34.8 SECONDS (25.9-37.0)
== END ==
LOC: M WUC 11:39
PROVIDERS: ATTEND Physician Assistant
DX: M51.16 Intervertebral disc disorders with radiculopathy, lumbar region (principal)

== ENCOUNTER → 2021-12-07 | Outpatient (CLI) | payer MEDICARE, MEDICAID ==
[2021-12-07 13:51] LABS: ALBUMIN 3.5 GM/DL (3.2-5.2); ALT/SGPT 28 U/L (12-78); BILIRUBIN,TOTAL 0.4 MG/DL (0.2-1.0); BLOOD UREA NITROGEN 9 MG/DL (7-18); CALCIUM LEVEL 9.4 MG/DL (8.8-10.2); CARBON DIOXIDE LEVEL 29 MEQ/L (21-32); CHLORIDE LEVEL 106 MEQ/L (98-107); CHOLESTEROL LEVEL 121 MG/DL (<200); CHOLESTEROL RISK RATIO 3.558 (<5); CREATININE FOR GFR 0.81 MG/DL (0.55-1.30); GLOMERULAR FILTRATION RATE > 60.0 (>45); GLUCOSE, FASTING 152 MG/DL (70-100); HDL CHOLESTEROL 34 MG/DL (>40); LDL CHOLESTEROL 55 MG/DL (<100); NON-HDL-C 87 MG/DL; POTASSIUM SERUM 4.3 MEQ/L (3.5-5.1); SODIUM LEVEL 141 MEQ/L (136-145); TOTAL PROTEIN 6.5 GM/DL (6.4-8.2); TRIGLYCERIDES LEVEL 161 MG/DL (<150)
[2021-12-07 14:33] LABS: TOTAL 25(OH) VITAMIN D 38.5 NG/ML (30.0-100.0)
== END ==
LOC: M WUC 11:34
PROVIDERS: ATTEND Nurse Practitioner Adult Health
DX: E55.9 Vitamin D deficiency, unspecified (principal); I50.30 Unspecified diastolic (congestive) heart failure; E03.9 Hypothyroidism, unspecified; R73.01 Impaired fasting glucose; E78.2 Mixed hyperlipidemia; Z79.899 Other long term (current) drug therapy

== ENCOUNTER → 2022-01-06 | Outpatient (CLI) | payer MEDICARE, OTHER ==
[~2022-01-06] VITALS: Ht 165.1 cm; Wt 112.1 kg
[~2022-01-06] MED LIST changes: +DEXA1.5T PO; +MORP15TA2 PO
[2022-01-06 11:08] VITALS: BP 160/92
== END ==
LOC: M PAL 10:48
PROVIDERS: ATTEND Nurse Practitioner Adult Health
DX: G62.0 Drug-induced polyneuropathy (principal); Z85.3 Personal history of malignant neoplasm of breast; G89.29 Other chronic pain; G89.3 Neoplasm related pain (acute) (chronic); M54.50 Low back pain, unspecified; S39.82XS Other specified injuries of lower back, sequela; Z90.12 Acquired absence of left breast and nipple; Z99.3 Dependence on wheelchair; R25.2 Cramp and spasm; K90.9 Intestinal malabsorption, unspecified; E55.9 Vitamin D deficiency, unspecified; I42.9 Cardiomyopathy, unspecified; I25.2 Old myocardial infarction; Z95.5 Presence of coronary angioplasty implant and graft; M85.80 Other specified disorders of bone density and structure, unspecified site; Z51.5 Encounter for palliative care; Z88.0 Allergy status to penicillin; Z88.6 Allergy status to analgesic agent; Z79.899 Other long term (current) drug therapy; Z79.891 Long term (current) use of opiate analgesic; Z79.82 Long term (current) use of aspirin; Z79.890 Hormone replacement therapy; Z95.1 Presence of aortocoronary bypass graft

== ENCOUNTER → 2022-03-10 | Outpatient (CLI) | payer MEDICARE, OTHER ==
[~2022-03-10] MED LIST changes: +OXYC5CAP56 PO
== END ==
LOC: M PAL 11:28
PROVIDERS: ATTEND Nurse Practitioner Adult Health
DX: C50.912 Malignant neoplasm of unspecified site of left female breast (principal); G89.3 Neoplasm related pain (acute) (chronic); I71.21 Aneurysm of the ascending aorta, without rupture; G62.9 Polyneuropathy, unspecified; I21.29 ST elevation (STEMI) myocardial infarction involving other sites; I42.9 Cardiomyopathy, unspecified; E55.9 Vitamin D deficiency, unspecified; E66.9 Obesity, unspecified; M54.50 Low back pain, unspecified; M79.661 Pain in right lower leg; M79.662 Pain in left lower leg; M85.88 Other specified disorders of bone density and structure, other site; Z88.8 Allergy status to other drugs, medicaments and biological substances; Z51.5 Encounter for palliative care; Z88.0 Allergy status to penicillin; Z79.82 Long term (current) use of aspirin; Z79.899 Other long term (current) drug therapy; Z79.891 Long term (current) use of opiate analgesic; Z90.12 Acquired absence of left breast and nipple; Z92.21 Personal history of antineoplastic chemotherapy

== ENCOUNTER → 2022-04-26 | Outpatient (CLI) | payer MEDICARE, OTHER ==
[~2022-04-26] VITALS: Ht 165.1 cm; Wt 117.1 kg
[~2022-04-26] MED LIST changes: -ATOR80TA59; +ATOR80TA59 PO; -CLOP75TA2; +CLOP75TA2 PO; -METO1TAB87; +METO1TAB87 PO
[2022-04-26 09:15] VITALS: BP 118/80
== END ==
LOC: M PAL 08:43
PROVIDERS: ATTEND Nurse Practitioner Adult Health
DX: C50.912 Malignant neoplasm of unspecified site of left female breast (principal); G89.29 Other chronic pain; G89.3 Neoplasm related pain (acute) (chronic); E55.9 Vitamin D deficiency, unspecified; E66.9 Obesity, unspecified; G62.9 Polyneuropathy, unspecified; I71.21 Aneurysm of the ascending aorta, without rupture; I25.2 Old myocardial infarction; I42.9 Cardiomyopathy, unspecified; M54.50 Low back pain, unspecified; M79.604 Pain in right leg; M79.605 Pain in left leg; M79.602 Pain in left arm; M85.88 Other specified disorders of bone density and structure, other site; R60.9 Edema, unspecified; R06.02 Shortness of breath; Z79.891 Long term (current) use of opiate analgesic; Z79.899 Other long term (current) drug therapy; Z79.82 Long term (current) use of aspirin; Z90.12 Acquired absence of left breast and nipple; Z51.5 Encounter for palliative care; Z92.21 Personal history of antineoplastic chemotherapy

== ENCOUNTER → 2022-06-07 | Outpatient (CLI) | payer MEDICARE, OTHER ==
[~2022-06-07] VITALS: Ht 165.1 cm; Wt 118.7 kg
[~2022-06-07] MED LIST changes: +BREAST PROSTHESIS L XX; +MASTECTOMY BRA LEFT XX
[2022-06-07 12:59] VITALS: BP 131/75
== END ==
LOC: M PAL 12:50
PROVIDERS: ATTEND Nurse Practitioner Adult Health
DX: C50.912 Malignant neoplasm of unspecified site of left female breast (principal); G89.29 Other chronic pain; G89.3 Neoplasm related pain (acute) (chronic); Z51.5 Encounter for palliative care; E55.9 Vitamin D deficiency, unspecified; E66.9 Obesity, unspecified; G62.9 Polyneuropathy, unspecified; I71.21 Aneurysm of the ascending aorta, without rupture; I25.2 Old myocardial infarction; I42.9 Cardiomyopathy, unspecified; M54.50 Low back pain, unspecified; M79.604 Pain in right leg; M79.605 Pain in left leg; M79.602 Pain in left arm; M85.88 Other specified disorders of bone density and structure, other site; R60.9 Edema, unspecified; R06.02 Shortness of breath; Z79.891 Long term (current) use of opiate analgesic; Z79.899 Other long term (current) drug therapy; Z90.12 Acquired absence of left breast and nipple; Z79.82 Long term (current) use of aspirin; Z92.21 Personal history of antineoplastic chemotherapy; I89.0 Lymphedema, not elsewhere classified

== ENCOUNTER 2022-06-08 14:51 | Outpatient (RCR) | payer MEDICARE, OTHER ==
[2022-06-09] MEDS ORDERED: BREAST PROSTHESIS L XX ×2 (13:18→15:26)
[2022-06-09] MEDS ORDERED: MASTECTOMY BRA LEFT XX ×2 (13:18→15:26)
[2022-06-16] MEDS ORDERED: OXYC-517 PO (16:02)
== END 2022-06-14 ==
LOC: M PT 14:51
PROVIDERS: ATTEND Nurse Practitioner Adult Health
DX: I89.0 Lymphedema, not elsewhere classified (principal)

== ENCOUNTER 2022-06-20 14:43 | Outpatient (RCR) | payer MEDICARE ==
[2022-06-24] MEDS ORDERED: VARE0.5T (10:17)
[2022-06-30] MEDS ORDERED: MASTECTOMY BRA LEFT XX ×2 (07:58→07:59)
[2022-07-13] MEDS ORDERED: OXYC-517 PO (07:25)
== END 2022-07-12 ==
LOC: M PT 14:43
PROVIDERS: ATTEND Nurse Practitioner Adult Health
DX: I89.0 Lymphedema, not elsewhere classified (principal)

== ENCOUNTER → 2022-06-29 | Outpatient (CLI) | payer MEDICARE ==
[~2022-06-29] MED LIST changes: +VARE0.5T
== END ==
LOC: M RAD 09:27
PROVIDERS: ATTEND Internal Medicine Hematology & Oncology
DX: Z12.2 Encounter for screening for malignant neoplasm of respiratory organs (principal); C50.912 Malignant neoplasm of unspecified site of left female breast; F17.219 Nicotine dependence, cigarettes, with unspecified nicotine-induced disorders

== ENCOUNTER → 2022-08-04 | Outpatient (CLI) | payer MEDICARE, OTHER | LOC: M PAL 07:50 | PROVIDERS: ATTEND Nurse Practitioner Adult Health | DX: C50.912 Malignant neoplasm of unspecified site of left female breast (principal); G89.29 Other chronic pain; G89.3 Neoplasm related pain (acute) (chronic); G62.9 Polyneuropathy, unspecified; I89.0 Lymphedema, not elsewhere classified; I25.2 Old myocardial infarction; I42.9 Cardiomyopathy, unspecified; Z90.12 Acquired absence of left breast and nipple; Z51.5 Encounter for palliative care; Z79.899 Other long term (current) drug therapy; Z79.82 Long term (current) use of aspirin; Z92.21 Personal history of antineoplastic chemotherapy; Z79.891 Long term (current) use of opiate analgesic ==

== ENCOUNTER 2022-10-24 14:18 | Emergency (ER) | payer MEDICARE ==
[~2022-10-24] VITALS: Ht 165.1 cm; Wt 117.7 kg
[2022-10-24 14:19] VITALS: BP 128/77; TEMP 97.6; O2SAT 100
[2022-10-24 15:22] LABS: BASO # 0.1 10^3/uL (0.0-0.2); BASO % 1.3 % (0.0-1.0); EOS # 0.4 10^3/uL (0.0-0.5); EOS % 4.5 % (0.0-3.0); HEMATOCRIT 41.6 % (36.0-47.0); HEMOGLOBIN 13.5 g/dl (12.0-15.5); LYMPH # 2.2 10^3/uL (1.5-5.0); LYMPH % 24.9 % (24.0-44.0); MEAN CORPUSCULAR HGB CONC 32.5 g/dl (32.0-36.5); MEAN CORPUSCULAR VOLUME 95.6 fl (80.0-96.0); MONO # 0.5 10^3/uL (0.0-0.8); MONO % 5.7 % (2.0-8.0); NEUTROPHILS # 5.6 10^3/uL (1.5-8.5); NEUTROPHILS % 63.4 % (36.0-66.0); PLATELET COUNT, AUTOMATED 254 10^3/uL (150-450); RED BLOOD COUNT 4.35 10^6/uL (4.00-5.40); WHITE BLOOD COUNT 8.8 10^3/uL (4.0-10.0)
[2022-10-24 15:37] LABS: ALBUMIN 3.7 G/DL (3.2-5.2); ALKALINE PHOSPHATASE 86 U/L (46-116); ALT/SGPT 75 U/L (7.0-40); AST/SGOT 53 U/L (<34); BILIRUBIN,DIRECT 0.1 MG/DL (<0.4); BILIRUBIN,TOTAL 0.4 MG/DL (0.3-1.2); BLOOD UREA NITROGEN 15 MG/DL (9-23); CALCIUM LEVEL 8.4 MG/DL (8.3-10.6); CARBON DIOXIDE LEVEL 26 MMOL/L (20-31); CHLORIDE LEVEL 105 MMOL/L (98-107); CREATININE FOR GFR 0.76 MG/DL (0.55-1.30); GLOMERULAR FILTRATION RATE > 60.0 (>45); GLUCOSE, FASTING 261 MG/DL (74-106); MAGNESIUM LEVEL 1.7 MG/DL (1.8-2.4); PHOSPHORUS LEVEL 2.9 MG/DL (2.4-5.1); POTASSIUM SERUM 4.2 MMOL/L (3.5-5.1); SODIUM LEVEL 139 MMOL/L (136-145); TOTAL PROTEIN 6.1 G/DL (5.7-8.2)
== END 2022-10-24 16:30 | disposition left against medical advice (07) ==
LOC: M ED 14:18
DX: Z53.21 Procedure and treatment not carried out due to patient leaving prior to being seen by health care provider (principal)

== ENCOUNTER → 2022-11-17 | Outpatient (CLI) | payer MEDICARE | LOC: M PAL 08:01 | PROVIDERS: ATTEND Nurse Practitioner Adult Health | DX: C50.912 Malignant neoplasm of unspecified site of left female breast (principal); G89.29 Other chronic pain; G89.3 Neoplasm related pain (acute) (chronic); R19.7 Diarrhea, unspecified; G62.9 Polyneuropathy, unspecified; Z51.5 Encounter for palliative care; Z90.12 Acquired absence of left breast and nipple; Z92.21 Personal history of antineoplastic chemotherapy; Z79.891 Long term (current) use of opiate analgesic ==

== ENCOUNTER → 2022-11-30 | Outpatient (CLI) | payer MEDICARE | LOC: M WHC 14:00 | PROVIDERS: ATTEND Nurse Practitioner | DX: Z12.31 Encounter for screening mammogram for malignant neoplasm of breast (principal); M85.88 Other specified disorders of bone density and structure, other site; Z85.3 Personal history of malignant neoplasm of breast; Z90.12 Acquired absence of left breast and nipple; M85.851 Other specified disorders of bone density and structure, right thigh; M85.852 Other specified disorders of bone density and structure, left thigh ==

== ENCOUNTER → 2022-12-27 | Outpatient (CLI) | payer MEDICARE ==
[2022-12-27 17:29] LABS: ALBUMIN 3.7 G/DL (3.2-5.2); ALKALINE PHOSPHATASE 87 U/L (46-116); ALT/SGPT 58 U/L (7.0-40); AST/SGOT 36 U/L (<34); BILIRUBIN,TOTAL 0.5 MG/DL (0.3-1.2); BLOOD UREA NITROGEN 14 MG/DL (9-23); CALCIUM LEVEL 9.4 MG/DL (8.3-10.6); CARBON DIOXIDE LEVEL 28 MMOL/L (20-31); CHLORIDE LEVEL 102 MMOL/L (98-107); CREATININE FOR GFR 0.83 MG/DL (0.55-1.30); GLOMERULAR FILTRATION RATE > 60.0 (>45); GLUCOSE, FASTING 147 MG/DL (74-106); POTASSIUM SERUM 4.3 MMOL/L (3.5-5.1); SODIUM LEVEL 138 MMOL/L (136-145); TOTAL PROTEIN 6.6 G/DL (5.7-8.2)
[2022-12-27 17:31] LABS: THYROID STIMULATING HORMONE 7.809 uIU/ML (0.55-4.78); TOTAL 25(OH) VITAMIN D 34.5 NG/ML (20.0-100.0)
[2022-12-27 17:45] LABS: HEMOGLOBIN A1c 7.4 % (4.0-6.0)
== END ==
LOC: M WUC 13:06
PROVIDERS: ATTEND Nurse Practitioner Adult Health
DX: R73.01 Impaired fasting glucose (principal); E03.9 Hypothyroidism, unspecified; E55.9 Vitamin D deficiency, unspecified; I50.30 Unspecified diastolic (congestive) heart failure; Z79.890 Hormone replacement therapy; Z79.82 Long term (current) use of aspirin; Z79.899 Other long term (current) drug therapy

== ENCOUNTER → 2023-03-21 | Outpatient (CLI) | payer MEDICARE, OTHER | LOC: M PAL 13:45 | PROVIDERS: ATTEND Nurse Practitioner Adult Health | DX: C50.912 Malignant neoplasm of unspecified site of left female breast (principal); G47.00 Insomnia, unspecified; G62.9 Polyneuropathy, unspecified; G89.29 Other chronic pain; G89.3 Neoplasm related pain (acute) (chronic); I97.2 Postmastectomy lymphedema syndrome; Z51.5 Encounter for palliative care; F41.9 Anxiety disorder, unspecified; Z63.4 Disappearance and death of family member; Z79.02 Long term (current) use of antithrombotics/antiplatelets; Z79.620 Long term (current) use of immunosuppressive biologic; Z79.82 Long term (current) use of aspirin; Z79.890 Hormone replacement therapy; Z79.891 Long term (current) use of opiate analgesic; Z79.899 Other long term (current) drug therapy; Z88.0 Allergy status to penicillin; Z88.1 Allergy status to other antibiotic agents; Z88.6 Allergy status to analgesic agent; Z90.12 Acquired absence of left breast and nipple; Z92.21 Personal history of antineoplastic chemotherapy ==

== ENCOUNTER 2023-04-12 13:36 | Outpatient (RCR) | payer MEDICARE ==
[2023-04-12] MEDS ORDERED: OXYC-517 PO (14:39)
== END 2023-04-13 ==
LOC: M PT 13:36
PROVIDERS: ATTEND Nurse Practitioner Adult Health
DX: I89.0 Lymphedema, not elsewhere classified (principal)

== ENCOUNTER → 2023-05-19 | Outpatient (CLI) | payer MEDICARE, MEDICAID | LOC: M RAD 08:43 | PROVIDERS: ATTEND Nurse Practitioner Adult Health | DX: R10.11 Right upper quadrant pain (principal); K76.89 Other specified diseases of liver; K80.20 Calculus of gallbladder without cholecystitis without obstruction ==

== ENCOUNTER → 2023-05-25 | Outpatient (CLI) | payer MEDICARE, OTHER ==
[~2023-05-25] VITALS: Ht 165.1 cm; Wt 119.5 kg
[2023-05-25 13:08] VITALS: BP 138/95; O2SAT 95
== END ==
LOC: M PAL 12:59
PROVIDERS: ATTEND Nurse Practitioner Adult Health
DX: C50.912 Malignant neoplasm of unspecified site of left female breast (principal); G62.9 Polyneuropathy, unspecified; G89.29 Other chronic pain; G89.3 Neoplasm related pain (acute) (chronic); I97.2 Postmastectomy lymphedema syndrome; R10.10 Upper abdominal pain, unspecified; Z51.5 Encounter for palliative care; F41.9 Anxiety disorder, unspecified; Z79.02 Long term (current) use of antithrombotics/antiplatelets; Z79.620 Long term (current) use of immunosuppressive biologic; Z79.82 Long term (current) use of aspirin; Z79.890 Hormone replacement therapy; Z79.891 Long term (current) use of opiate analgesic; Z79.899 Other long term (current) drug therapy; Z88.0 Allergy status to penicillin; Z88.6 Allergy status to analgesic agent; Z90.12 Acquired absence of left breast and nipple; Z92.21 Personal history of antineoplastic chemotherapy

== ENCOUNTER → 2023-06-27 | Outpatient (CLI) | payer MEDICARE, MEDICAID | LOC: M PLAIMG 08:58 | PROVIDERS: ATTEND Nurse Practitioner Adult Health | DX: I25.10 Atherosclerotic heart disease of native coronary artery without angina pectoris (principal) ==

== ENCOUNTER → 2023-08-24 | Outpatient (CLI) | payer MEDICARE, OTHER ==
[~2023-08-24] VITALS: Ht 162.6 cm; Wt 113.5 kg
[~2023-08-24] MED LIST changes: +METF-839 PO
[2023-08-24 13:09] VITALS: BP 137/93; O2SAT 94
== END ==
LOC: M PAL 12:51
PROVIDERS: ATTEND Nurse Practitioner Adult Health
DX: G89.3 Neoplasm related pain (acute) (chronic) (principal); G89.29 Other chronic pain; C50.912 Malignant neoplasm of unspecified site of left female breast; G62.9 Polyneuropathy, unspecified; I97.2 Postmastectomy lymphedema syndrome; Z51.5 Encounter for palliative care; Z63.4 Disappearance and death of family member; Z79.02 Long term (current) use of antithrombotics/antiplatelets; Z79.620 Long term (current) use of immunosuppressive biologic; Z79.82 Long term (current) use of aspirin; Z79.84 Long term (current) use of oral hypoglycemic drugs; Z79.890 Hormone replacement therapy; Z79.891 Long term (current) use of opiate analgesic; Z79.899 Other long term (current) drug therapy; Z88.0 Allergy status to penicillin; Z88.1 Allergy status to other antibiotic agents; Z88.6 Allergy status to analgesic agent; Z90.12 Acquired absence of left breast and nipple; Z92.21 Personal history of antineoplastic chemotherapy; I25.2 Old myocardial infarction

== ENCOUNTER → 2023-09-06 | Outpatient (CLI) | payer MEDICARE, OTHER ==
[2023-09-06 13:43] LABS: HEMOGLOBIN A1c 7.8 % (4.0-6.0)
[2023-09-06 13:48] LABS: ALBUMIN 3.9 G/DL (3.2-5.2); ALKALINE PHOSPHATASE 78 U/L (46-116); ALT/SGPT 16 U/L (7.0-40); AST/SGOT 20 U/L (<34); BILIRUBIN,TOTAL 0.5 MG/DL (0.3-1.2); BLOOD UREA NITROGEN 11 MG/DL (9-23); CALCIUM LEVEL 9.1 MG/DL (8.3-10.6); CARBON DIOXIDE LEVEL 28 MMOL/L (20-31); CHLORIDE LEVEL 105 MMOL/L (98-107); CREATININE FOR GFR 0.74 MG/DL (0.55-1.30); GLOMERULAR FILTRATION RATE > 60.0 (>45); GLUCOSE, FASTING 169 MG/DL (74-106); POTASSIUM SERUM 4.2 MMOL/L (3.5-5.1); SODIUM LEVEL 142 MMOL/L (136-145); TOTAL PROTEIN 6.5 G/DL (5.7-8.2)
== END ==
LOC: M WUC 10:38
PROVIDERS: ATTEND Nurse Practitioner Adult Health
DX: I50.30 Unspecified diastolic (congestive) heart failure (principal); R73.01 Impaired fasting glucose

== ENCOUNTER → 2023-09-06 | Outpatient (CLI) | payer MEDICARE, OTHER | LOC: M RAD 13:29 | PROVIDERS: ATTEND Nurse Practitioner | DX: F17.210 Nicotine dependence, cigarettes, uncomplicated (principal) ==

== ENCOUNTER → 2023-10-17 | Outpatient (CLI) | payer MEDICARE, MEDICAID ==
[2023-10-17 16:54] LABS: ALBUMIN 3.7 G/DL (3.2-5.2); ALKALINE PHOSPHATASE 79 U/L (46-116); ALT/SGPT 24 U/L (7.0-40); AST/SGOT 17 U/L (<34); BILIRUBIN,TOTAL 0.3 MG/DL (0.3-1.2); BLOOD UREA NITROGEN 12 MG/DL (9-23); CALCIUM LEVEL 9.8 MG/DL (8.3-10.6); CARBON DIOXIDE LEVEL 29 MMOL/L (20-31); CHLORIDE LEVEL 107 MMOL/L (98-107); CHOLESTEROL LEVEL 113 MG/DL (<200); CHOLESTEROL RISK RATIO 2.99 (<5); CREATININE FOR GFR 0.67 MG/DL (0.55-1.30); GLOMERULAR FILTRATION RATE > 60.0 (>45); GLUCOSE, FASTING 113 MG/DL (74-106); HDL CHOLESTEROL 37.7 MG/DL (>40); LDL CHOLESTEROL 43.3 MG/DL (<100); MAGNESIUM LEVEL 1.5 MG/DL (1.8-2.4); NON-HDL-C 75.3 MG/DL; POTASSIUM SERUM 4.4 MMOL/L (3.5-5.1); SODIUM LEVEL 144 MMOL/L (136-145); TOTAL PROTEIN 6.5 G/DL (5.7-8.2); TRIGLYCERIDES LEVEL 160 MG/DL (<150)
[2023-10-17 16:55] LABS: THYROID STIMULATING HORMONE 0.425 uIU/ML (0.55-4.78); TOTAL 25(OH) VITAMIN D 54.3 NG/ML (20.0-100.0)
[2023-10-17 16:56] LABS: FERRITIN 74.6 NG/ML (7.3-270.7); FREE T4 1.27 NG/DL (0.89-1.76)
[2023-10-17 16:57] LABS: HEMATOCRIT 44.3 % (36.0-47.0); MEAN CORPUSCULAR HEMOGLOBIN 31.3 pg (27.0-33.0); MEAN CORPUSCULAR HGB CONC 31.6 g/dl (32.0-36.5); MEAN CORPUSCULAR VOLUME 99.1 fl (80.0-96.0); PLATELET COUNT, AUTOMATED 308 10^3/uL (150-450); RED BLOOD COUNT 4.47 10^6/uL (4.00-5.40); WHITE BLOOD COUNT 10.3 10^3/uL (4.0-10.0)
[2023-10-17 17:08] LABS: CREATININE, URINE 124.7 MG/DL; MAU/CREAT RATIO 3.2 MCG/MG (0.0-30.0)
[2023-10-17 17:49] LABS: HEMOGLOBIN A1c 6.2 % (4.0-6.0)
== END ==
LOC: M WUC 10:48
PROVIDERS: ATTEND Nurse Practitioner Adult Health
DX: E55.9 Vitamin D deficiency, unspecified (principal); I50.30 Unspecified diastolic (congestive) heart failure; E03.9 Hypothyroidism, unspecified; E78.2 Mixed hyperlipidemia; E11.9 Type 2 diabetes mellitus without complications; G25.81 Restless legs syndrome

== ENCOUNTER → 2023-11-23 | Outpatient (CLI) | payer MEDICARE, OTHER ==
[~2023-11-23] VITALS: Ht 165.1 cm; Wt 111.4 kg
[2023-11-23 13:16] VITALS: BP 128/86; O2SAT 95
== END ==
LOC: M PAL 12:56
PROVIDERS: ATTEND Nurse Practitioner Adult Health
DX: G89.3 Neoplasm related pain (acute) (chronic) (principal); G89.29 Other chronic pain; C50.912 Malignant neoplasm of unspecified site of left female breast; G62.9 Polyneuropathy, unspecified; I97.2 Postmastectomy lymphedema syndrome; K80.20 Calculus of gallbladder without cholecystitis without obstruction; R51.9 Headache, unspecified; I25.2 Old myocardial infarction; Z51.5 Encounter for palliative care; Z63.4 Disappearance and death of family member; Z79.02 Long term (current) use of antithrombotics/antiplatelets; Z79.620 Long term (current) use of immunosuppressive biologic; Z79.82 Long term (current) use of aspirin; Z79.84 Long term (current) use of oral hypoglycemic drugs; Z79.890 Hormone replacement therapy; Z79.891 Long term (current) use of opiate analgesic; Z79.899 Other long term (current) drug therapy; Z88.0 Allergy status to penicillin; Z88.1 Allergy status to other antibiotic agents; Z88.6 Allergy status to analgesic agent; Z90.12 Acquired absence of left breast and nipple; Z92.21 Personal history of antineoplastic chemotherapy

== ENCOUNTER → 2023-12-07 | Outpatient (CLI) | payer MEDICARE, OTHER | LOC: M PLARAD 13:34 | PROVIDERS: ATTEND Physical Medicine & Rehabilitation | DX: M54.17 Radiculopathy, lumbosacral region (principal); M51.27 Other intervertebral disc displacement, lumbosacral region ==

== ENCOUNTER → 2024-01-31 | Outpatient (CLI) | payer MEDICARE, OTHER | LOC: M WHC 13:38 | PROVIDERS: ATTEND Nurse Practitioner | DX: Z85.3 Personal history of malignant neoplasm of breast (principal) ==

== ENCOUNTER → 2024-01-31 | Outpatient (CLI) | payer MEDICARE | LOC: M WHC 13:21 | PROVIDERS: ATTEND Internal Medicine Hematology & Oncology | DX: R22.1 Localized swelling, mass and lump, neck (principal); Z85.3 Personal history of malignant neoplasm of breast | CPT/HCPCS: 76536; 77065; G0279 ==

== ENCOUNTER → 2024-02-05 | Outpatient (REF) | payer MEDICARE ==
[2024-02-05 13:47] LABS: HEMOGLOBIN A1c 6.2 % (4.0-6.0)
== END ==
LOC: M LAB REF 11:56
PROVIDERS: ATTEND Nurse Practitioner Adult Health
DX: E11.9 Type 2 diabetes mellitus without complications (principal)

== ENCOUNTER → 2024-02-22 | Outpatient (CLI) | payer MEDICARE ==
[2024-02-22 12:11] LABS: PLATELET COUNT, AUTOMATED 278 10^3/uL (150-450)
[2024-02-22 12:28] LABS: INR 1.03; PARTIAL THROMBOPLASTIN TIME 32.2 SECONDS (24.8-34.2); PROTHROMBIN TIME 13.2 SECONDS (12.5-14.5)
== END ==
LOC: M WUC 10:09
PROVIDERS: ATTEND Physician Assistant
DX: Z01.818 Encounter for other preprocedural examination (principal)

== ENCOUNTER → 2024-02-22 | Outpatient (CLI) | payer MEDICARE ==
[~2024-02-22] MED LIST changes: +LIDOCAINE 1% MDV 20ML VIAL As Ordered ONE
[2024-02-22 09:19] VITALS: TEMP 97.1
[2024-02-22 09:48] VITALS: BP 123/68; O2SAT 96
== END ==
LOC: M IRPRO 09:08
PROVIDERS: ATTEND Internal Medicine Hematology & Oncology
DX: Z01.818 Encounter for other preprocedural examination (principal); R22.1 Localized swelling, mass and lump, neck; Z85.3 Personal history of malignant neoplasm of breast; Z79.01 Long term (current) use of anticoagulants

== ENCOUNTER → 2024-02-27 | Outpatient (CLI) | payer MEDICARE, OTHER ==
[~2024-02-27] VITALS: Ht 165.1 cm; Wt 112.0 kg
[~2024-02-27] MED LIST changes: -LIDOCAINE 1% MDV 20ML VIAL As Ordered ONE
[2024-02-27 13:12] VITALS: BP 124/85; O2SAT 96
== END ==
LOC: M PAL 12:55
PROVIDERS: ATTEND Nurse Practitioner Adult Health
DX: G89.3 Neoplasm related pain (acute) (chronic) (principal); G89.29 Other chronic pain; C50.912 Malignant neoplasm of unspecified site of left female breast; G62.9 Polyneuropathy, unspecified; I97.2 Postmastectomy lymphedema syndrome; K80.20 Calculus of gallbladder without cholecystitis without obstruction; R51.9 Headache, unspecified; I25.2 Old myocardial infarction; Z51.5 Encounter for palliative care; Z63.4 Disappearance and death of family member; Z79.02 Long term (current) use of antithrombotics/antiplatelets; Z79.620 Long term (current) use of immunosuppressive biologic; Z79.82 Long term (current) use of aspirin; Z79.84 Long term (current) use of oral hypoglycemic drugs; Z79.890 Hormone replacement therapy; Z79.891 Long term (current) use of opiate analgesic; Z79.899 Other long term (current) drug therapy; Z88.0 Allergy status to penicillin; Z88.1 Allergy status to other antibiotic agents; Z88.6 Allergy status to analgesic agent; Z90.12 Acquired absence of left breast and nipple; Z92.21 Personal history of antineoplastic chemotherapy; Z99.89 Dependence on other enabling machines and devices

== ENCOUNTER → 2024-05-27 | Outpatient (CLI) | payer MEDICARE ==
[~2024-05-27] VITALS: Ht 165.1 cm; Wt 114.0 kg
[2024-05-27 14:09] VITALS: BP 137/90; O2SAT 95
== END ==
LOC: M PAL 13:50
PROVIDERS: ATTEND Nurse Practitioner Adult Health
DX: Z51.5 Encounter for palliative care (principal); C50.919 Malignant neoplasm of unspecified site of unspecified female breast; G89.29 Other chronic pain; G62.0 Drug-induced polyneuropathy; M54.9 Dorsalgia, unspecified; Z92.21 Personal history of antineoplastic chemotherapy; Z63.4 Disappearance and death of family member; Z79.891 Long term (current) use of opiate analgesic; Z79.82 Long term (current) use of aspirin; Z79.02 Long term (current) use of antithrombotics/antiplatelets; Z79.84 Long term (current) use of oral hypoglycemic drugs; Z79.890 Hormone replacement therapy; Z79.899 Other long term (current) drug therapy; Z90.12 Acquired absence of left breast and nipple; Z99.89 Dependence on other enabling machines and devices; Z88.0 Allergy status to penicillin; Z88.1 Allergy status to other antibiotic agents; Z88.6 Allergy status to analgesic agent

== ENCOUNTER → 2024-08-26 | Outpatient (CLI) | payer MEDICARE ==
[~2024-08-26] VITALS: Ht 162.6 cm; Wt 118.3 kg
[~2024-08-26] MED LIST changes: +ONDA-282 PO
[2024-08-26 14:30] VITALS: BP 148/101; O2SAT 96
== END ==
LOC: M PAL 13:53
PROVIDERS: ATTEND Physician Assistant
DX: Z51.5 Encounter for palliative care (principal); Z85.3 Personal history of malignant neoplasm of breast; M54.50 Low back pain, unspecified; G62.0 Drug-induced polyneuropathy; Z79.891 Long term (current) use of opiate analgesic; Z79.82 Long term (current) use of aspirin; Z79.899 Other long term (current) drug therapy; Z88.0 Allergy status to penicillin; Z88.1 Allergy status to other antibiotic agents; Z88.6 Allergy status to analgesic agent

== ENCOUNTER → 2024-09-16 | Outpatient (CLI) | payer MEDICARE ==
[~2024-09-16] VITALS: Ht 167.6 cm; Wt 117.5 kg
[2024-09-16 14:33] VITALS: BP 151/95; O2SAT 95
== END ==
LOC: M PAL 13:48
PROVIDERS: ATTEND Physician Assistant
DX: Z51.5 Encounter for palliative care (principal); Z85.3 Personal history of malignant neoplasm of breast; M54.50 Low back pain, unspecified; G62.0 Drug-induced polyneuropathy; T45.1X5A Adverse effect of antineoplastic and immunosuppressive drugs, initial encounter; Z79.891 Long term (current) use of opiate analgesic; Z88.0 Allergy status to penicillin; Z88.1 Allergy status to other antibiotic agents; Z88.6 Allergy status to analgesic agent; Z79.82 Long term (current) use of aspirin; Z79.899 Other long term (current) drug therapy

== ENCOUNTER → 2024-11-21 | Outpatient (CLI) | payer MEDICARE | LOC: M RAD 10:46 | PROVIDERS: ATTEND Nurse Practitioner Adult Health | DX: Z12.2 Encounter for screening for malignant neoplasm of respiratory organs (principal); Z87.891 Personal history of nicotine dependence ==

== ENCOUNTER → 2024-12-17 | Outpatient (CLI) | payer MEDICARE ==
[~2024-12-17] VITALS: Ht 172.7 cm; Wt 121.3 kg
[~2024-12-17] MED LIST changes: +SUBO2MIS SL
[2024-12-17 14:18] VITALS: BP 152/94; O2SAT 95
== END ==
LOC: M PAL 13:53
PROVIDERS: ATTEND Physician Assistant
DX: Z51.5 Encounter for palliative care (principal); Z85.3 Personal history of malignant neoplasm of breast; M54.50 Low back pain, unspecified; G62.0 Drug-induced polyneuropathy; Z92.21 Personal history of antineoplastic chemotherapy; Z79.891 Long term (current) use of opiate analgesic; Z88.0 Allergy status to penicillin; Z88.1 Allergy status to other antibiotic agents; Z88.6 Allergy status to analgesic agent; Z79.899 Other long term (current) drug therapy; Z79.82 Long term (current) use of aspirin; Z79.83 Long term (current) use of bisphosphonates; Z79.84 Long term (current) use of oral hypoglycemic drugs

== ENCOUNTER → 2024-12-24 | Outpatient (CLI) | payer MEDICARE ==
[~2024-12-24] MED LIST changes: +BUPR2SUB SL; +FURO80TA2
== END ==
LOC: M PAL 08:52
PROVIDERS: ATTEND Physician Assistant
DX: Z51.5 Encounter for palliative care (principal); Z85.3 Personal history of malignant neoplasm of breast; Z92.21 Personal history of antineoplastic chemotherapy; M54.50 Low back pain, unspecified; G62.82 Radiation-induced polyneuropathy; Z79.891 Long term (current) use of opiate analgesic; Z88.0 Allergy status to penicillin; Z88.1 Allergy status to other antibiotic agents; Z88.6 Allergy status to analgesic agent; Z79.899 Other long term (current) drug therapy; Z79.82 Long term (current) use of aspirin; Z79.02 Long term (current) use of antithrombotics/antiplatelets; Z79.83 Long term (current) use of bisphosphonates

== ENCOUNTER → 2024-12-26 | Outpatient (CLI) | payer MEDICARE ==
[2024-12-26 18:35] LABS: BASO # 0.1 10^3/uL (0.0-0.2); BASO % 1.1 % (0.0-1.0); EOS # 0.4 10^3/uL (0.0-0.5); EOS % 4.4 % (0.0-3.0); LYMPH # 2.8 10^3/uL (1.5-5.0); LYMPH % 32.0 % (24.0-44.0); MONO # 0.9 10^3/uL (0.0-0.8); MONO % 10.2 % (2.0-8.0); NEUTROPHILS # 4.6 10^3/uL (1.5-8.5); NEUTROPHILS % 51.7 % (36.0-66.0); PLATELET COUNT, AUTOMATED 266 10^3/uL (150-450)
[2024-12-26 19:00] LABS: ALT/SGPT 23.0 U/L (7.0-40); AST/SGOT 25.0 U/L (<34); CALCIUM LEVEL 9.1 MG/DL (8.3-10.6); CARBON DIOXIDE LEVEL 26.0 MMOL/L (20-31); CHLORIDE LEVEL 103.0 MMOL/L (98-107); CREATININE FOR GFR 0.88 MG/DL (0.55-1.30); GLOMERULAR FILTRATION RATE 71.5 (>45); POTASSIUM SERUM 4.4 MMOL/L (3.5-5.1); SODIUM LEVEL 140.0 MMOL/L (136-145)
== END ==
LOC: M WUC 14:29
PROVIDERS: ATTEND Nurse Practitioner
DX: C50.912 Malignant neoplasm of unspecified site of left female breast (principal)

== ENCOUNTER → 2024-12-26 | Outpatient (CLI) | payer MEDICARE ==
[2024-12-26 18:36] LABS: PLATELET COUNT, AUTOMATED 272 10^3/uL (150-450)
[2024-12-26 19:01] LABS: ALT/SGPT 22.0 U/L (7.0-40); AST/SGOT 25.0 U/L (<34); CALCIUM LEVEL 9.2 MG/DL (8.3-10.6); CARBON DIOXIDE LEVEL 26.0 MMOL/L (20-31); CHLORIDE LEVEL 103.0 MMOL/L (98-107); CHOLESTEROL LEVEL 105.0 MG/DL (<200); CHOLESTEROL RISK RATIO 3.87 (<5); CREATININE FOR GFR 0.86 MG/DL (0.55-1.30); GLOMERULAR FILTRATION RATE 73.5 (>45); LDL CHOLESTEROL 33.1 MG/DL (<100); MAGNESIUM LEVEL 1.7 MG/DL (1.8-2.4); NON-HDL-C 77.9 MG/DL; POTASSIUM SERUM 4.2 MMOL/L (3.5-5.1); SODIUM LEVEL 141.0 MMOL/L (136-145); TRIGLYCERIDES LEVEL 224.0 MG/DL (<150)
[2024-12-26 19:02] LABS: TOTAL 25(OH) VITAMIN D 58.4 NG/ML (20.0-100.0)
[2024-12-26 19:11] LABS: ESTIMATED AVERAGE GLUCOSE 146.0 MG/DL (60-110)
== END ==
LOC: M WUC 14:32
PROVIDERS: ATTEND Nurse Practitioner Adult Health
DX: I50.30 Unspecified diastolic (congestive) heart failure (principal); E78.2 Mixed hyperlipidemia; Z79.899 Other long term (current) drug therapy; C50.912 Malignant neoplasm of unspecified site of left female breast

== ENCOUNTER → 2024-12-31 | Outpatient (CLI) | payer MEDICARE ==
[~2024-12-31] VITALS: Ht 167.6 cm; Wt 122.3 kg
[2024-12-31 13:14] VITALS: BP 143/86; O2SAT 95
== END ==
LOC: M PAL 12:55
PROVIDERS: ATTEND Physician Assistant
DX: Z51.5 Encounter for palliative care (principal); Z85.3 Personal history of malignant neoplasm of breast; G89.29 Other chronic pain; G62.0 Drug-induced polyneuropathy; Z79.891 Long term (current) use of opiate analgesic; Z88.6 Allergy status to analgesic agent; Z88.0 Allergy status to penicillin; Z88.1 Allergy status to other antibiotic agents; Z79.899 Other long term (current) drug therapy; Z79.82 Long term (current) use of aspirin; Z79.84 Long term (current) use of oral hypoglycemic drugs

== ENCOUNTER → 2025-02-06 | Outpatient (CLI) | payer MEDICARE ==
[~2025-02-06] VITALS: Ht 167.6 cm; Wt 123.5 kg
[~2025-02-06] MED LIST changes: -FURO80TA2; +FURO80TA2 PO
[2025-02-06 13:18] VITALS: BP 142/92; O2SAT 94
== END ==
LOC: M PAL 13:02
PROVIDERS: ATTEND Physician Assistant
DX: Z51.5 Encounter for palliative care (principal); Z85.3 Personal history of malignant neoplasm of breast; M54.59 Other low back pain; G62.0 Drug-induced polyneuropathy; Z79.891 Long term (current) use of opiate analgesic; Z88.0 Allergy status to penicillin; Z88.1 Allergy status to other antibiotic agents; Z88.6 Allergy status to analgesic agent; Z79.82 Long term (current) use of aspirin; Z79.02 Long term (current) use of antithrombotics/antiplatelets; Z79.899 Other long term (current) drug therapy; Z79.84 Long term (current) use of oral hypoglycemic drugs

== ENCOUNTER → 2025-02-24 | Outpatient (CLI) | payer MEDICARE ==
[2025-02-24 18:23] LABS: ALT/SGPT 19.0 U/L (7.0-40); AST/SGOT 21.0 U/L (<34); CALCIUM LEVEL 8.9 MG/DL (8.3-10.6); CARBON DIOXIDE LEVEL 28.0 MMOL/L (20-31); CHLORIDE LEVEL 105.0 MMOL/L (98-107); CREATININE FOR GFR 0.81 MG/DL (0.55-1.30); GLOMERULAR FILTRATION RATE 79.0 (>45); POTASSIUM SERUM 4.0 MMOL/L (3.5-5.1); SODIUM LEVEL 141.0 MMOL/L (136-145)
[2025-02-24 18:24] LABS: FREE T4 1.39 NG/DL (0.89-1.76)
== END ==
LOC: M WUC 15:01
PROVIDERS: ATTEND Nurse Practitioner Adult Health
DX: I87.2 Venous insufficiency (chronic) (peripheral) (principal); E03.9 Hypothyroidism, unspecified

== ENCOUNTER → 2025-03-28 | Outpatient (CLI) | payer MEDICARE ==
[2025-03-28 18:32] LABS: CALCIUM LEVEL 8.6 MG/DL (8.3-10.6); CARBON DIOXIDE LEVEL 29.0 MMOL/L (20-31); CHLORIDE LEVEL 103.0 MMOL/L (98-107); CREATININE FOR GFR 0.92 MG/DL (0.55-1.30); GLOMERULAR FILTRATION RATE 67.8 (>45); MAGNESIUM LEVEL 1.7 MG/DL (1.8-2.4); POTASSIUM SERUM 4.6 MMOL/L (3.5-5.1); SODIUM LEVEL 139.0 MMOL/L (136-145)
== END ==
LOC: M WUC 15:32
PROVIDERS: ATTEND Nurse Practitioner Family
DX: I50.32 Chronic diastolic (congestive) heart failure (principal)

== ENCOUNTER → 2025-04-02 | Outpatient (CLI) | payer MEDICARE ==
[2025-04-02 17:36] LABS: FREE T4 1.52 NG/DL (0.89-1.76)
[2025-04-02 17:47] LABS: ESTIMATED AVERAGE GLUCOSE 157.0 MG/DL (60-110)
== END ==
LOC: M WUC 13:14
PROVIDERS: ATTEND Nurse Practitioner Adult Health
DX: E03.9 Hypothyroidism, unspecified (principal); E11.9 Type 2 diabetes mellitus without complications

== ENCOUNTER → 2025-04-14 | Outpatient (CLI) | payer MEDICARE | LOC: M RAD 08:46 | PROVIDERS: ATTEND Nurse Practitioner Family | DX: R60.9 Edema, unspecified (principal) ==

== ENCOUNTER → 2025-04-21 | Outpatient (CLI) | payer MEDICARE ==
[~2025-04-21] MED LIST changes: +ISOVUE-370 76% 100 ML VIAL ONE
== END ==
LOC: M PLAIMG 12:29
PROVIDERS: ATTEND Nurse Practitioner Family
DX: R06.02 Shortness of breath (principal)
CPT/HCPCS: 71275; Q9967

== ENCOUNTER → 2025-05-06 | Outpatient (CLI) | payer MEDICARE ==
[~2025-05-06] VITALS: Ht 167.6 cm; Wt 120.7 kg
[~2025-05-06] MED LIST changes: -ISOVUE-370 76% 100 ML VIAL ONE; +SPIR-10 PO
[2025-05-06 13:26] VITALS: BP 122/74; O2SAT 94
== END ==
LOC: M PAL 12:50
PROVIDERS: ATTEND Physician Assistant
DX: Z51.5 Encounter for palliative care (principal); Z85.3 Personal history of malignant neoplasm of breast; M54.50 Low back pain, unspecified; G62.0 Drug-induced polyneuropathy; Z79.891 Long term (current) use of opiate analgesic; Z88.6 Allergy status to analgesic agent; Z88.1 Allergy status to other antibiotic agents; Z88.0 Allergy status to penicillin; Z79.82 Long term (current) use of aspirin; Z79.899 Other long term (current) drug therapy; Z79.02 Long term (current) use of antithrombotics/antiplatelets; Z79.84 Long term (current) use of oral hypoglycemic drugs; Z79.83 Long term (current) use of bisphosphonates; I77.810 Thoracic aortic ectasia; R60.9 Edema, unspecified
CPT/HCPCS: 93306; G0463

== ENCOUNTER → 2025-05-09 | Outpatient (CLI) | payer MEDICARE | LOC: M CARPUL 10:19 | PROVIDERS: ATTEND Nurse Practitioner Family | DX: I77.810 Thoracic aortic ectasia (principal); R60.9 Edema, unspecified ==